=== PATIENT | male | born 1950 | race Caucasian/White ===

== ENCOUNTER → 2019-10-18 08:35 | Outpatient (CLI) | payer MEDICARE, OTHER, SELFPAY ==
--- NOTE | 2019-10-18 10:48 | NEURO ---
NCS and/or EMG Patient Report Ordering Doctor: Kennedy Bower DATE OF SERVICE: 10/18/19 Jesus Cobb II presents for electrodiagnostic testing of the upper limbs due to numbness and tingling. Electrodiagnostic findings: Right median motor nerve demonstrates prolonged distal latency with normal amplitude and reduced conduction velocity. Left median motor nerve demonstrates borderline prolonged distal latency with normal amplitude and borderline reduced conduction velocity. Normal ulnar motor response bilaterally, including conduction across the elbow. Prolonged median sensory latency is noted at the wrist and palm bilaterally. On needle EMG, all muscles tested in upper limb showed no evidence of denervation with normal motor unit action potentials. Electrodiagnostic impression: This is an abnormal study in the upper limbs. 1. Electrodiagnostic findings demonstrate bilateral median mononeuropathy. This is consistent with a moderate bilateral carpal tunnel syndrome. If there are any further questions, please do not hesitate to contact me
== END ==
PROVIDERS: PCP Family Medicine; Referring Provider Physician Assistant; Visit Provider Physician Assistant
DX: R20.2 Paresthesia of skin (principal)
CPT/HCPCS: 95886; 95912

== ENCOUNTER 2019-10-20 07:30 | Outpatient (RCR) | payer MEDICARE, OTHER, SELFPAY ==
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
--- NOTE | 2019-10-02 07:48 | HP.PTREVAL_ITS ---
Dr. Steven Wilson, DO, It has been my pleasure to treat JHON STEPHENS II over the last 8 visits for L knee lat meniscal tear, R knee OA. Please see the progress note below for an update on the physical therapy plan of care! Subjective: Doing OK, not much pain unless crawling or stooping. Overall much better. Still hurts to stretch. Objective/Function: Walks without antalgia today. Steps reciprocal two at a t zully without rail, slight R pain transiently. R knee 0-136 aROM and L knee 0- 138. Patella moving well. Strength is 4+/5 knee ext and flexion B. Bigest issue is still flex in HS at -30 90/90 test initially R tighter than L. quads much improved but still complains of much pain with stretching. crawlis, plays catch in kneeling and stands with each leg through half kneel with only slight L knee pain today. Overall much better. Plan Plan: Pt to continue stretching adn see doctor. f/u with PT in about two weeks, call prior if question. Goals Goal 1:: Sleep consistently without waking due to pain. Goal Time Frame: 4-6 Weeks Goal Progress: Goal Met Goal 2:: I approp HEP, gym to work on appropriate strength without pain increase and flexibility. Goal Time Frame: 4-6 Weeks Goal Progress: Goal Met Goal 3:: Pt feel 90% better in overall pain to 1/10 at worst adn manageable Goal Time Frame: 4-6 Weeks Goal Progress: Progressing Goal 4:: LEFS< 25% disability Goal Time Frame: 4-6 Weeks Anticipated Interventions Patient/Client Instruction: Educate patient on: Condition, Plan of Care For the Purpose of:: To decrease pain, To increase oxygenation perfusion, To improve muscle performance and motor function, To increase tolerance to activity/condition/position, To improve ability of physical actions for home/co mmunity/work/leisure Therapeutic Exercise to Include: Strength training, Flexibilty training, Gait and locomotor training, Neuromotor development, Passive ROM, Active ROM For the Purpose of:: To decrease pain, To improve muscle performance and motor function, To increase tolerance to activity/condition/position, To improve ability of physical actions for home/community/work/leisure Manual Therapy Techniques to Include: Mobilization, Passive ROM, Soft tissue mobilization For the Purpose of:: To decrease pain, To improve nutrient delivery to tissue TENS: Yes IF ES: Yes Thermo therapy (hot pack): Yes For the Purpose of:: To decrease pain Please do not hesitate to contact me at [phone] by phone or if you have questions or concerns regarding this new plan of care! Sincerely, Tex Pike, DPT, OCS, CSCS
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
--- NOTE | 2019-12-26 09:55 | HP.PT.NRP ---
JHON Haas ANGELO SAM was seen in my office for initial evaluation on 09/05/19. The following Plan of Care was established for this patient: Initial Frequency: 2-3x /Week Initial Duration: 4-6 Weeks Patient/Client Instruction: Educate patient on: Condition, Plan of Care For the Purpose of:: To decrease pain, To increase oxygenation perfusion, To improve muscle performance and motor function, To increase tolerance to activity/condition/position, To improve ability of physical actions for home/community/work/leisure Therapeutic Exercise to Include: Strength training, Flexibilty training, Gait and locomotor training, Neuromotor development, Passive ROM, Active ROM For the Purpose of:: To decrease pain, To improve muscle performance and motor function, To increase tolerance to activity/condition/position, To improve ability of physical actions for home/community/work/leisure Manual Therapy Techniques to Include: Mobilization, Passive ROM, Soft tissue mobilization For the Purpose of:: To decrease pain, To improve nutrient delivery to tissue TENS: Yes IF ES: Yes Thermo therapy (hot pack): Yes For the Purpose of:: To decrease pain This patient was last seen in our office 10/20/19. Pertinent comments regarding their Physical therapy will appear below: Pt seen 9 visits of POC and was 75% better. Was to continue via HEP and call if needed to return. at this point, it has been over two months and i will discontinue. At this point I will be discontinuing this patient from physical therapy. I would be happy to see this patient again in the future if found appropriate by the physician. Thank you! Tex Pike, DPT, OCS, CSCS
== END 2019-10-20 19:00 | disposition home or self-care (01) ==
LOC: PT 07:30
PROVIDERS: PCP Family Medicine; Referring Provider Orthopaedic Surgery; Visit Provider Orthopaedic Surgery
DX: S83.282D Other tear of lateral meniscus, current injury, left knee, subsequent encounter (principal); M17.11 Unilateral primary osteoarthritis, right knee
CPT/HCPCS: 97110; 97140; 97162; 97164; 97530

== ENCOUNTER 2021-03-03 06:41 | Outpatient (RCR) | payer MEDICARE, OTHER, SELFPAY ==
--- NOTE | 2021-03-03 07:59 | HP.PTEVAL_ITS ---
Patient's Visit Information JHON STEPHENS II is a 70 year old M referred to Physical Therapy by Kennedy Bower PA-C with a diagnosis of spondylolisthesis, OA hip, DDD.. Date of Evaluation: 03/03/21 Physical Therapist: Tex Pike, DPT, OCS, CSCS - Visit Plan Frequency: 2x /Week Duration: 4-6 Weeks Plan: 2x/week for 4-6 weeks for. 1. roolout and stretch hip flexors, quads. 2. progression on NS awareness and DLS NS strength ex on mat then out to gym. 3. TENS and MH with lossings if needed. - Subjective Pain all over. Neck hurts into L arm and finger tingling. Has LBP and x rays show degeneration DDD . Will see patent law specialist for neck. L hip also hurts L>R. Got steroids and it has really helped all of these except R knee. Is weaning down to one pill today and then will be off of it. Does regular [employer] ex: LE trunk rotation, SKC, DKC lifts for LB. Walking and up and down steps is when hips and LB really hurt. It wakes him up in middle of night at times. Sleeps on side. 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 Lifting does not seem to be bothersome. Does all his basic ADLS on his own, hurts to get out of chair. No nukmbness or tingling in legs. - Pain LBP Pain Intensity (Out of 10): 0 Pain Intensity Range: 0, 7 Comment: worse with being on feet. L hip pain Pain Intensity (Out of 10): 0 Pain Intensity Range: 0, 4 - Objective Walks I and without deviations into PT. trasnfers I, stepx reciprocal with one rail without problems today. Lumbar AROM ext mod llimited and painful L, L SB mod llimited and painful, R SB OK, flexion very tight but no pain, just stretching. reflexes 1/3 patella and achilles. Sensation WNL to gross light touch in LE. Strength LE 4+/5 without myotomal problems. HS and hip flexors mod tight. hip and knee Joint AROM and PROM WFL and symmetrical. - KIN, - FADDIR, - slump test, - SLR, - hip scour. - Balance/Special Test Scores Oswestry Low Back Score: 5 - Goals Goal 1:: sleep withut waking due to pain x 1 week Goal Time Frame: 4-6 Weeks Goal 2:: Pt I appropriate HEP to minimize future pain. Goal Time Frame: 4-6 Weeks Goal 3:: Pain LB and hips 1/10 at worst and 75% better Goal Time Frame: 4-6 Weeks Goal 6:: Work at home without increased pain on house care. Goal Time Frame: 4-6 Weeks - Rehabilitation Potential Physical Therapy Diagnosis: LBP and degenerative changes causing pain issues. Rehabilitation Potential: Fair - Anticipated Interventions Patient/Client Instruction: Educate patient on: Condition, Plan of Care For the Purpose of:: To decrease pain, To increase ROM, To improve muscle performance and motor function, To increase tolerance to activity/condition/position, To improve ability of physical actions for home/community/work/leisure Therapeutic Exercise to Include: Strength training, Flexibilty training, Passive ROM, Active ROM, Dynamic Lumbar Stabilization For the Purpose of:: To decrease pain, To increase ROM, To increase tolerance to activity/condition/position, To improve performance and independence with ADL's, To improve ability of physical actions for home/community/work/leisure Manual Therapy Techniques to Include: Mobilization, Passive ROM, Soft tissue mobilization For the Purpose of:: To decrease pain, To increase ROM TENS: Yes Thermo therapy (hot pack): Yes For the Purpose of:: To decrease pain Thank you for the opportunity to evaluate your patient. For Medicare and Medicare HMO plans, please review the plan of care and approve it. It will need to be FAXED BACK to us at [phone] for Medicare purposes. For Medicare only, by signing this I certify the plan of care. Please let me know if there are questions or concerns regarding this plan of care. Physician Signature: Date:
== END 2021-03-03 19:00 | disposition home or self-care (01) ==
LOC: PT 06:41
PROVIDERS: PCP Family Medicine; Referring Provider Physician Assistant; Visit Provider Physician Assistant
DX: M51.36 Other intervertebral disc degeneration, lumbar region (principal); M43.16 Spondylolisthesis, lumbar region; M16.0 Bilateral primary osteoarthritis of hip
CPT/HCPCS: 97110; 97162

== ENCOUNTER 2021-03-05 18:06 | Inpatient (IN) | payer MEDICARE, OTHER, SELFPAY ==
--- NOTE | 2021-03-05 | COL_PTH ---
PATIENT: JHON STEPHENS II LOC: [facility]3 U#:[id number] AGE/SX: 70/M ROOM: [facility] [place] RE03/05/[address]: Dr. Dori Jaquez MD : [id number] BED: 1 DIS: 03/11/2021 SPEC #: [id number] RECD: 03/06/21 07:08 STATUS: LYNNE RELisa #: [id number] JULISA: 03/05/21 00:[address]: Dori Jaquez DEPT: SURGICAL PATHOLOGY RECD BY: George Gasca ENTERED: 03/06/21 08:55 SP TYPE: COLON OTHR DR: Dr. Leonel Peralta MD Tissues: Small intestine biopsy Procedures: Surgery Specimen Level IV HEADER OPERATION: Exploratory laparotomy, small bowel resection PRE-OP DIAGNOSIS: Perforated bowel TISSUE SUBMITTED: Small intestine MICROSCOPIC DIAGNOSIS Small intestine, segmental resection: Segment of bowel with lumen containing a bezoar (3.5 cm in greatest dimension) with ulceration, congestion and hemorrhage (consistent with ischemic changes). Focal transmural acute inflammation. Serosal congestion, acute inflammation and reactive changes. Mesenteric tissue with acute inflammation, fat necrosis and reactive changes and a few food particles.. Mesenteric tissue with one benign lymph node with reactive changes. DEZ:omar 03/10/2021 MICROSCOPIC DESCRIPTION Slides are reviewed. GROSS DESCRIPTION Received in fixative is one container labeled with the patient's name and designated small intestine. The specimen consists of a segment of small intestine with attached mesenteric tissue measuring 31 cm in length. Both resection margins are stapled. The serosa is markedly congested and covered focally with urbina, purulent exudate. The lumen contains fecal material and a fecalith (bezoar) 7 cm away from one resection margin. No mucosal lesion is identified. The mucosa is congested. No obvious perforation is identified. The bezoar measures 3.5 x 3 x 2 cm. Sections will be submitted after fixation. Specimen gross is discussed with surgeon, Dr. Jaquez, on 03/06/21. / DEZ:omar 03/06/21 Sections of the area of bezoar shows markedly thin bowel wall. Sections of mesenteric tissue do not reveal any obviously enlarged lymph node. Financial Data Analyst sections are submitted in five cassettes as follows: 1 - resection margins, 2 - area of bezoar, 3 & 4 - commercial representative sections from the other area, 5??mesenteric tissue. / DEZ:omar 03/07/21 TC:5 CPT: 96873
[2021-03-05 18:08] VITALS: BP 94/69; PULSE 99; RESP 16; TEMP 36.3; O2SAT 97; BMI 30.5
--- NOTE | 2021-03-05 19:02 | EKG12_ITS ---
Test Reason : ABD PAIN Blood Pressure : / mmHG Vent. Rate : 105 BPM Atrial Rate : 105 BPM P-R Int : 144 ms QRS Dur : 082 ms QT Int : 342 ms P-R-T Axes : 023 -44 038 degrees QTc Int : 452 ms Sinus tachycardia Left axis deviation Inferior infarct , age undetermined Abnormal ECG Confirmed by KIRSTEN ADDISON, XENIA ([id number]), copy editor MOSHE GODDARD ([id number]) on 03/10/2021 9:41:08 AM Referred By: KIMBERLY Confirmed By:RUPA CURTIS MD
--- NOTE | 2021-03-05 19:04 | EX.ED.DYSGE1 ---
HPI History of Present Illness Chief Complaint: Abd Pain Informant: patient Onset/Context/Timing Onset: Hours Context: Gradual Onset Current Severity: Moderate Maximum Severity: Severe Narrative Narrative: Patient present secondary to lower abdominal pain. Patient states he ate to him sandwiches this afternoon for lunch. Shortly after he vomited and then developed increasing lower abdominal pain. He denies fever or chills. He denies prior abdominal surgery. He does not believe he has been passing gas. [facility] Medical History Anxiety and depression Allergy/AdvReac Type Severity Reaction Status Date / Time No Known Allergies Allergy Verified 03/05/21 18:08 Social History Smoking Status: Never smoker ROS ROS ED Constitutional Constitutional ED: Reports sweats; Denies chills or fever(s) Eyes Eyes: Denies change in vision ENT ENT ED: Denies sore throat Cardiovascular Cardiovascular: Denies chest pain Respiratory/Chest Respiratory/Chest: Denies cough or dyspnea Gastrointestinal Gastrointestinal: Reports abdominal pain, nausea and vomiting; Denies diarrhea Genitourinary Genitourinary ED: Denies dysuria Musculoskeletal Musculoskeletal: Denies back pain Integumentary Denies rash Neurologic Neurologic: Denies headache(s) or weakness Allergic/Immunologic Allergic/Immunologic ED: Denies urticaria EXAM Physical Exam Const Vital Signs: 03/05/21 18:08 03/05/21 19:28 Temperature 97.4 F L Temperature Source Temporal Pulse Rate 99 103 H Respiratory Rate 16 27 H Blood Pressure 94/69 Blood Pressure Mean 77 Pulse Ox 97 90 Oxygen Delivery Method Room Air Room Air Positive well nourished and well developed General Appearance ED: well developed HEENT Reports normocephalic and head/scalp atraumatic Eyes PERRL and EOMs intact bilaterally Neck supple Chest Wall inspection of chest normal and palpation of chest normal Resp normal respiratory effort and clear to auscultation bilaterally Cardio regular rate and regular rhythm GI GI Narrative: Abdomen is firm and distended. Rare hypoactive bowel sounds noted. Extremity normal to inspection Neuro oriented x3 and no sensory deficits noted Sensorium / Orientation: alert Motor Exam: strength 5/5 throughout Psych Mood & Affect: anxious Skin no rashes or lesions noted MDM MDM MDM Narrative Medical decision making narrative: Patient was given morphine and Zofran for pain. Lab work, EKG, CT abdomen pelvis obtained. Lab Data Attestation: I reviewed the patient's lab results. Labs: Laboratory Results - last 24 hr 03/05/21 03/05/21 03/05/21 18:58 18:58 19:17 WBC 6.9 RBC 5.68 Hgb 16.3 Hct 49.1 MCV 86.4 MCH 28.7 MCHC 33.2 RDW Std Deviation 44.4 H RDW Coeff of An 13.9 Plt Count 326 MPV 8.6 Immature Gran % (Auto) 0.300 Neut % (Auto) 82.4 H Lymph % (Auto) 7.7 L [place] % (Auto) 1.9 Eos % (Auto) 7.1 H Baso % (Auto) 0.6 Absolute Neuts (auto) 5.7 Absolute Lymphs (auto) 0.53 L Nucleated RBC % 0 Differential Comment SCANNED Sodium 141 Potassium 3.8 Chloride 102 Carbon Dioxide 26.0 Anion Gap 13 BUN 18 Creatinine 1.34 H Estim Creat Clear Calc 57.11 Est GFR (MDRD) Af Amer 68 Est GFR (MDRD) Non-Af 56 L BUN/Creatinine Ratio 13.4 Glucose 160 H Lactic Acid 2.4 H* Calcium 9.8 Total Bilirubin 1.10 H Direct Bilirubin 0.35 H AST 16 ALT 21 Alkaline Phosphatase 109 Total Protein 7.7 Albumin 3.7 Globulin 4.0 Lipase 97 Radiography Diagnostic Testing: Clinical Impression(s) from Imaging Studies Abdomen/Pelvis CT 03/05/21 19:42 ADDENDUM: 03/05/212023 IMPRESSION: (NOT LISTED IN ORDER OF SIGNIFICANCE) Small bowel ileus visualized with evidence for pneumatosis intestinalis and small bowel perforation in the left lower quadrant. This appears to be contained perforation. No abscess visualized. Series 2 image 122. Series 601 image 58. Ascites. There are multiple colonic diverticula consistent with diverticulosis. EKG Initial EKG: Attestation: I personally reviewed and interpreted this EKG as follows: Interpretation: Sinus Tachycardia (Sinus tach at 105. No acute ischemia.) Comments: Sinus tach at 105 with no acute ischemia. Treatment and Re-Evaluation Comments:: Patient did require multiple small doses of Dilaudid for pain control. He is currently on 2 L nasal cannula. Test results discussed with patient and family at bedside. I spoke with Dr. Jaquez and she presented to the emergency room to evaluate the patient. Plan will be to go to the OR. Discharge Plan Triage Chief Complaint: Abd Pain ED Provider: Debra Kenney Dx/Rx/DC Orders Clinical Impression: Perforated bowel Primary Care Provider: Leonel Peralta Referrals: Leonel Peralta MD [Primary Care Provider] - Disposition Disposition: Acute Care Hospital [facility]
[2021-03-05 19:09] LABS: Absolute Lymphocyte Count 0.53 X10^3/uL (0.83-4.51); Absolute Neutrophil Count 5.7 X10^3/uL (2.0-7.7); Basophil# 0.04 X10^3/uL; Basophil% 0.6 % (0-1); Eosinophil# 0.49 X10^3/uL; Eosinophils% 7.1 % (0-5); Hematocrit 49.1 % (40-54); Hemoglobin 16.3 g/dL (13.0-16.5); Lymphocyte # 0.53 X10^3/ul (0.83-4.51); Lymphocyte % 7.7 % (19-41); Mean Corp Hgb Conc 33.2 g/dL (32-36); Mean Corpuscular Hgb 28.7 pg (27.0-32.0); Mean Corpuscular Volume 86.4 fL (80-94); Mean Platelet Vol. 8.6 fl (6.2-12.0); Monocyte# 0.13 X10^3/uL; Monocyte% 1.9 % (0-10); NRBC Flagged by Analyzer 0 % (0-5); Neutrophil # 5.69 X10^3/uL (2.7-7.7); Neutrophil % 82.4 % (47-70); POSITIVE DIFFERENTIAL YES; POSITIVE MORPHOLOGY YES; Platelet Count 326 K/mm3 (150-450); RBC Distribution Width CV 13.9 % (11.6-14.6); RBC Distribution Width SD 44.4 fl (35.1-43.9); Red Blood Count 5.68 M/mm3 (4.6-6.2); White Blood Count 6.9 K/mm3 (4.4-11.0)
[2021-03-05 19:14] LABS: Differential Indicated SCAN CRITERIA MET
[2021-03-05] MEDS: 0.9% Normal Saline 1,000 ML 150 ML IV (19:15)
[2021-03-05] MEDS: Ondansetron 4 MG/2 ML Vial IV ×2 (19:15→19:57)
[2021-03-05] MEDS: Morphine 4 MG/ML Syringe IV (19:15)
[2021-03-05 19:28] VITALS: PULSE 103; RESP 27; O2SAT 90
[2021-03-05 19:28] LABS: AST(SGOT) 16 U/L (15-37); Alanine Aminotransfer ALT/SGPT 21 U/L (16-61); Albumin, Serum 3.7 g/dL (3.2-5.0); Alkaline Phosphatase 109 U/L (45-117); Anion Gap 13 (5-15); BUN 18 mg/dL (7-18); BUN/Creat Ratio 13.4 RATIO (10-20); Bilirubin, Direct 0.35 mg/dL (0.00-0.30); Calcium,Total 9.8 mg/dL (8.5-10.1); Chloride 102 mmol/L (98-107); Creatinine, Serum 1.34 mg/dL (0.70-1.30); EST Glomerular Filtration Rate 56 mL/min (>60); Est Glom Filt Rate - Afr Amer 68 mL/min (>60); Estimated Creatinine Clearance 57.11 ml/min; Glucose 160 mg/dL (74-106); Lipase 97 U/L (73-393); Potassium 3.8 mmol/L (3.5-5.1); Protein, Total 7.7 g/dL (6.4-8.2); Sodium Level 141 mmol/L (136-145)
--- NOTE | 2021-03-05 19:42 | CT_ITS ---
We are attempting to reach an attending provider to discuss findings. An addendum with communication details will be sent when the communication is complete. STUDY: CT Abdomen And Pelvis W/O Contrast Injection 03/05/2021 7:55 PM REASON FOR EXAM: Male, 70 years old. ABDOMINAL PAIN abd pain TECHNIQUE: Transaxial images were obtained without oral contrast, and without intravenous contrast. Individualized dose optimization techniques were used for this CT. COMPARISON: None. FINDINGS: The visualized lung bases are unremarkable. The visualized portions of the heart are within normal limits. Normal liver. Normal gallbladder and extrahepatic biliary system. Normal spleen. Normal pancreas. Normal bilateral adrenal glands. No acute findings of the right kidney. No acute findings of the left kidney. Normal visualized stomach. There are dilated loops of the small intestine in the left lower quadrant. These loops of small bowel containing air in the wall consistent for pneumatosis. There is minimal overlying extraluminal air suggesting regional perforation. There are multiple colonic diverticula consistent with diverticulosis. The appendix is visualized and appears normal. There is a duodenal diverticulum. This is near the pancreatic head. There are no acute findings of the abdominal aorta. Normal inferior vena cava. Subcentimeter mesenteric lymph nodes. Normal urinary bladder. There are bilateral inguinal hernias containing fat. There is no bowel involvement. There is no incarceration. There is no findings suggesting that this is causing a bowel obstruction. Free fluid in the abdomen and pelvis. There is an umbilical hernia containing fat. There are diffuse degenerative changes of the visualized lumbar spine. IMPRESSION: (NOT LISTED IN ORDER OF SIGNIFICANCE) Small bowel ileus visualized with evidence for pneumatosis intestinalis and small bowel perforation in the left lower quadrant. This appears to be contained perforation. No abscess visualized. Series 2 image 122. Series 601 image 58. Ascites. There are multiple colonic diverticula consistent with diverticulosis. Other findings as above. Electronically Signed: Joseph Kumar MD at 20:02 EST , Service support , CT/Abdomen/Pelvis without Cont
[2021-03-05 19:52] LABS: Differential Comment SCANNED
[2021-03-05] MEDS: HYDROmorphone 0.5 MG/0.5 ML SYRINGE IV ×3 (19:58→21:16)
[2021-03-05 20:06] LABS: Lactic Acid 2.4 mmol/L (0.4-1.9)
--- NOTE | 2021-03-05 20:19 | ED.RN ---
patient unable to give urine sample at this time. Dr. Kenney notified and ok without it at this time. No new orders
[2021-03-05] MEDS: 0.9% Normal Saline 1,000 ML 999 ML IV (20:34)
--- NOTE | 2021-03-05 21:00 | HP.PCM.SX_ITS ---
HPI - General General Date of Admission: 03/05/21 HPI Narrative JHON STEPHENS, is a 70 M who presents with sudden onset of abdominal pain today. Prior to today, he had no symptoms, he states He has had nausea/emesis He had a colonoscopy previously. He denies fevers, he has had night sweats. Workup in the ED reveals perforation of small bowel with pneumatosis of intestinal wall, etiology unknown. Patient has normal WBC but with left shift of differential and also elevated lactic acid. Review of his records in [facility] reveals that he has HLP, history of HTN, and anxiety/mood changes. He has a known arachnoid cyst (left middle cranial fossa) - neurosurgery states no follow up required unless he develops symptoms. Previous surgeries: anal fistula repair, colonoscopy -last in 2015 [facility] Medical History Anxiety and depression Allergy/AdvReac Type Severity Reaction Status Date / Time No Known Allergies Allergy Verified 03/05/21 18:08 Social History Smoking Status: Never smoker ROS Constitutional Constitutional: Denies fever(s) Cardiovascular Cardiovascular: Denies chest pain Respiratory/Chest Respiratory/Chest: Denies shortness of breath with exertion or wheezing Gastrointestinal Gastrointestinal: Reports abdominal pain, nausea and vomiting; Denies rectal bleeding Genitourinary Genitourinary: Denies hematuria Musculoskeletal Musculoskeletal: Reports back pain Integumentary Integumentary: Denies jaundice Neurologic Neurologic: Denies focal weakness Psychiatric Psychiatric: Reports anxiety Vital Signs Vital Signs Vital Signs: 03/05/21 18:08 03/05/21 19:28 Temperature 97.4 F L Temperature Source Temporal Pulse Rate 99 103 H Respiratory Rate 16 27 H Blood Pressure 94/69 Blood Pressure Mean 77 Pulse Ox 97 90 Oxygen Delivery Method Room Air Room Air Weight Weight: 102.058 kg Body Mass Index (BMI) 30.5 Physical Exam Narrative obvious abdominal pain Const oriented x3 Resp normal respiratory effort Cardio regular rate GI GI Narrative: generalized tender with rigidity Extremity no clubbing, cyanosis or edema Results Lab / Micro Data Result Diagrams: 03/05/21 18:58 03/05/21 18:58 Labs: Laboratory Results - last 24 hr 03/05/21 18:58: WBC 6.9, RBC 5.68, Hgb 16.3, Hct 49.1, MCV 86.4, MCH 28.7, MCHC 33.2, RDW Std Deviation 44.4 H, RDW Coeff of An 13.9, Plt Count 326, MPV 8.6, Immature Gran % (Auto) 0.300, Neut % (Auto) 82.4 H, Lymph % (Auto) 7.7 L, [place] % (Auto) 1.9, Eos % (Auto) 7.1 H, Baso % (Auto) 0.6, Absolute Neuts (auto) 5.7, Absolute Lymphs (auto) 0.53 L, Nucleated RBC % 0, Differential Comment SCANNED 03/05/21 18:58: Sodium 141, Potassium 3.8, Chloride 102, Carbon Dioxide 26.0, Anion Gap 13, BUN 18, Creatinine 1.34 H, Estim Creat Clear Calc 57.11, Est GFR (MDRD) Af Amer 68, Est GFR (MDRD) Non-Af 56 L, BUN/Creatinine Ratio 13.4, Glucose 160 H, Calcium 9.8, Total Bilirubin 1.10 H, Direct Bilirubin 0.35 H, AST 16, ALT 21, Alkaline Phosphatase 109, Total Protein 7.7, Albumin 3.7, Globulin 4.0, Lipase 97 03/05/21 19:17: Lactic Acid 2.4 H* Micro: Microbiology 03/05/21 20:38 Nasal Secretion SARS-CoV-2 Antigen (Rapid) - Final Radiology Impression Abdomen/Pelvis CT 03/05/21 19:42 ADDENDUM: 03/05/212023 Assessment & Plan Assessment/Plan (1) Perforated bowel: PLAN: I plan proceeding urgently to the Operating Room for exploratory laparotomy, possible bowel resection. I have told patient and his , I do not know the etiology to his presentation, given that he has not had previous abdominal surgery. Possibility of cancer has been discussed. Risks/benefits of surgery discussed, including but not limited to: infection, bleeding, injury to any intraabdominal organs, scar tissue, incisional hernias, etc. the patient wishes to proceed
[2021-03-05 21:22] VITALS: TEMP 36.4; BMI 30.5
[2021-03-05 21:27] LABS: Color, Urine Amber (Yellow); Glucose, Dipstick Normal (Normal); Ketone-Dipstick 5 mg/dl (Negative); Leukocyte Esterase-Dipstick 25 /ul (Negative); Mucous, Urine 0 SEEN /hpf (<or=2+); Nitrite-Dipstick Negative (Negative); Occult Blood-Urine 10 /ul (Negative); Protein-Dipstick 30 mg/dl (Negative); Squamous Epithelial Cells - UA 0 SEEN /hpf (0-5); Urine Clarity Sl. Cloudy (Clear); Urine Urobilinogen 1 mg/dl (Normal)
[2021-03-05 21:28] VITALS: BP 132/76; PULSE 91; RESP 31; TEMP 36.4; O2SAT 95
[2021-03-05 21:34] LABS: Urine Bilirubin Dipstick 1 mg/dL (Negative)
[2021-03-05 21:36] LABS: Hyaline Cast 25-50 SEEN /lpf (0-5)
[2021-03-05 21:37] LABS: Bacteria 1+ /hpf (None Seen); Calcium Oxalate Crystals Ur 1+ /hpf (<or=2+); Red Blood Cells-Urine 0-5 SEEN /hpf (0-5); White Blood Cells 5-10 SEEN /hpf (0-5)
[2021-03-05] MEDS: Lactated Ringers 1,000 ML 125 ML IV (23:00)
[2021-03-05 23:24] LABS: Reflex Lactate? Y
[2021-03-06] VITALS (11 sets, daily range): BP systolic 100–132; BP diastolic 59–76; PULSE 81–88; RESP 16–20; TEMP 36.3–37.6; O2SAT 91–95; BMI 31.2
--- NOTE | 2021-03-06 00:28 | PCM.OPRPT ---
Report of Operation Date of Procedure: 03/05/21 Pre-Operative Diagnosis: small bowel perforation Post-Operative Diagnosis: small bowel perforation secondary to small intestine bezoar, peritonitis Surgery/Procedure Performed:: exploratory laparotomy, small bowel resection Description of Surgical Findings:: small bowel with obstructing bezoar and proximal perforation to bezoar - jejunum Surgeon: Dori Jaquez Type of Anesthesia: General Anesthesiologist: Bhargav Araya Specimen's removed: small bowel segment - jejunum Drains: 10 Fr in pelvis Estimated Blood Loss (mL): 100 ml Fluids Replaced: 1500 ml RL Description of Procedure: After informed consent was obtained, the patient was brought to the Operating Room. Appropriate time out protocol was followed. The patient was then placed under general anesthesia. The abdomen was then prepped with a sterile surgical skin preparation. Sterile surgical drapes were placed. This skin and subcutaneous tissues were then widely infiltrated with the local anesthetic. A skin incision was then made with a 10 blade scalpel at the midline superior and inferior to umbilicus It was carried down to the subcutaneous tissues using sharp dissection. Any hemorrhage was adequately controlled with electrocautery. The fascia was identified. It was carefully incised and the intraabdominal cavity was entered. There was a small umbilical hernia with fat. There was cloudy brown peritoneal fluid noted and it was purulent consistent with peritonitis. There was a segment of small bowel - jejunum - with ecchymoses and area of perforation with a gangrenous wall at that site. Just distal to this was a large obstructing small intestinal bezoar. A segment of small bowel was then marked for resection - proximal and distal to the above described area. A linear 55 JN stapling device was fired at the proximal chosen site and at the distally chosen site. The mesentery of this segment of small bowel was then transected and ligated with vicryl suture. The segment of small bowel was about 20 cm, It was thus removed and forward to pathology for analysis. The antimesenteric corners of the stapled ends of the small bowel were then brought together and the corners sharply transected. Each limb of the linear GI 55 stapling device was then placed in the proximal and distal transected ends of the small bowel and then fired. Closure of the resulting opening was then done with a TIA 60 stapling device. Thus, this was a side to side, functional end to end, stapled anastomosis. No active bleeding was noted at the anastomosis. The anastomosis was palpated and widely patent. A heel stitch was placed using 3-0 vicryl. The resulting mesentery opening was closed with running 3-0 vicryl suture. The small bowel was examined from the ligament of Treitz to the ileocecal valve and no other points of obstruction or injury was noted The small bowel was then placed back in its proper anatomical position. The abdomen was vigorously irrigated with warmed normal saline, and all irrigant was aspirated out. Several liters of saline were used due to the peritonitis and this was done until the fluid was clear. An NG tube was placed by the anesthesiologist with great difficulty, it had to be pulled into the stomach from intraabdominally. A 10 Fr passive round drain was placed in the pelvis and brought out via a separate skin incision. Sponge, instrument and suture count were verified and correct. The fascia was then reapproximated along the midline vertically with a continuous looped #1 PDS suture. The wound was irrigated with betadyne and saline. The skin was reapproximated with skin danna 4x4s were placed for a sterile dressing. The patient was then extubated by the anesthesia provider. The patient was brought from to the Recovery Room in stable condition. Complications none noted Admit VTE Documentation VTE Present on Admission: Yes VTE Mechan Device Prophylaxis: SCD's
[2021-03-06] MEDS: LORazepam 2 MG/ML Syringe 0.5 MG IV ×4 (00:53→19:36)
[2021-03-06] MEDS: HYDROmorphone 0.5 MG/0.5 ML SYRINGE IV ×2 (01:03→18:55)
--- NOTE | 2021-03-06 01:30 | PCS.PANDOC ---
PANDEMIC DOCUMENTATION INITIATED: Date: 03/06/21 Time: 0122
[2021-03-06] MEDS: 0.9% Normal Saline 1,000 ML 125 ML IV ×3 (02:00→18:01)
[2021-03-06 02:48] LABS: Lactic Acid 1.9 mmol/L (0.4-1.9)
[2021-03-06] MEDS: Famotidine 200 MG/20 ML MDV 20 MG in 0.9% Normal Saline (Pres. free 8 ML 300 MG IV ×3 (03:05→21:36)
[2021-03-06] MEDS: 0.9% Saline Lock 10 ML Syringe IV ×2 (03:05→07:30)
[2021-03-06] MEDS: Morphine 2 MG/ML Syringe IV ×6 (03:05→15:52)
[2021-03-06 07:17] LABS: Anion Gap 4 (5-15); BUN 23 mg/dL (7-18); BUN/Creat Ratio 18.3 RATIO (10-20); Chloride 111 mmol/L (98-107); Creatinine, Serum 1.26 mg/dL (0.70-1.30); EST Glomerular Filtration Rate 60 mL/min (>60); Est Glom Filt Rate - Afr Amer 73 mL/min (>60); Estimated Creatinine Clearance 60.73 ml/min; Glucose 124 mg/dL (74-106); Potassium 4.9 mmol/L (3.5-5.1); Sodium Level 141 mmol/L (136-145)
--- NOTE | 2021-03-06 07:17 | PCM.PN.SRG ---
Subjective Subjective patient complaint of incisional pain - rated as 8 out of 10, receiving morphine and/or dilaudid (he presented with abdominal pain to ED rated as 12 out of 10) Objective Data Objective Data Vital Signs: Vital Signs Temp Pulse Resp BP Pulse Ox 98.3 F 84 16 114/71 94 03/06/21 05:33 03/06/21 05:33 03/06/21 05:33 03/06/21 05:33 03/06/21 05:33 Oxygen Flow Rate (L/min) 4 Oxygen Delivery Method Nasal Cannula Weight: 104.553 kg Body Mass Index (BMI) 31.2 Intake & Output: Intake and Output for Last 24 Hours 03/04/21 03/05/21 03/06/21 23:59 23:59 23:59 Intake Total 1185 / 1185 510 / 510 Output Total 280 / 280 Balance 1185 / 1185 230 / 230 Lab / Micro Data Result Diagrams: 03/05/21 18:58 03/06/21 06:35 Labs: Laboratory Results - last 24 hr 03/05/21 18:58: WBC 6.9, RBC 5.68, Hgb 16.3, Hct 49.1, MCV 86.4, MCH 28.7, MCHC 33.2, RDW Std Deviation 44.4 H, RDW Coeff of An 13.9, Plt Count 326, MPV 8.6, Immature Gran % (Auto) 0.300, Neut % (Auto) 82.4 H, Lymph % (Auto) 7.7 L, [place] % (Auto) 1.9, Eos % (Auto) 7.1 H, Baso % (Auto) 0.6, Absolute Neuts (auto) 5.7, Absolute Lymphs (auto) 0.53 L, Nucleated RBC % 0, Differential Comment SCANNED 03/05/21 18:58: Sodium 141, Potassium 3.8, Chloride 102, Carbon Dioxide 26.0, Anion Gap 13, BUN 18, Creatinine 1.34 H, Estim Creat Clear Calc 57.11, Est GFR (MDRD) Af Amer 68, Est GFR (MDRD) Non-Af 56 L, BUN/Creatinine Ratio 13.4, Glucose 160 H, Calcium 9.8, Total Bilirubin 1.10 H, Direct Bilirubin 0.35 H, AST 16, ALT 21, Alkaline Phosphatase 109, Total Protein 7.7, Albumin 3.7, Globulin 4.0, Lipase 97 03/05/21 19:17: Lactic Acid 2.4 H* 03/05/21 21:18: Urine Color [place], Urine Clarity Sl. Cloudy, Urine pH 5.0, Ur Specific [place] 1.020, Urine Protein 30 H, Urine Glucose (UA) Normal, Urine Ketones 5 H, Urine Occult Blood 10 H, Urine Nitrite Negative, Urine Bilirubin 1 H, Urine Urobilinogen 1 H, Ur Leukocyte Esterase 25 H, Urine RBC 0-5 SEEN, Urine WBC 5-10 SEEN, Ur Squamous Epith Cells 0 SEEN, Calcium Oxalate Crystal 1+, Urine Bacteria 1+, Hyaline Casts 25-50 SEEN, Urine Mucus 0 SEEN 03/06/21 02:15: Lactic Acid 1.9 Micro: Microbiology 03/05/21 20:38 Nasal Secretion SARS-CoV-2 Antigen (Rapid) - Final Radiography Diagnostic Testing: Radiology Impression Abdomen/Pelvis CT 03/05/21 19:42 ADDENDUM: 03/05/212023 Physical Exam Const alert and oriented x3 General Appearance: cooperative Neck supple and no JVD Resp normal respiratory effort Effort and Inspection: able to speak in complete sentences Cardio regular rate GI GI Narrative: protuberant, dressing intact, incisional tenderness, no bowel sounds, YENY drain out is serosanguinous - slightly cloudy Assessment & Plan Assessment/Plan (1) Perforated bowel: PLAN: Intraoperative findings of perforated small bowel secondary to obstructing bezoar - patient and his given explanation for this - no cancer noted Also explained findings of peritonitis - patient will need to ambulate, increase movement, incentive spirometry to avoid secondary infection - such as intraabdominal abscess/pneumonia/etc. Wound primarily closed - high risk of wound infection (this was explained to them)- easier to manage with small wound openings (may also try seroma debulking) Continue antibiotics, IV hydration (serum lactic acid has normalized as well as serum creatinine) continue NG tube decompression until flatus, IV pepcid Patient has not urinated yet, but denies prostatic symptoms - will continue to monitor Patient was low pain tolerance - will trial round the clock toradol for better control
[2021-03-06 07:22] LABS: Lactic Acid 1.5 mmol/L (0.4-1.9)
--- NOTE | 2021-03-06 13:15 | CASEMGMT ---
RN CM PSYCHOLOGY FELLOW CM to room to meet with patient for initial transition planning/care coordination assessment. RN LUDY introduced self and role at [facility]. Pt voices understanding and consents to assessment at this time. Pt sitting up in bed. @ bedside. Information gathered from both pt and . Care providers, pharmacy, and demographics verified/updated at this time. PCP: Dr Peralta Specialists: [facility]/Dr Wilson Preferred Pharmacy: [facility] Retail Insurance: MCR, MMO Prescription Benefit: Yes Living Will/HPOA: Has both LW and HPOA, who is his , Anabela LNOK: , Anabela Living Arrangements: Lives w/ in 2-story home w/5 steps to enter. Does well w/stairs. Independent prior to hospitalization. able to assist as needed. Transportation: Pt states drives self and states no transportation concerns at this time. does not drive. Son will take pt home @ d/c. DME: Denies using any DME and denies needs. HHC/SNF: No history of either. Follow for possible need of HHC Pt wishes to return home and states has no concerns with going home at time of discharge. CM to follow for any discharge planning/needs. Pt/ voice no concerns/needs at this time. Advised them to ask for CM if any questions/concerns/needs arise. They voice understanding. PLAN: Home w/spousal support and discharge plans in place. Follow for possible need of HHC. Carol ROBIN RN, CM
[2021-03-06] MEDS: Ketorolac 30 MG/ML Syringe 15 MG IV ×2 (13:33→21:35)
[2021-03-07] MEDS: LORazepam 2 MG/ML Syringe 0.5 MG IV ×3 (01:47→22:36)
[2021-03-07] MEDS: 0.9% Normal Saline 1,000 ML 125 ML IV ×3 (01:48→17:30)
[2021-03-07 02:00] VITALS: BP 129/79; PULSE 76; RESP 18; TEMP 37; O2SAT 94
[2021-03-07] MEDS: HYDROmorphone 0.5 MG/0.5 ML SYRINGE IV ×3 (05:24→19:35)
[2021-03-07] MEDS: Ketorolac 30 MG/ML Syringe 15 MG IV ×3 (05:25→21:27)
[2021-03-07 07:45] VITALS: BP 116/76; PULSE 72; RESP 18; TEMP 36.8; O2SAT 95
--- NOTE | 2021-03-07 08:58 | PCM.PN.SRG ---
Subjective Subjective patient still complaint of 8 out 10 incisional pain despite - round the clock - toradol, and also dilaudid and morphine He tells me that he has bad incisional pain but then closes his eyes and goes to sleep as I am talking to him Objective Data Objective Data Vital Signs: Vital Signs Temp Pulse Resp BP Pulse Ox 98.2 F 72 18 116/76 95 03/07/21 07:45 03/07/21 07:45 03/07/21 07:45 03/07/21 07:45 03/07/21 07:45 Oxygen Flow Rate (L/min) 2 Oxygen Delivery Method Nasal Cannula Weight: 104.553 kg Body Mass Index (BMI) 31.2 Intake & Output: Intake and Output for Last 24 Hours 03/05/21 03/06/21 03/07/21 23:59 23:59 23:59 Intake Total 1185 / 1185 2639.17 / 2639.17 1052.92 / 1052.92 Output Total 1745 / 1745 910 / 910 Balance 1185 / 1185 894.17 / 894.17 142.92 / 142.92 Lab / Micro Data Result Diagrams: 03/05/21 18:58 03/06/21 06:35 Micro: Microbiology 03/05/21 20:38 Nasal Secretion SARS-CoV-2 Antigen (Rapid) - Final Physical Exam Const alert and oriented x3 General Appearance: cooperative Neck supple and no JVD Resp normal respiratory effort Effort and Inspection: able to speak in complete sentences GI GI Narrative: abdomen with complaint of generalized abdominal pain, no bowel sounds, dressing intact, YENY output is serosanguinous with sediment Assessment & Plan Assessment/Plan (1) Perforated bowel: PLAN: POD #1.5 s/p small bowel enterectomy - findings of perforated small bowel due to food impaction, generalized peritonitis\ Continue present therapy with IV antibiotics, NG tube decompression Patient with multiple complaints of discomfort - wants to drink - will start ice chips, but I have explained to patient why he can't take po yet encourage ambulation/movement, incentive spirometry awaiting return of bowel function - patient needs to pass flatus before NG tube can be removed and this was explained to patient also
[2021-03-07] MEDS: Famotidine 200 MG/20 ML MDV 20 MG in 0.9% Normal Saline (Pres. free 8 ML 300 MG IV ×2 (09:58→21:26)
[2021-03-07] MEDS: 0.9% Saline Lock 10 ML Syringe IV ×3 (14:32→22:31)
[2021-03-07 15:14] VITALS: BP 136/83; PULSE 77; RESP 20; TEMP 36.8; O2SAT 92
[2021-03-07 15:53] VITALS: O2SAT 92
[2021-03-07 19:50] VITALS: BP 158/93; PULSE 83; RESP 16; TEMP 37.2; O2SAT 96
[2021-03-08] MEDS: HYDROmorphone 0.5 MG/0.5 ML SYRINGE IV ×2 (00:16→19:46)
[2021-03-08] MEDS: 0.9% Normal Saline 1,000 ML 125 ML IV ×2 (01:40→09:40)
[2021-03-08 02:10] VITALS: BP 144/90; PULSE 70; RESP 18; TEMP 36.9; O2SAT 96
[2021-03-08] MEDS: Ketorolac 30 MG/ML Syringe 15 MG IV ×3 (06:04→22:08)
[2021-03-08] MEDS: 0.9% Saline Lock 10 ML Syringe IV ×4 (06:14→22:08)
[2021-03-08] MEDS: LORazepam 2 MG/ML Syringe 0.5 MG IV (06:14)
[2021-03-08 06:54] VITALS: O2SAT 95
[2021-03-08 08:18] VITALS: BP 152/81; PULSE 79; RESP 18; TEMP 36.4; O2SAT 97
[2021-03-08] MEDS: Famotidine 200 MG/20 ML MDV 20 MG in 0.9% Normal Saline (Pres. free 8 ML 300 MG IV ×2 (10:15→22:07)
[2021-03-08 13:34] LABS: Absolute Lymphocyte Count 0.33 X10^3/uL (0.83-4.51); Absolute Neutrophil Count 13.5 X10^3/uL (2.0-7.7); Basophil# 0.02 X10^3/uL; Basophil% 0.1 % (0-1); Hemoglobin 11.8 g/dL (13.0-16.5); Lymphocyte # 0.33 X10^3/ul (0.83-4.51); Lymphocyte % 2.3 % (19-41); Mean Corp Hgb Conc 32.8 g/dL (32-36); Mean Corpuscular Hgb 29.4 pg (27.0-32.0); Mean Corpuscular Volume 89.8 fL (80-94); Mean Platelet Vol. 9.1 fl (6.2-12.0); Monocyte# 0.28 X10^3/uL; NRBC Flagged by Analyzer 0 % (0-5); Neutrophil # 13.49 X10^3/uL (2.7-7.7); POSITIVE DIFFERENTIAL YES; Platelet Count 184 K/mm3 (150-450); RBC Distribution Width CV 14.7 % (11.6-14.6); RBC Distribution Width SD 48.9 fl (35.1-43.9); Red Blood Count 4.01 M/mm3 (4.6-6.2); White Blood Count 14.2 K/mm3 (4.4-11.0)
[2021-03-08 13:38] LABS: Differential Indicated SCAN CRITERIA MET
[2021-03-08 13:54] LABS: ALB/GLOB Ratio 0.6 RATIO (0.9-2.4); AST(SGOT) 25 U/L (15-37); Alanine Aminotransfer ALT/SGPT 19 U/L (16-61); Albumin, Serum 2.2 g/dL (3.2-5.0); Alkaline Phosphatase 81 U/L (45-117); Anion Gap 5 (5-15); BUN 25 mg/dL (7-18); BUN/Creat Ratio 34.2 RATIO (10-20); Calcium,Total 8.2 mg/dL (8.5-10.1); Chloride 118 mmol/L (98-107); Creatinine, Serum 0.73 mg/dL (0.70-1.30); EST Glomerular Filtration Rate 113 mL/min (>60); Est Glom Filt Rate - Afr Amer 136 mL/min (>60); Estimated Creatinine Clearance 76.52 ml/min; Globulin 3.8 g/dL (2.2-4.2); Glucose 93 mg/dL (74-106); Magnesium 2.4 mg/dL (1.6-2.6); Phosphorus 0.8 mg/dL (2.5-4.9); Potassium 3.4 mmol/L (3.5-5.1); Sodium Level 147 mmol/L (136-145)
[2021-03-08 14:00] VITALS: RESP 18
--- NOTE | 2021-03-08 14:07 | PN.SURG_ITS ---
Subjective Subjective Patient reported by nurses to be most uncooperative and fighting them with regards to treatment and threatening to pull out NG tube, IV, etc. States that he does not believe what we tell him - with regard to his surg jayy/hospitalization/etc. States that we are trying to poison him, etc. Last night, a code efra was almost called on this patient. patient has always been relatively 'ornery', questioning the validity of our medical treatments and surgical care - but this seems to have worsened over time Objective Data Objective Data Vital Signs: Vital Signs Temp Pulse Resp BP Pulse Ox 97.6 F L 79 18 152/81 H 97 03/08/21 08:18 03/08/21 08:18 03/08/21 08:18 03/08/21 08:18 03/08/21 08:18 Oxygen Flow Rate (L/min) 2 Oxygen Delivery Method Nasal Cannula Weight: 104.553 kg Body Mass Index (BMI) 31.2 Intake & Output: Intake and Output for Last 24 Hours 03/06/21 03/07/21 03/08/21 23:59 23:59 23:59 Intake Total 2639.17 / 2639.17 3156.67 / 3156.67 2510.42 / 2510.42 Output Total 1745 / 1745 1510 / 1620 615 / 615 Balance 894.17 / 894.17 1646.67 / 1536.67 1895.42 / 1895.42 Lab / Micro Data Result Diagrams: 03/08/21 13:22 03/08/21 13:22 Labs: Laboratory Results - last 24 hr 03/08/21 13:22: WBC 14.2 H, RBC 4.01 L, Hgb 11.8 L, Hct 36.0 L, MCV 89.8, MCH 29.4, MCHC 32.8, RDW Std Deviation 48.9 H, RDW Coeff of An 14.7 H, Plt Count 184, MPV 9.1, Immature Gran % (Auto) 0.600, Neut % (Auto) 95.0 H, Lymph % (Auto) 2.3 L, [place] % (Auto) 2.0, Eos % (Auto) 0.0, Baso % (Auto) 0.1, Absolute Neuts (auto) 13.5 H, Absolute Lymphs (auto) 0.33 L, Nucleated RBC % 0 03/08/21 13:22: Sodium 147 H, Potassium 3.4 L, Chloride 118 H, Carbon Dioxide 24.0, Anion Gap 5, BUN 25 H, Creatinine 0.73, Estim Creat Clear Calc 76.52, Est GFR (MDRD) Af Amer 136, Est GFR (MDRD) Non-Af 113, BUN/Creatinine Ratio 34.2 H, Glucose 93, Calcium 8.2 L, Phosphorus 0.8 L*, Magnesium 2.4, Total Bilirubin 0.70, AST 25, ALT 19, Alkaline Phosphatase 81, Total Protein 6.0 L, Albumin 2.2 L, Globulin 3.8, Albumin/Globulin Ratio 0.6 L 03/08/21 13:22: Ammonia 16.0 Micro: Microbiology 03/05/21 20:38 Nasal Secretion SARS-CoV-2 Antigen (Rapid) - Final Physical Exam Const alert Constitutional Narrative: when asked where he was, he pointed to one of the nurses assisting him and stated that he was at her house he answered to correct year - uncooperative in answering further questions to check his mental status Did not appear to be in any abdominal pain/discomfort HEENT normocephalic Neck supple and no JVD Resp normal respiratory effort Effort and Inspection: able to speak in complete sentences GI GI Narrative: abdomen is soft and benign, incisional tenderness Dressing changed and wound is clean, dry, and intact YENY output is serosanginous, more serous than previous, not cloudy Assessment & Plan Assessment/Plan (1) Perforated bowel: PLAN: POD#2.5 exploratory laparotomy, resection of small bowel Patient had been verbally difficult previously, but now becoming more so - threatening to leave/pull out tubing/etc. Will obtain Internal Medicine consultation With regard to surgery, patient appears to be recovering well - has ambulated in hallways this morning and does not seem in undue pain, despite stating that his pain level is 8 out of 10 awaiting return to bowel function - given findings of gross peritonitis, this will take some time - expect postoperative ileus for a few days
--- NOTE | 2021-03-08 14:20 | PCM.PN.HOSP ---
Subjective Subjective PatientWas admitted in the evening of 03/05/2021 with perforated bowel. Went to the OR early in the morning on 03/06/2021 and an ex lap with small bowel resection at the jejunum was performed. Patient has had a persistent ileus in the immediate postoperative period which was to be anticipated given perforation and surgery. Etiology of obstruction/perforation was a small intestinal bezoar. He is being treated for peritonitis with IV antibiotics. We have been consulted for postoperative confusion. Per discussion with family at the bedside his baseline mentation involves no dementia or memory loss. At this time he remains confused. He has been dosed with IV narcotics as well as Ativan overnight for agitation. He is easily redirectable and currently family is at bedside. He has been able to move around without any focal deficits in response to name although he is hard of hearing. Objective Data Objective Data Vital Signs: Vital Signs Temp Pulse Resp BP Pulse Ox 97.6 F L 79 18 152/81 H 97 03/08/21 08:18 03/08/21 08:18 03/08/21 08:18 03/08/21 08:18 03/08/21 08:18 Oxygen Flow Rate (L/min) 2 Oxygen Delivery Method Nasal Cannula Weight: 104.553 kg Body Mass Index (BMI) 31.2 Intake & Output: Intake and Output for Last 24 Hours 03/06/21 03/07/21 03/08/21 23:59 23:59 23:59 Intake Total 2639.17 / 2639.17 3156.67 / 3156.67 2510.42 / 2510.42 Output Total 1745 / 1745 1510 / 1620 615 / 615 Balance 894.17 / 894.17 1646.67 / 1536.67 1895.42 / 1895.42 Lab / Micro Data Result Diagrams: 03/08/21 13:22 03/08/21 13:22 Labs: Laboratory Results - last 24 hr 03/08/21 13:22: WBC 14.2 H, RBC 4.01 L, Hgb 11.8 L, Hct 36.0 L, MCV 89.8, MCH 29.4, MCHC 32.8, RDW Std Deviation 48.9 H, RDW Coeff of An 14.7 H, Plt Count 184, MPV 9.1, Immature Gran % (Auto) 0.600, Neut % (Auto) 95.0 H, Lymph % (Auto) 2.3 L, [place] % (Auto) 2.0, Eos % (Auto) 0.0, Baso % (Auto) 0.1, Absolute Neuts (auto) 13.5 H, Absolute Lymphs (auto) 0.33 L, Nucleated RBC % 0 03/08/21 13:22: Sodium 147 H, Potassium 3.4 L, Chloride 118 H, Carbon Dioxide 24.0, Anion Gap 5, BUN 25 H, Creatinine 0.73, Estim Creat Clear Calc 76.52, Est GFR (MDRD) Af Amer 136, Est GFR (MDRD) Non-Af 113, BUN/Creatinine Ratio 34.2 H, Glucose 93, Calcium 8.2 L, Phosphorus 0.8 L*, Magnesium 2.4, Total Bilirubin 0.70, AST 25, ALT 19, Alkaline Phosphatase 81, Total Protein 6.0 L, Albumin 2.2 L, Globulin 3.8, Albumin/Globulin Ratio 0.6 L 03/08/21 13:22: Ammonia 16.0 Micro: Microbiology 03/05/21 20:38 Nasal Secretion SARS-CoV-2 Antigen (Rapid) - Final Physical Exam Const alert and no apparent distress Constitutional Narrative: Obese older white male lying in bed, family at bedside, nontoxic appearing but confused, fairly hard of hearing Orientation / Consciousness: confused Exam Limitations: other limitations Nutritional Appearance: overweight HEENT head/scalp atraumatic, moist oral mucous membranes and oropharynx normal HEENT Narrative: Mallampati 3, no thrush, dentition fair, NG tube in right nares Head and Scalp: normocephalic Eyes PERRL, EOMs intact bilaterally and conjunctivae normal Eyes Narrative: No scleral icterus Neck no lymphadenopathy, supple and no JVD Neck Narrative: Trachea midline, no thyroid enlargement Resp normal respiratory effort, no retractions, no use of accessory muscles and clear to auscultation bilaterally Auscultation: Negative for crackles, rales or rhonchi Cardio regular rate, regular rhythm, S1 normal heart sound, S2 normal heart sound, no murmurs, no rub, no gallops, no clicks and no JVD GI soft to palpation and non-distended GI Narrative: Hypoactive bowel sounds, midline incision with ABD covering site-no drainage on ABD Palpation: tender Extremity no clubbing, cyanosis or edema Peripheral Pulses: Yes pulses 2+ throughout Skin no rashes or lesions noted, no wounds, skin turgor normal, no jaundice, no petechiae and no mottling Neuro moves all extremities and no focal motor deficits Sensorium / Orientation: awake Speech: speech normal Psych Psych Narrative: Fairly confused but follows commands well Assessment & Plan Assessment/Plan (1) Perforated bowel: (2) Hypokalemia: (3) Hypophosphatemia: (4) Hypernatremia: (5) Hyperchloremia: (6) Acute anemia: (7) Toxic metabolic encephalopathy: PLAN: Assessment: Perforated bowel status post small bowel resection Peritonitis Metabolic/toxic encephalopathy Hypokalemia Hypophosphatemia Hypernatremia Hyperchloremia Acute normocytic postoperative anemia Anxiety Depression Insomnia Seasonal allergies Plan: -Potassium phosphate bolus -Recheck a.m. BMP and phosphorus level -Change IV fluids from normal saline at 150 cc/h to half-normal saline at 75 cc/h -Monitor I's and O's -Continue incentive spirometer -Continue IV antibiotics -Ammonia level is normal -Discontinue as needed Ativan --> Patient takes low-dose oral lorazepam only on a as needed basis not scheduled -Continue IV opiate and Toradol for pain but watch renal function closely -No focal deficits but could consider CT head if encephalopathy does not improve with time -I do suspect his encephalopathy is related to immediate postoperative state, infection, and medications -Lower dose IV Haldol ordered for agitation through the night but would prefer redirection as patient does respond well to this and avoiding medications that could alter his mental status would likely be beneficial Charges/Coding Visit Charges Inpatient E&M: 20186 [facility] L3
[2021-03-08 14:38] LABS: Differential Comment SCANNED
[2021-03-08] MEDS: 0.45% Normal Saline 1,000 ML 75 ML IV (14:51)
--- NOTE | 2021-03-08 16:14 | RAD_ITS ---
STUDY: X-RAY CHEST REASON FOR EXAM: Male, 70 years old. elevated WBC, risk for aspiration due to SBO TECHNIQUE: Single AP portable view of the chest. COMPARISON: None. FINDINGS: There is a nasogastric tube with the tip in the distal stomach but not included in the [id number]. The lungs are underexpanded with vascular crowding, otherwise clear. There is no demonstrated pleural abnormality. Normal size heart. Normal mediastinum and xander. Normal visualized pulmonary arteries. Normal visualized aortic arch and descending thoracic aorta. There are diffuse degenerative changes of the visualized thoracic spine. There is degenerative osteoarthritis of the bilateral shoulders. There is no demonstrated abnormality of the visualized soft tissue structures of the upper abdomen. RAD/Chest 1 View (Portable) IMPRESSION: No acute cardiopulmonary disease. Nasogastric tube as described in a normal location. Electronically Signed: Victoria Tan MD at 3:05 EST , Service support ,
[2021-03-08 16:45] VITALS: BP 154/80; PULSE 80; RESP 18; TEMP 37.2; O2SAT 98
[2021-03-08 19:32] VITALS: BP 136/77; PULSE 61; RESP 16; TEMP 37.8; O2SAT 97
[2021-03-08] MEDS: Ondansetron 4 MG/2 ML Vial IV (19:45)
--- NOTE | 2021-03-08 21:52 | NURSING ---
called pt radha per instructions to see if they can come sit with pt, nursing & warp tester have been sitting with pt since change of shift to help prevent pt from pulling out ng but have to tend to other pt. radha will talk to pt son to see if someone can come in
--- NOTE | 2021-03-08 22:14 | NURSING ---
nursing supv providing a sitter for pt, supv notified d-i-l that she doesnt need to come in at this time.
[2021-03-09] VITALS (7 sets, daily range): BP systolic 139–152; BP diastolic 74–86; PULSE 52–58; RESP 16; TEMP 36.3–37; O2SAT 94–97
[2021-03-09] MEDS: HYDROmorphone 0.5 MG/0.5 ML SYRINGE IV ×3 (00:01→22:36)
[2021-03-09] MEDS: 0.9% Saline Lock 10 ML Syringe IV ×4 (00:01→22:37)
[2021-03-09] MEDS: 0.45% Normal Saline 1,000 ML 75 ML IV (03:33)
[2021-03-09] MEDS: Ketorolac 30 MG/ML Syringe 15 MG IV ×3 (05:42→20:17)
[2021-03-09 07:12] LABS: Absolute Lymphocyte Count 0.46 X10^3/uL (0.83-4.51); Absolute Neutrophil Count 7.6 X10^3/uL (2.0-7.7); Basophil# 0.01 X10^3/uL; Basophil% 0.1 % (0-1); Hematocrit 33.8 % (40-54); Hemoglobin 10.8 g/dL (13.0-16.5); Lymphocyte # 0.46 X10^3/ul (0.83-4.51); Lymphocyte % 5.4 % (19-41); Mean Corpuscular Volume 90.6 fL (80-94); Mean Platelet Vol. 9.9 fl (6.2-12.0); Monocyte% 4.7 % (0-10); NRBC Flagged by Analyzer 0 % (0-5); Neutrophil % 89.4 % (47-70); POSITIVE DIFFERENTIAL YES; Platelet Count 171 K/mm3 (150-450); RBC Distribution Width CV 14.6 % (11.6-14.6); RBC Distribution Width SD 48.8 fl (35.1-43.9); Red Blood Count 3.73 M/mm3 (4.6-6.2); White Blood Count 8.5 K/mm3 (4.4-11.0)
[2021-03-09 07:42] LABS: Differential Indicated SCAN CRITERIA MET
[2021-03-09 07:53] LABS: Anion Gap 3 (5-15); BUN 26 mg/dL (7-18); BUN/Creat Ratio 34.2 RATIO (10-20); Chloride 118 mmol/L (98-107); Creatinine, Serum 0.76 mg/dL (0.70-1.30); EST Glomerular Filtration Rate 108 mL/min (>60); Est Glom Filt Rate - Afr Amer 131 mL/min (>60); Estimated Creatinine Clearance 76.52 ml/min; Glucose 79 mg/dL (74-106); Phosphorus 1.9 mg/dL (2.5-4.9); Potassium 3.7 mmol/L (3.5-5.1); Sodium Level 147 mmol/L (136-145)
[2021-03-09] MEDS: busPIRone 15 MG TABLET PO ×2 (08:59→20:27)
[2021-03-09] MEDS: Citalopram 10 MG Tablet PO (08:59)
[2021-03-09 09:05] LABS: Differential Comment SCANNED
[2021-03-09] MEDS: Famotidine 200 MG/20 ML MDV 20 MG in 0.9% Normal Saline (Pres. free 8 ML 300 MG IV ×2 (09:05→20:27)
--- NOTE | 2021-03-09 09:50 | PN.HOSP_ITS ---
Subjective Subjective Mentation appears to be better overall however the patient states that he still cannot believe in the hospital and think that this is somewhat of a conspiracy. I discussed with him extensively that he had abdominal surgery why he had abdominal surgery and what was done. He is still in disbelief. He is oriented to year and president [facility] in addition to himself and his birthdate. He does not seem to remember much of yesterday at all. No acute issues overnight. Sitter at bedside. Patient is asking for water to drink. Objective Data Objective Data Vital Signs: Vital Signs Temp Pulse Resp BP Pulse Ox 98.6 F 55 L 16 148/86 H 97 03/09/21 08:55 03/09/21 08:55 03/09/21 08:55 03/09/21 08:55 03/09/21 08:55 Oxygen Flow Rate (L/min) 2 Oxygen Delivery Method Room Air Weight: 104.553 kg Body Mass Index (BMI) 31.2 Intake & Output: Intake and Output for Last 24 Hours 03/07/21 03/08/21 03/09/21 23:59 23:59 23:59 Intake Total 3156.67 / 3156.67 3229.4233 / 3239.4233 1022.5 / 1022.5 Output Total 1510 / 1620 965 / 1365 840 / 840 Balance 1646.67 / 1536.67 2264.4233 / 1874.4233 182.5 / 182.5 Lab / Micro Data Result Diagrams: 03/09/21 06:04 03/09/21 06:04 Labs: Laboratory Results - last 24 hr 03/08/21 13:22: WBC 14.2 H, RBC 4.01 L, Hgb 11.8 L, Hct 36.0 L, MCV 89.8, MCH 29.4, MCHC 32.8, RDW Std Deviation 48.9 H, RDW Coeff of An 14.7 H, Plt Count 184, MPV 9.1, Immature Gran % (Auto) 0.600, Neut % (Auto) 95.0 H, Lymph % (Auto) 2.3 L, [place] % (Auto) 2.0, Eos % (Auto) 0.0, Baso % (Auto) 0.1, Absolute Neuts (auto) 13.5 H, Absolute Lymphs (auto) 0.33 L, Nucleated RBC % 0, Differential Comment SCANNED 03/08/21 13:22: Sodium 147 H, Potassium 3.4 L, Chloride 118 H, Carbon Dioxide 24.0, Anion Gap 5, BUN 25 H, Creatinine 0.73, Estim Creat Clear Calc 76.52, Est GFR (MDRD) Af Amer 136, Est GFR (MDRD) Non-Af 113, BUN/Creatinine Ratio 34.2 H, Glucose 93, Calcium 8.2 L, Phosphorus 0.8 L*, Magnesium 2.4, Total Bilirubin 0.70, AST 25, ALT 19, Alkaline Phosphatase 81, Total Protein 6.0 L, Albumin 2.2 L, Globulin 3.8, Albumin/Globulin Ratio 0.6 L 03/08/21 13:22: Ammonia 16.0 03/09/21 06:04: WBC 8.5, RBC 3.73 L, Hgb 10.8 L, Hct 33.8 L, MCV 90.6, MCH 29.0, MCHC 32.0, RDW Std Deviation 48.8 H, RDW Coeff of An 14.6, Plt Count 171, MPV 9.9, Immature Gran % (Auto) 0.400, Neut % (Auto) 89.4 H, Lymph % (Auto) 5.4 L, [place] % (Auto) 4.7, Eos % (Auto) 0.0, Baso % (Auto) 0.1, Absolute Neuts (auto) 7.6, Absolute Lymphs (auto) 0.46 L, Nucleated RBC % 0, Differential Comment SCANNED 03/09/21 06:04: Sodium 147 H, Potassium 3.7, Chloride 118 H, Carbon Dioxide 26.0, Anion Gap 3 L, BUN 26 H, Creatinine 0.76, Estim Creat Clear Calc 76.52, Est GFR (MDRD) Af Amer 131, Est GFR (MDRD) Non-Af 108, BUN/Creatinine Ratio 34.2 H, Glucose 79, Calcium 8.0 L, Phosphorus 1.9 L Micro: Microbiology 03/05/21 20:38 Nasal Secretion SARS-CoV-2 Antigen (Rapid) - Final Radiography Diagnostic Testing: Radiology Impression Chest X-Ray 03/08/21 16:14 IMPRESSION: No acute cardiopulmonary disease. Nasogastric tube as described in a normal location. Electronically Signed: Victoria Mischiu, MD at 3:05 EST , Service support , Physical Exam Const alert and no apparent distress Constitutional Narrative: Obese older white male sitting up in a chair at the bedside reclining, sitter at bedside, patient appears comfortable and nontoxic, oriented to self, birthdate, month, date, and present [place] Orientation / Consciousness: confused Exam Limitations: other limitations Nutritional Appearance: overweight HEENT head/scalp atraumatic, moist oral mucous membranes and oropharynx normal HEENT Narrative: NG tube in right nares Head and Scalp: normocephalic Resp normal respiratory effort, no retractions, no use of accessory muscles and clear to auscultation bilaterally Auscultation: Negative for crackles, rales or rhonchi Cardio regular rate, regular rhythm, S1 normal heart sound, S2 normal heart sound, no murmurs, no rub, no gallops, no clicks and no JVD GI soft to palpation and non-distended GI Narrative: Hypoactive bowel sounds, midline incision with ABD covering site- no drainage on ABD Palpation: tender Extremity no clubbing, cyanosis or edema Peripheral Pulses: Yes pulses 2+ throughout Skin no rashes or lesions noted, no wounds, skin turgor normal, no jaundice, no petechiae and no mottling Neuro moves all extremities and no focal motor deficits Sensorium / Orientation: awake and alert Speech: speech normal Psych Psych Narrative: Less confusion today although seems somewhat paranoid Assessment & Plan Assessment/Plan (1) Perforated bowel: (2) Hypokalemia: (3) Hypophosphatemia: (4) Hypernatremia: (5) Hyperchloremia: (6) Acute anemia: (7) Toxic metabolic encephalopathy: PLAN: Assessment: Perforated bowel status post small bowel resection Peritonitis Metabolic/toxic encephalopathy Hypokalemia-resolved Hypophosphatemia Hypernatremia Hyperchloremia Acute normocytic postoperative anemia Anxiety Depression Insomnia Seasonal allergies Plan: -Repeat potassium phosphate bolus as Phos has improved but still low -Recheck a.m. BMP and phosphorus level -Change IV fluids from half-normal saline at 70 an hour to D5W at 70 an hour due to persistent hypernatremia and hyperchloremia -Continue incentive spirometer -Continue IV antibiotics -Ammonia level is normal -Continue IV opiate and Toradol for pain but watch renal function closely -I do suspect his encephalopathy is related to immediate postoperative state, infection, and medications -Restart home medications including BuSpar, Celexa -Continue as needed Haldol Charges/Coding Visit Charges Inpatient E&M: 98972 Subs Hosp L2
--- NOTE | 2021-03-09 10:07 | PCM.PN.SRG ---
Subjective Subjective patient appears more cooperative this morning I have given family and patient multiple repeated explanations of his medications and have always asked if they had any questions at the end of the conversation and the conversation would end when they had no further questions however, they ask the same questions every day I have also explained to patient LORI, Adela Older Patient seems to be tolerating incisional pain better he states that he passed a small amount of flatus Objective Data Objective Data Vital Signs: Vital Signs Temp Pulse Resp BP Pulse Ox 98.6 F 55 L 16 148/86 H 97 03/09/21 08:55 03/09/21 08:55 03/09/21 08:55 03/09/21 08:55 03/09/21 08:55 Oxygen Flow Rate (L/min) 2 Oxygen Delivery Method Room Air Weight: 104.553 kg Body Mass Index (BMI) 31.2 Intake & Output: Intake and Output for Last 24 Hours 03/07/21 03/08/21 03/09/21 23:59 23:59 23:59 Intake Total 3156.67 / 3156.67 3229.4233 / 3239.4233 1022.5 / 1022.5 Output Total 1510 / 1620 965 / 1365 840 / 840 Balance 1646.67 / 1536.67 2264.4233 / 1874.4233 182.5 / 182.5 Lab / Micro Data Result Diagrams: 03/09/21 06:04 03/09/21 06:04 Labs: Laboratory Results - last 24 hr 03/08/21 13:22: WBC 14.2 H, RBC 4.01 L, Hgb 11.8 L, Hct 36.0 L, MCV 89.8, MCH 29.4, MCHC 32.8, RDW Std Deviation 48.9 H, RDW Coeff of An 14.7 H, Plt Count 184, MPV 9.1, Immature Gran % (Auto) 0.600, Neut % (Auto) 95.0 H, Lymph % (Auto) 2.3 L, [place] % (Auto) 2.0, Eos % (Auto) 0.0, Baso % (Auto) 0.1, Absolute Neuts (auto) 13.5 H, Absolute Lymphs (auto) 0.33 L, Nucleated RBC % 0, Differential Comment SCANNED 03/08/21 13:22: Sodium 147 H, Potassium 3.4 L, Chloride 118 H, Carbon Dioxide 24.0, Anion Gap 5, BUN 25 H, Creatinine 0.73, Estim Creat Clear Calc 76.52, Est GFR (MDRD) Af Amer 136, Est GFR (MDRD) Non-Af 113, BUN/Creatinine Ratio 34.2 H, Glucose 93, Calcium 8.2 L, Phosphorus 0.8 L*, Magnesium 2.4, Total Bilirubin 0.70, AST 25, ALT 19, Alkaline Phosphatase 81, Total Protein 6.0 L, Albumin 2.2 L, Globulin 3.8, Albumin/Globulin Ratio 0.6 L 03/08/21 13:22: Ammonia 16.0 03/09/21 06:04: WBC 8.5, RBC 3.73 L, Hgb 10.8 L, Hct 33.8 L, MCV 90.6, MCH 29.0, MCHC 32.0, RDW Std Deviation 48.8 H, RDW Coeff of An 14.6, Plt Count 171, MPV 9.9, Immature Gran % (Auto) 0.400, Neut % (Auto) 89.4 H, Lymph % (Auto) 5.4 L, [place] % (Auto) 4.7, Eos % (Auto) 0.0, Baso % (Auto) 0.1, Absolute Neuts (auto) 7.6, Absolute Lymphs (auto) 0.46 L, Nucleated RBC % 0, Differential Comment SCANNED 03/09/21 06:04: Sodium 147 H, Potassium 3.7, Chloride 118 H, Carbon Dioxide 26.0, Anion Gap 3 L, BUN 26 H, Creatinine 0.76, Estim Creat Clear Calc 76.52, Est GFR (MDRD) Af Amer 131, Est GFR (MDRD) Non-Af 108, BUN/Creatinine Ratio 34.2 H, Glucose 79, Calcium 8.0 L, Phosphorus 1.9 L Micro: Microbiology 03/05/21 20:38 Nasal Secretion SARS-CoV-2 Antigen (Rapid) - Final Radiography Diagnostic Testing: Radiology Impression Chest X-Ray 03/08/21 16:14 IMPRESSION: No acute cardiopulmonary disease. Nasogastric tube as described in a normal location. Electronically Signed: Victoria Tan MD at 3:05 EST , Service support , Physical Exam Const alert Constitutional Narrative: better oriented today, more cooperative Resp normal respiratory effort GI GI Narrative: abdomen is soft, incisional tenderness, incision is clean/dry/intact YENY output is serosanguinous, more serous Extremity no clubbing, cyanosis or edema Assessment & Plan Assessment/Plan (1) Perforated bowel: PLAN: POD# 3.5 from exploratory laparotomy, small bowel resection Plan: continue present therapy maintain NG tube until good bowel function - as the NG tube was very difficult to place patient seems better oriented today, though still difficult, seemingly inpatient to recover and I have explained that given peritonitis and perforation, this will take time and patience on the patient's and family's part
[2021-03-09] MEDS: Zolpidem Tartrate 5 MG Tablet PO (20:17)
[2021-03-10 02:25] VITALS: BP 155/88; PULSE 69; RESP 16; TEMP 36.5; O2SAT 96
[2021-03-10] MEDS: 0.9% Saline Lock 10 ML Syringe IV ×2 (05:03→22:27)
[2021-03-10] MEDS: Ketorolac 30 MG/ML Syringe 15 MG IV ×3 (05:04→22:26)
[2021-03-10 07:19] LABS: Anion Gap 7 (5-15); BUN 20 mg/dL (7-18); BUN/Creat Ratio 27.7 RATIO (10-20); Calcium,Total 8.3 mg/dL (8.5-10.1); Chloride 114 mmol/L (98-107); Creatinine, Serum 0.72 mg/dL (0.70-1.30); EST Glomerular Filtration Rate 115 mL/min (>60); Est Glom Filt Rate - Afr Amer 139 mL/min (>60); Estimated Creatinine Clearance 76.52 ml/min; Glucose 90 mg/dL (74-106); Phosphorus 1.2 mg/dL (2.5-4.9); Potassium 3.6 mmol/L (3.5-5.1); Sodium Level 146 mmol/L (136-145)
[2021-03-10 07:40] VITALS: BP 165/84; PULSE 67; RESP 16; TEMP 36.8; O2SAT 97
--- NOTE | 2021-03-10 08:10 | PCM.PN.SRG ---
Subjective Subjective patient seems to have 'turned the corner' this morning, he is alot more alert than I have noted postoperatively and better communicative and cooperative than yesterday and day before He states that he has passed flatus and a small bowel movement - he is worried about constipation - I cannot give him anything po, but he can have a suppository he has ambulated in hallways not complaining of much pain today Objective Data Objective Data Vital Signs: Vital Signs Temp Pulse Resp BP Pulse Ox 97.7 F L 69 16 155/88 H 96 03/10/21 02:25 03/10/21 02:25 03/10/21 02:25 03/10/21 02:25 03/10/21 02:25 Oxygen Flow Rate (L/min) 2 Oxygen Delivery Method Room Air Weight: 104.553 kg Body Mass Index (BMI) 31.2 Intake & Output: Intake and Output for Last 24 Hours 03/08/21 03/09/21 03/10/21 23:59 23:59 23:59 Intake Total 3229.4233 / 3239.4233 2327.0833 / 2327.0833 1160 / 1160 Output Total 965 / 1365 1535 / 1535 390 / 390 Balance 2264.4233 / 1874.4233 792.0833 / 792.0833 770 / 770 Lab / Micro Data Result Diagrams: 03/09/21 06:04 03/10/21 06:08 Labs: Laboratory Results - last 24 hr 03/09/21 06:04: Differential Comment SCANNED 03/10/21 06:08: Sodium 146 H, Potassium 3.6, Chloride 114 H, Carbon Dioxide 25.0, Anion Gap 7, BUN 20 H, Creatinine 0.72, Estim Creat Clear Calc 76.52, Est GFR (MDRD) Af Amer 139, Est GFR (MDRD) Non-Af 115, BUN/Creatinine Ratio 27.7 H, Glucose 90, Calcium 8.3 L, Phosphorus 1.2 L Micro: Microbiology 03/05/21 20:38 Nasal Secretion SARS-CoV-2 Antigen (Rapid) - Final Physical Exam Const alert General Appearance: cooperative Neck supple Resp normal respiratory effort Effort and Inspection: able to speak in complete sentences GI GI Narrative: abdomen is soft and benign incision with seepage - suspect will need to remove a few danna YENY output is serous Assessment & Plan Assessment/Plan (1) Perforated bowel: PLAN: POD# 4.5 from small bowel resection for perforated small bowel from food impaction/bezoar Plan: clamp NG tube start clear liquid diet - if tolerates, I will return in the afternoon to check on patient and may consider d/c NG tube wound appears to be seeping - I will also check on wound this afternoon - he is at high risk for wound infection given that he had peritonitis The YENY output is more serous and not cloudy - continue IV antibiotics and encourage ambulation start oral pain medications
[2021-03-10 08:27] VITALS: O2SAT 98
[2021-03-10] MEDS: Citalopram 10 MG Tablet PO (09:32)
[2021-03-10] MEDS: busPIRone 15 MG TABLET PO ×2 (09:32→22:26)
[2021-03-10] MEDS: Famotidine 200 MG/20 ML MDV 20 MG in 0.9% Normal Saline (Pres. free 8 ML 300 MG IV ×2 (09:33→22:25)
[2021-03-10 11:20] VITALS: BP 161/88; PULSE 69; RESP 16; TEMP 36.7; O2SAT 98
[2021-03-10] MEDS: Acetaminophen 325 MG Tablet 650 MG PO (12:22)
--- NOTE | 2021-03-10 13:40 | PCM.PN.HOSP ---
Subjective Subjective Patient is alert and oriented x3 and sitting up in a chair. His mentation is much better. Sitter remains at bedside but will likely be able to be discontinued today. Patient still has no recollection of his acute events but much less paranoia. Objective Data Objective Data Vital Signs: Vital Signs Temp Pulse Resp BP Pulse Ox 98.0 F 69 16 161/88 H 98 03/10/21 11:20 03/10/21 11:20 03/10/21 11:20 03/10/21 11:20 03/10/21 11:20 Oxygen Flow Rate (L/min) 2 Oxygen Delivery Method Room Air Weight: 104.553 kg Body Mass Index (BMI) 31.2 Intake & Output: Intake and Output for Last 24 Hours 03/08/21 03/09/21 03/10/21 23:59 23:59 23:59 Intake Total 3229.4233 / 3239.4233 2327.0833 / 2327.0833 1460 / 1460 Output Total 965 / 1365 1535 / 1535 665 / 665 Balance 2264.4233 / 1874.4233 792.0833 / 792.0833 795 / 795 Lab / Micro Data Result Diagrams: 03/09/21 06:04 03/10/21 06:08 Labs: Laboratory Results - last 24 hr 03/10/21 06:08: Sodium 146 H, Potassium 3.6, Chloride 114 H, Carbon Dioxide 25.0, Anion Gap 7, BUN 20 H, Creatinine 0.72, Estim Creat Clear Calc 76.52, Est GFR (MDRD) Af Amer 139, Est GFR (MDRD) Non-Af 115, BUN/Creatinine Ratio 27.7 H, Glucose 90, Calcium 8.3 L, Phosphorus 1.2 L Micro: Microbiology 03/08/21 12:50 Urine, Clean Catch Urine Culture - Preliminary Culture exhibits no growth. 03/05/21 20:38 Nasal Secretion SARS-CoV-2 Antigen (Rapid) - Final Physical Exam Const alert, oriented x3 and no apparent distress Constitutional Narrative: Obese older white male sitting up in a chair at the bedside reclining, sitter at bedside, patient appears comfortable and nontoxic Orientation / Consciousness: confused Exam Limitations: no limitations Nutritional Appearance: overweight HEENT head/scalp atraumatic, moist oral mucous membranes and oropharynx normal Head and Scalp: normocephalic Resp normal respiratory effort, no retractions, no use of accessory muscles and clear to auscultation bilaterally Auscultation: Negative for crackles, rales or rhonchi Cardio regular rate, regular rhythm, S1 normal heart sound, S2 normal heart sound, no murmurs, no rub, no gallops, no clicks and no JVD GI soft to palpation and non-distended GI Narrative: Improved bowel sounds, mild tender Palpation: tender Extremity no clubbing, cyanosis or edema Peripheral Pulses: Yes pulses 2+ throughout Neuro oriented x3, moves all extremities and no focal motor deficits Sensorium / Orientation: awake and alert Speech: speech normal Assessment & Plan Assessment/Plan (1) Perforated bowel: (2) Hypokalemia: (3) Hypophosphatemia: (4) Hypernatremia: (5) Hyperchloremia: (6) Acute anemia: (7) Toxic metabolic encephalopathy: PLAN: Assessment: Perforated bowel status post small bowel resection Peritonitis Metabolic/toxic encephalopathy-resolved Hypokalemia-resolved Hypophosphatemia Hypernatremia Hyperchloremia Acute normocytic postoperative anemia Anxiety Depression Insomnia Seasonal allergies Plan: -Repeat potassium phosphate bolus again today as Phos remains low -Recheck a.m. BMP and phosphorus level -Continue D5W at 70 an hour due to persistent hypernatremia and hyperchloremia although this has improved -Continue incentive spirometer -Continue IV antibiotics -Continue IV opiate and Toradol for pain but watch renal function closely -Cephalopathy appears to have resolved and mental status appears close to baseline -Continue Brenda Smith Charges/Coding Visit Charges Inpatient E&M: 26291 Subs Hosp L2
[2021-03-10 20:15] VITALS: BP 134/68; PULSE 71; RESP 16; TEMP 37; O2SAT 97
[2021-03-10] MEDS: Zolpidem Tartrate 5 MG Tablet PO (22:27)
[2021-03-11 03:17] VITALS: BP 139/73; PULSE 67; RESP 16; TEMP 37.2; O2SAT 94
[2021-03-11] MEDS: Acetaminophen 325 MG Tablet 650 MG PO ×2 (03:21→09:19)
[2021-03-11 05:38] LABS: Absolute Lymphocyte Count 0.53 X10^3/uL (0.83-4.51); Absolute Neutrophil Count 5.2 X10^3/uL (2.0-7.7); Basophil# 0.02 X10^3/uL; Basophil% 0.3 % (0-1); Eosinophil# 0.01 X10^3/uL; Eosinophils% 0.2 % (0-5); Hematocrit 32.2 % (40-54); Hemoglobin 10.9 g/dL (13.0-16.5); Lymphocyte # 0.53 X10^3/ul (0.83-4.51); Lymphocyte % 8.5 % (19-41); Mean Corp Hgb Conc 33.9 g/dL (32-36); Mean Corpuscular Hgb 28.9 pg (27.0-32.0); Mean Corpuscular Volume 85.4 fL (80-94); Mean Platelet Vol. 9.4 fl (6.2-12.0); Monocyte% 6.5 % (0-10); NRBC Flagged by Analyzer 0 % (0-5); Neutrophil # 5.18 X10^3/uL (2.7-7.7); Neutrophil % 83.5 % (47-70); POSITIVE DIFFERENTIAL YES; Platelet Count 184 K/mm3 (150-450); RBC Distribution Width CV 14.4 % (11.6-14.6); RBC Distribution Width SD 44.7 fl (35.1-43.9); Red Blood Count 3.77 M/mm3 (4.6-6.2); White Blood Count 6.2 K/mm3 (4.4-11.0)
[2021-03-11 05:41] LABS: Differential Indicated SCAN CRITERIA MET
[2021-03-11] MEDS: 0.9% Saline Lock 10 ML Syringe IV (05:44)
[2021-03-11] MEDS: Ketorolac 30 MG/ML Syringe 15 MG IV (05:44)
[2021-03-11 06:11] LABS: Differential Comment SCANNED
[2021-03-11 06:17] LABS: Anion Gap 7 (5-15); BUN 9 mg/dL (7-18); BUN/Creat Ratio 15.4 RATIO (10-20); Calcium,Total 7.7 mg/dL (8.5-10.1); Chloride 109 mmol/L (98-107); Creatinine, Serum 0.59 mg/dL (0.70-1.30); EST Glomerular Filtration Rate 146 mL/min (>60); Est Glom Filt Rate - Afr Amer 176 mL/min (>60); Estimated Creatinine Clearance 76.52 ml/min; Glucose 107 mg/dL (74-106); Phosphorus 2.6 mg/dL (2.5-4.9); Sodium Level 141 mmol/L (136-145)
[2021-03-11 06:56] VITALS: O2SAT 94
--- NOTE | 2021-03-11 09:00 | PCM.PN.SRG ---
Subjective Subjective patient looks great this morning, tolerating diet, has had bowel movements and flatus will order regular diet for lunch, if he tolerates, can be discharged to [facility] Objective Data Objective Data Vital Signs: Vital Signs Temp Pulse Resp BP Pulse Ox 98.9 F 67 16 139/73 H 94 03/11/21 03:17 03/11/21 03:17 03/11/21 03:17 03/11/21 03:17 03/11/21 06:56 Oxygen Flow Rate (L/min) 2 Oxygen Delivery Method Room Air Weight: 104.553 kg Body Mass Index (BMI) 31.2 Intake & Output: Intake and Output for Last 24 Hours 03/09/21 03/10/21 03/11/21 23:59 23:59 23:59 Intake Total 2327.0833 / 2327.0833 3273.3333 / 3273.3333 50 / 50 Output Total 1535 / 1535 685 / 685 140 / 140 Balance 792.0833 / 792.0833 2588.3333 / 2588.3333 -90 / -90 Lab / Micro Data Result Diagrams: 03/11/21 05:20 03/11/21 05:20 Labs: Laboratory Results - last 24 hr 03/11/21 05:20: WBC 6.2, RBC 3.77 L, Hgb 10.9 L, Hct 32.2 L, MCV 85.4 D, MCH 28.9, MCHC 33.9 D, RDW Std Deviation 44.7 H, RDW Coeff of An 14.4, Plt Count 184, MPV 9.4, Immature Gran % (Auto) 1.000 H, Neut % (Auto) 83.5 H, Lymph % (Auto) 8.5 L, Bertie % (Auto) 6.5, Eos % (Auto) 0.2, Baso % (Auto) 0.3, Absolute Neuts (auto) 5.2, Absolute Lymphs (auto) 0.53 L, Nucleated RBC % 0, Differential Comment SCANNED 03/11/21 05:20: Sodium 141, Potassium 3.0 L, Chloride 109 H, Carbon Dioxide 25.0, Anion Gap 7, BUN 9, Creatinine 0.59 L, Estim Creat Clear Calc 76.52, Est GFR (MDRD) Af Amer 176, Est GFR (MDRD) Non-Af 146, BUN/Creatinine Ratio 15.4, Glucose 107 H, Calcium 7.7 L, Phosphorus 2.6 Micro: Microbiology 03/08/21 12:50 Urine, Clean Catch Urine Culture - Preliminary Culture exhibits no growth. 03/05/21 20:38 Nasal Secretion SARS-CoV-2 Antigen (Rapid) - Final Physical Exam Const alert and oriented x3 General Appearance: cooperative Neck supple Resp normal respiratory effort Effort and Inspection: able to speak in complete sentences GI GI Narrative: abdomen - soft and benign wound with two areas of drainage - opened and packed with gauze YENY drainage is serous and clear Assessment & Plan Assessment/Plan (1) Perforated bowel: PLAN: POD#5.5 s/p small bowel resection for perforated small bowel due to food impaction/bezoar Plan: advance to regular diet if tolerates, discharge to home, follow up in clinic for wound check.
[2021-03-11 09:10] VITALS: O2SAT 97
[2021-03-11] MEDS: busPIRone 15 MG TABLET PO (09:19)
[2021-03-11] MEDS: Citalopram 10 MG Tablet PO (09:20)
[2021-03-11] MEDS: Potassium Chloride Oral Tablet 20 MEQ 60 MEQ PO (09:24)
[2021-03-11 09:36] VITALS: BP 156/92; PULSE 66; RESP 18; TEMP 36.6; O2SAT 98
[2021-03-11] MEDS: Famotidine 200 MG/20 ML MDV 20 MG in 0.9% Normal Saline (Pres. free 8 ML 300 MG IV (09:57)
--- NOTE | 2021-03-11 10:04 | DS.PCM_ITS ---
Discharge Summary Date of Admission: 03/05/21 Date of Discharge: 03/11/21 Summary: 70 y/o WM presented with acute rigid abdomen. Taken to surgery in middle of night for exploratory laparotomy. Found to have obstructing food impaction and proximal perforation of small bowel with generalized peritonitis. NG placement with difficulty intraoperatively. Intraabdominal drain placed. Postoperatively, patient physically recovering well, but had mental status changes due to toxic metabolic changes. Internal Medicine consulted with help in management. Resumption of his preoperative anti-depressant medications, appeared to make a great improvement. Patient d/c'd on POD# 5.5, tolerating regular diet, normal bowel function. Has wound infection due to peritonitis, wound opened and packed with gauze, will follow up as an outpatient for this Meaningful Use Info Meaningful Use Diagnoses (Choose all that apply): None applicable Discharge Plan Admission Admit Date/Time: 03/05/21 21:16 Attending Provider: Dori Jaquez Primary Care Provider: Leonel Peralta Consulting Providers: Paola Ny Instructions Additional Instructions / Restrictions: Recommended pain control regimen - May take 600 mg ibuprofen (Motrin) and then in 3-4 hours, may take 650 mg acetaminophen (Tylenol), then in 3-4 hours may take 600 mg ibuprofen, then in 3- 4 hours may take 650 mg acetaminophen and so on for 2-3 days May take narcotic pain medication for pain that is not controlled by above and at night for comfort through the night Leave dressings in place Do not shower, sponge bathe only until drain can be removed Do not soak - no tub baths/swimming No lifting/pushing/pulling greater than 20 pounds for two months. Regular diet as tolerated, drink plenty of fluids. Avoid carbonated beverages for a few days as this will cause abdominal bloating and thus discomfort after our surgery. Follow up in my office on March 14 at 2pm Office number is If any questions, please call my office at and ask the chucking machine set up operator for the general surgery nurses desk Discharge Orders/Prescriptions Prescriptions: New hydrocodone-acetaminophen 5-325 mg tablet 1 tab PO Q8H 5 Days Qty: 15 RF: 0 No Action cyclobenzaprine 10 mg tablet 10 mg PO QHS PRN (Reason: Muscle Spasm) RF: 0 citalopram 20 mg tablet 10 mg PO DAILY RF: 0 lorazepam 0.5 mg tablet 0.5 mg PO DAILY PRN (Reason: Anxiety) RF: 0 Loratadine-D 5-120 mg tablet extended release 12 hr 5 - 120 tab PO DAILY PRN (Reason: Allergies) RF: 0 zolpidem 10 mg tablet 10 mg PO QHS PRN (Reason: Insomnia) RF: 0 buspirone 15 mg tablet 15 mg PO BID RF: 0 Referrals / Follow Up: Leonel Peralta MD [Primary Care Provider] -
[2021-03-11] MEDS: HYDROcodone Bitartrate/Apap 5/325 Tablet PO (10:44)
--- NOTE | 2021-03-11 12:47 | PCM.PN.HOSP ---
Subjective Subjective Patient reports he is feeling well. Diet was advanced and he tells me that if he does well he will be able to go home later today. He is pleased. Mentation appears back to baseline. is at bedside and is pleased with progress. Objective Data Objective Data Vital Signs: Vital Signs Temp Pulse Resp BP Pulse Ox 97.8 F 66 18 156/92 H 98 03/11/21 09:36 03/11/21 09:36 03/11/21 09:36 03/11/21 09:36 03/11/21 09:36 Oxygen Flow Rate (L/min) 2 Oxygen Delivery Method Room Air Weight: 104.553 kg Body Mass Index (BMI) 31.2 Intake & Output: Intake and Output for Last 24 Hours 03/09/21 03/10/21 03/11/21 23:59 23:59 23:59 Intake Total 2327.0833 / 2327.0833 3273.3333 / 3273.3333 110 / 110 Output Total 1535 / 1535 685 / 685 170 / 170 Balance 792.0833 / 792.0833 2588.3333 / 2588.3333 -60 / -60 Lab / Micro Data Result Diagrams: 03/11/21 05:20 03/11/21 05:20 Labs: Laboratory Results - last 24 hr 03/11/21 05:20: WBC 6.2, RBC 3.77 L, Hgb 10.9 L, Hct 32.2 L, MCV 85.4 D, MCH 28.9, MCHC 33.9 D, RDW Std Deviation 44.7 H, RDW Coeff of An 14.4, Plt Count 184, MPV 9.4, Immature Gran % (Auto) 1.000 H, Neut % (Auto) 83.5 H, Lymph % (Auto) 8.5 L, [place] % (Auto) 6.5, Eos % (Auto) 0.2, Baso % (Auto) 0.3, Absolute Neuts (auto) 5.2, Absolute Lymphs (auto) 0.53 L, Nucleated RBC % 0, Differential Comment SCANNED 03/11/21 05:20: Sodium 141, Potassium 3.0 L, Chloride 109 H, Carbon Dioxide 25.0, Anion Gap 7, BUN 9, Creatinine 0.59 L, Estim Creat Clear Calc 76.52, Est GFR (MDRD) Af Amer 176, Est GFR (MDRD) Non-Af 146, BUN/Creatinine Ratio 15.4, Glucose 107 H, Calcium 7.7 L, Phosphorus 2.6 Micro: Microbiology 03/08/21 12:50 Urine, Clean Catch Urine Culture - Final Culture exhibits no growth. 03/05/21 20:38 Nasal Secretion SARS-CoV-2 Antigen (Rapid) - Final Physical Exam Const alert, oriented x3 and no apparent distress Constitutional Narrative: Obese older white male sitting up in a chair at the bedside, is at bedside, patient appears well and nontoxic Orientation / Consciousness: confused Exam Limitations: no limitations Nutritional Appearance: overweight HEENT head/scalp atraumatic, moist oral mucous membranes and oropharynx normal HEENT Narrative: NG tube has been removed Head and Scalp: normocephalic Eyes Eyes Narrative: No scleral icterus Resp normal respiratory effort, no retractions, no use of accessory muscles and clear to auscultation bilaterally Auscultation: Negative for crackles, rales or rhonchi Cardio regular rate, regular rhythm, S1 normal heart sound, S2 normal heart sound, no murmurs, no rub, no gallops, no clicks and no JVD GI normal to inspection, nondistended, normoactive bowel sounds, soft to palpation and non-distended GI Narrative: Mild tenderness at the area of the incision Palpation: tender Extremity normal to inspection and no clubbing, cyanosis or edema Peripheral Pulses: Yes pulses 2+ throughout Neuro oriented x3, moves all extremities and no focal motor deficits Sensorium / Orientation: awake and alert Speech: speech normal Assessment & Plan Assessment/Plan (1) Perforated bowel: (2) Hypokalemia: (3) Hyperchloremia: (4) Acute anemia: (5) Toxic metabolic encephalopathy: PLAN: Assessment: Perforated bowel status post small bowel resection Peritonitis Metabolic/toxic encephalopathy-resolved Hypokalemia-resolved Hypophosphatemia Hypernatremia Hyperchloremia Acute normocytic postoperative anemia Anxiety Depression Insomnia Seasonal allergies Plan: -Phos is normalized -Potassium is low again today -60 mEq p.o. potassium -Discontinue IV fluids -Antibiotics per general surgery -Continue incentive spirometer -Continue BuSpar, Celexa -Okay to discharge home from medical standpoint Charges/Coding Visit Charges Inpatient E&M: 26819 Subs Hosp L2
[2021-03-11 14:37] VITALS: BP 147/90; PULSE 68; RESP 16; TEMP 36.7; O2SAT 98
--- NOTE | 2021-03-11 14:38 | NURSING ---
Pt taken to car via wheelchair per volunteer.
== END 2021-03-11 14:38 | disposition home or self-care (01) | DRG 329 ==
LOC: ED 21:03 → MS3 21:32
PROVIDERS: Internal Medicine; Admitting Provider Surgery; Emergency Provider Emergency Medicine; PCP Family Medicine; Visit Provider Surgery
PROC: (CPT 44202; principal; 2021-03-05 21:45)
DX: T18.3XXA Foreign body in small intestine, initial encounter (principal); K63.1 Perforation of intestine (nontraumatic); K65.0 Generalized (acute) peritonitis; G92.8 Other toxic encephalopathy; K56.7 Ileus, unspecified; E87.0 Hyperosmolality and hypernatremia; E87.6 Hypokalemia; E83.39 Other disorders of phosphorus metabolism; E87.8 Other disorders of electrolyte and fluid balance, not elsewhere classified; X58.XXXA Exposure to other specified factors, initial encounter; Y93.9 Activity, unspecified; Y92.9 Unspecified place or not applicable; Y99.9 Unspecified external cause status; I10 Essential (primary) hypertension; E78.5 Hyperlipidemia, unspecified; Z20.822 Contact with and (suspected) exposure to COVID-19; F32.A Depression, unspecified; F41.9 Anxiety disorder, unspecified; Z79.899 Other long term (current) drug therapy
CPT/HCPCS: 36415; 71045; 74176; 80048; 80053; 80076; 81001; 82140; 83605; 83690; 83735; 84100; 85025; 87086; 87426; 88305; 93005; 97110; 97116; 97162; 97165; 97530; 97535; 99284; J7030; J7040; J7120; A4216; J2405; J3490

== ENCOUNTER 2021-07-16 07:00 | Outpatient (RCR) | payer MEDICARE, OTHER, SELFPAY ==
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
--- NOTE | 2021-07-16 07:22 | HP.PTREVAL ---
Kennedy Bower PA-C, It has been my pleasure to treat JHON STEPHENS II over the last 8 visits for hip OA, RC strain L, IVDD. Please see the progress note below for an update on the physical therapy plan of care! Subjective: Saw doctor for shoulder. Nothing needed. Got a new script for neck to continue as needed. Pain 0/10 at rest and in L UT 2/10 if he moves it wrong. Can roll over on shoulder without waking up. Takes flexeril before bed. Compression in LB is causing hip pain. Possible injections. Wants to continue with gym and home stretches on own and will resume adn try traction if he wosens again. Objective/Function: 55 B rotation c/s and 50 extension without much pain. Fulkl UE AROM with just some slight L UT tightness end range elevation and ext rotation. Palpation reveals nodule L UT is nearly gone. Doing well overall and I with appropriate ex. Plan Plan: Hold therapy for now in favor of I ex. Pt to contact me if situation worsens in next month for resume modalities, montior ex and possibly trial of traction, otherwise will continue with his ex I. D/C mid august if no therapy needed. Balance/Gait/Functional tests - Balance/Special Test Scores Oswestry Low Back Score: 6 Goals Goal 1:: sleep without waking due to pain Goal Time Frame: 6-8 Weeks Goal Progress: Goal Met Goal 2:: Full symmetrical cervical aROM and Lumbar ROM without pain Goal Time Frame: 6-8 Weeks Goal Progress: met neck, tight back. Goal 3:: Pt feel 75% better in overall pain and I management of condition with workout. Goal Time Frame: 6-8 Weeks Goal Progress: Goal Met Anticipated Interventions Patient/Client Instruction: Educate patient on: Condition, Plan of Care For the Purpose of:: To decrease pain, To increase ROM, To improve muscle performance and motor function, To improve performance and independence with ADL's Therapeutic Exercise to Include: Strength training, Postural training, Flexibilty training, Passive ROM, Active ROM For the Purpose of:: To decrease pain, To decrease swelling/inflammation, To increase ROM, To improve muscle performance and motor function Manual Therapy Techniques to Include: Mobilization, Manipulation, Passive ROM, Soft tissue mobilization For the Purpose of:: To decrease pain, To increase ROM Ultrasound (thermal/non thermal): Yes For the Purpose of:: To decrease swelling/inflammation, To increase ROM Please do not hesitate to contact me at [phone] by phone or if you have questions or concerns regarding this new plan of care! Sincerely, Tex Pike, DPT, OCS, CSCS
--- NOTE | 2021-09-16 18:36 | HP.PTDCSUM_ITS ---
It has been my pleasure to treat JHON STEPHENS II referred by Kennedy Bower PA-C, with the diagnosis of hip OA, RC strain L, IVDD for a total of 8 visit(s). Discharge Date: Please see the following information for a summary of their discharge status. Subjective: Saw doctor for shoulder. Nothing needed. Got a new script for neck to continue as needed. Pain 0/10 at rest and in L UT 2/10 if he moves it wrong. Can roll over on shoulder without waking up. Takes flexeril before bed. Compression in LB is causing hip pain. Possible injections. Wants to continue with gym and home stretches on own and will resume adn try traction if he wosens again. L UT Pain Intensity (Out of 10): Unrated % Improvement: 80 Objective/Function: 55 B rotation c/s and 50 extension without much pain. Fulkl UE AROM with just some slight L UT tightness end range elevation and ext rotatio n. Palpation reveals nodule L UT is nearly gone. Doing well overall and I with appropriate ex. Goal 1:: sleep without waking due to pain Goal Progress: Goal Met Goal 2:: Full symmetrical cervical aROM and Lumbar ROM without pain Goal Progress: met neck, tight back. Goal 3:: Pt feel 75% better in overall pain and I management of condition with workout. Goal Progress: Goal Met Plan: Hold therapy for now in favor of I ex. Pt to contact me if situation worsens in next month for resume modalities, montior ex and possibly trial of traction, otherwise will continue with his ex I. D/C mid august if no therapy needed. If there are questions or concerns regarding this patient's physical therapy, please feel free to call me at [phone]. Thank you for the referral of this patient. Sincerely, Tex Pike, DPT, OCS, CSCS Balance/Gait/Functional tests - Balance/Special Test Scores Oswestry Low Back Score: 6
== END 2021-07-16 19:00 | disposition home or self-care (01) ==
LOC: PT 07:00
PROVIDERS: PCP Family Medicine; Referring Provider Physician Assistant; Visit Provider Physician Assistant
DX: M48.02 Spinal stenosis, cervical region (principal); M47.22 Other spondylosis with radiculopathy, cervical region; M50.322 Other cervical disc degeneration at C5-C6 level
CPT/HCPCS: 97035; 97110; 97140; 97163

== ENCOUNTER → 2023-04-28 | Outpatient (CLI) | payer MEDICARE, OTHER, SELFPAY ==
--- OUTSIDE RECORDS SUMMARY | 2023-04-28 12:35 | XMS RPT_ITS | CCD ---
Author Name Unknown Address [address] [place] [address] Organization [facility] Care Team Providers Care Agile Developer Name Role Phone Chantal Wilson MD Primary Care Provider [phone] CHANTAL WILSON Primary Care Unavailable SANJIV DUMAS Attending Unavailable SANJIV DUMAS Admitting Unavailable Chantal Wilson MD Primary Care Provider [phone] CHANTAL WILSON Primary Care Unavailable CHANTAL WILSON Attending Unavailable CHANTAL WILSON Primary Care Unavailable CHANTAL WILSON Attending Unavailable CHANTAL WILSON Primary Care Unavailable CHANTAL WILSON Attending Unavailable CHANTAL WILSON Referring Unavailable CHANTAL WILSON Primary Care Unavailable CHANTAL WILSON Attending Unavailable CHANTAL WILSON Primary Care Unavailable CHANTAL WILSON Referring Unavailable CHANTAL WILSON Primary Care Unavailable CHANTAL WILSON Referring Unavailable CHANTAL WILSON Primary Care Unavailable MOSHE ZAMORA Attending Unavailable CHANTAL WILSON Primary Care Unavailable TIKI VINES Attending Unavailable CHANTAL WILSON Primary Care Unavailable CHANTAL WILSON Referring Unavailable SANJIV DUMAS Attending Unavailable CHANTAL WILSON Primary Care Unavailable CHANTAL WILSON Primary Care Unavailable CHANTAL WILSON Attending Unavailable CHANTAL WILSON Primary Care Unavailable Allergies Allergy Classification Reported Allergen(s) Allergy Type Date of Onset Reaction(s) Facility (20 sources) atorvastatin; Translations: [ATORVASTATIN CALCIUM] Drug Allergy 03-17-2005 Other: See Comments [facility] Work Phone: (20 sources) Clemastine; Translations: [CLEMASTINE] Drug Allergy 03-17-2005 Unknown [facility] Work Phone: Medications Current Medications Medication Drug Class(es) Dates Sig (Normalized) Sig (Original) cefadroxil 500 mg oral capsule (2 sources) Cephalosporin Antibacterial Start: 10-28-2022 End: 11-07-2022 take 1 capsule by mouth twice daily cefADROxil (DURICEF) 500 mg capsule Take 1 capsule by mouth twice daily for 10 days. 20 capsule 0 10/28/2022 11/07/2022 Active Completed/Discontinued Medications Medication Drug Class(es) Dates Sig (Normalized) Sig (Original) aspirin 81 mg oral tablet (20 sources) Platelet Aggregation Inhibitor, Nonsteroidal Anti-inflammatory Drug take 1 capsule by mouth once daily aspirin 81 mg cap Take 1 capsule by mouth once daily. 0 Active Problems Active Problems Problem Classification Problem Date Documented Da te Episodic/Chronic Anxiety disorders (20 sources) Generalized anxiety disorder; Translations: [Generalized anxiety disorder] Onset: 11-24-2020 11-24-2020 Chronic Disorders of lipid metabolism (20 sources) Mixed hyperlipidemia; Translations: [Mixed hyperlipidemia] Onset: 02-06-2015 02-06-2015 Chronic Diverticulosis and diverticulitis (20 sources) Diverticular disease; Translations: [Diverticulosis of intestine, part unspecified, without perforation or abscess without bleeding] Onset: 06-13-2014 06-13-2014 Chronic Hyperplasia of prostate (20 sources) Benign prostatic hyperplasia; Translations: [Benign prostatic hyperplasia without lower urinary tract symptoms] Onset: 02-06-2015 02-06-2015 Chronic Miscellaneous mental health disorders (20 sources) Primary insomnia; Translations: [Primary insomnia] Onset: 08-07-2015 Chronic Other gastrointestinal disorders (20 sources) Irritable bowel syndrome; Translations: [Irritable bowel syndrome without diarrhea] Onset: 02-06-2015 04-26-2020 Chronic Other male genital disorders (1 source) Male erectile dysfunction, unspecified; Translations: [ED (erectile dysfunction) of organic origin] Onset: 08-27-2022 Chronic Other nervous system disorders (20 sources) Arachnoid cyst; Translations: [Cerebral cysts] Onset: 06-16-2019 04-26-2020 Chronic Other nervous system disorders (20 sources) Bilateral carpal tunnel syndrome; Translations: [Carpal tunnel syndrome, bilateral upper limbs] Onset: 10-18-2019 10-18-2019 Chronic Other nutritional; endocrine; and metabolic disorders (20 sources) Simple obesity ; Translations: [Other obesity due to excess calories] Onset: 09-30-2016 04-20-2018 Chronic Other nutritional; endocrine; and metabolic disorders (15 sources) Obesity caused by energy imbalance; Translations: [Other obesity due to excess calories] Onset: 09-30-2016 04-20-2018 Chronic Other nutritional; endocrine; and metabolic disorders (13 sources) Obese class I; Translations: [Obesity, unspecified] Onset: 11-04-2022 11-04-2022 Chronic Other nutritional; endocrine; and metabolic disorders (1 source) Obesity, unspecified; Translations: [Obesity, Class I, BMI 30-34.9] Onset: 03-15-2023 Chronic Other upper respiratory disease (20 sources) Allergic rhinitis; Translations: [Allergic rhinitis, unspecified] Onset: 02-06-2015 02-06-2015 Chronic Residual codes; unclassified (1 source) History of hernia repair; Translations: [Other specified postprocedural states] 11-11-2022 Episodic Skin and subcutaneous tissue infections (8 sources) Cellulitis of left elbow; Translations: [Cellulitis of left upper limb] Episodic Past or Other Problems Problem Classification Problem Date Documented Da te Episodic/Chronic Abdominal hernia (5 sources) Incisional hernia; Translations: [Incisional hernia without obstruction or gangrene] Onset: 10-09-2022 10-09-2022 Episodic Administrative/social admission (20 sources) Advance directive discussed with patient; Translations: [Other specified counseling] Onset: 08-29-2021 08-29-2021 Episodic Diabetes mellitus without complication (20 sources) Hyperglycemia; Translations: [Hyperglycemia, unspecified] Onset: 08-29-2021 08-29-2021 Episodic Neoplasms of unspecified nature or uncertain behavior (15 sources) Neoplasm of uncertain behavior of skin of forearm; Translations: [Neoplasm of uncertain behavior of skin] Onset: 10-02-2022 Episodic Other aftercare (20 sources) Patient encounter status; Translations: [Other mcc (current) drug therapy] Onset: 03-04-2022 Episodic Other aftercare (1 source) Other extermination supervisor (current) drug therapy; Translations: [Medication management] Onset: 03-04-2022 Episodic Other circulatory disease (20 sources) Elevated blood-pressure reading without diagnosis of hypertension; Translations: [Elevated blood-pressure reading, without diagnosis of hypertension] Onset: 08-07-2015 08-07-2015 Episodic Other male genital disorders (20 sources) Disorder of prostate; Translations: [Disorder of prostate, unspecified] Onset: 09-30-2016 09-30-2016 Episodic Other male genital disorders (1 source) Disorder of prostate, unspecified; Translations: [Prostate disorder] Onset: 09-30-2016 Episodic Other non-epithelial cancer of skin (17 sources) Squamous cell carcinoma of skin; Translations: [Squamous cell carcinoma of skin, unspecified] Onset: 10-05-2022 10-05-2022 Episodic Residual codes; unclassified (20 sources) Active living will ; Translations: [Other specified health status] Onset: 08-29-2021 08-29-2021 Episodic Spondylosis; intervertebral disc disorders; other back problems (20 sources) Low back pain; Translations: [Lumbago] Onset: 03-18-2005 02-14-2016 Episodic Results Test Name Value Interpretation Reference Range Facil ity Vital Signs Date Time Vital Sign Value Performing Clinician Faci lity 03-15-2023 08:58-0500 Body weight 103.42 kg Chantal Wilson MD Work Phone: [facility] 03-15-2023 08:58-0500 Diastolic blood pressure 84 mm[Hg] Chantal Wilsno MD Work Phone: [facility] 03-15-2023 08:58-0500 Heart rate 82 /min Chantal Wilson MD Work Phone: [facility] 03-15-2023 08:58-0500 Respiratory rate 16 /min Chantal Wilson MD Work Phone: [facility] 03-15-2023 08:58-0500 Systolic blood pressure 132 mm[Hg] Chantal Wilson MD Work Phone: [facility] 11-11-2022 08:55-0400 Body temperature 98.01 [degF] Moshe Zamora PA-C Work Phone: [facility] 11-11-2022 08:55-0400 Body weight 100.25 kg Moshe Zamora PA-C Work Phone: [facility] 11-11-2022 08:55-0400 Diastolic blood pressure 80 mm[Hg] Moshe Greeley Hill PA-C Work Phone: [facility] 11-11-2022 08:55-0400 Heart rate 87 /min Moshe Sera PA-C Work Phone: [facility] 11-11-2022 08:55-0400 SaO2% (BldA) [Mass fraction] 97 % Moshe Greeley Hill PA-C Work Phone: [facility] 11-11-2022 08:55-0400 Systolic blood pressure 138 mm[Hg] Moshe Greeley Hill PA-C Work Phone: [facility] 10-28-2022 12:37-0400 Body temperature 97.81 [degF] Tiki Vines PA-C Work Phone: [facility] 10-28-2022 12:37-0400 Body weight 104.33 kg Tiki Vines PA-C Work Phone: [facility] 10-28-2022 12:37-0400 Diastolic blood pressure 80 mm[Hg] Tiki Vines PA-C Work Phone: [facility] 10-28-2022 12:37-0400 Heart rate 67 /min Tiki Vines PA-C Work Phone: [facility] 10-28-2022 12:37-0400 Respiratory rate 18 /min Tiki Vines PA-C Work Phone: [facility] 10-28-2022 12:37-0400 Systolic blood pressure 120 mm[Hg] Tiki Vines PA-C Work Phone: [facility] 09-30-2022 16:03-0400 Body temperature 98.01 [degF] Chantal Wilson MD Work Phone: [facility] 09-30-2022 16:03-0400 Body weight 102.97 kg Chantal Wilson MD Work Phone: [facility] 09-30-2022 16:03-0400 Diastolic blood pressure 86 mm[Hg] Chantal Wilson MD Work Phone: [facility] 09-30-2022 16:03-0400 Heart rate 80 /min Chantal Wilson MD Work Phone: [facility] 09-30-2022 16:03-0400 Respiratory rate 16 /min Chantal Wilson MD Work Phone: [facility] 09-30-2022 16:03-0400 Systolic blood pressure 142 mm[Hg] Chantal Wilson MD Work Phone: [facility] 03-04-2022 10:37-0500 Diastolic blood pressure 82 mm[Hg] Chantal Wilson MD Work Phone: [facility] 03-04-2022 10:37-0500 Systolic blood pressure 116 mm[Hg] Chantal Wilson MD Work Phone: [facility] 03-04-2022 10:24-0500 Body weight 102.06 kg Chantal Wilson MD Work Phone: [facility] 03-04-2022 10:24-0500 Heart rate 76 /min Chantal Wilson MD Work Phone: [facility] 03-04-2022 10:24-0500 Respiratory rate 16 /min Chantal Wilson MD Work Phone: [facility] Encounters Encounter Date Encounter Type Care Provider Facility Start: 03-15-2023 End: 03-16-2023 ambulatory Chantal Wilson MD Work Phone: [facility] Procedures Date Procedure Procedure Detail Performing Clinician Start: 03-03-2023 Lipid 1995 panel - S porsche or Plasma Tiki Vines PA-C Work Phone: Start: 01-27-2023 INFLUENZA VACCINE, P RSV FREE, AGE 65+ YR, HIGH DOSE, QUADRIVALENT (FLUZONE HIGH-DOSE) Deepak William MD Work Phone: Start: 08-27-2022 Lipid 1995 panel - S porsche or Plasma Gracie Ozuna APRN.BUSH REGENERATOR Work Phone: Start: 01-24-2022 INFLUENZA SEASONAL QUADRIVALENT HIGH DOSE AGE 65+ Donavan Richards DO Work Phone: Start: 08-29-2021 Adult depression scr eening assessment Chantal Wilson MD Work Phone: Start: 10-24-2020 Adult depression scr eening assessment Tiki Vines PA-C Work Phone: Start: 03-23-2016 Colonoscopy Tiki monge PA-C Work Phone: Plan of Treatment Date Care Activity Detail Author Start: 05-27-2029 Urine microalbumin profile [facility] Start: 03-03-2028 Lipid 1996 panel - Serum or Plasma Lipid Screening [facility] Start: 08-28-2027 Lipid 1996 panel - Serum or Plasma Lipid Screening [facility] Start: 08-28-2027 LIPID SCREEN LIPID SCREEN [facility] Start: 02-12-2027 LIPID SCREEN LIPID SCREEN [facility] Start: 05-27-2026 LIPID SCREEN LIPID SCREEN [facility] Start: 03-23-2026 Colonoscopy COLONOSCOPY [facility] Start: 03-23-2026 COLORECTAL CANCER SCREENING COLORECTAL CANCER SCREENING [facility] Start: 03-03-2026 Diabetes Screening Diabetes Screening [facility] Start: 08-27-2025 DIABETES SCREEN DIABETES SCREEN [facility] Start: 08-27-2025 Diabetes Screening Diabetes Screening [facility] Start: 02-12-2025 DIABETES SCREEN DIABETES SCREEN [facility] Start: 05-27-2024 DIABETES SCREEN DIABETES SCREEN [facility] Start: 09-03-2023 End: 12-03-2023 CBC W Auto Differential panel - Blood CBC + DIFF Lab Routine Generalized anxiety disorder Medication management Expected: 09/03/2023, Expires: 12/03/2023 [facility] Work Phone: Immunizations Immunization Date Immunization Notes Care Provider Fa ubaldo 03-15-2023 respiratory syncytia l virus (RSV) vaccine, adjuvanted (AREXVY) Chantal Wilson MD Work Phone: [facility] 01-27-2023 influenza (HD-IIV4) vaccine, age 65+ yr, high dose, quadrivalent, PF (FLUZONE HIGH-DOSE) Immunization Haseeb Work Phone: [facility] Work Phone: 01-24-2022 influenza, high-dose , quadrivalent vaccine (FLUZONE HIGH DOSE QUADRIVALENT) Immunization Haseeb Work Phone: [facility] 01-24-2022 influenza virus vaccine, unspecified formulation Gracie Ozuna APRN.CNP Work Phone: [facility] 01-11-2021 influenza, high-dose , quadrivalent vaccine (FLUZONE HIGH DOSE QUADRIVALENT) Tiki Vnies PA-C Work Phone: [facility] 12-09-2020 zoster vaccine recombinant Chantal Wilson MD Work Phone: [facility] 12-04-2020 influenza, seasonal, injectable, preservative free Chantal Wilson MD Work Phone: [facility] 09-17-2020 zoster vaccine recombinant Tiki Vines PA-C Work Phone: [facility] 07-03-2020 COVID-19 vaccine, fu ll dose (MODERNA) Tiki DOTSON-C Work Phone: [facility] 06-06-2020 COVID-19 vaccine, fu ll dose (MODERNA) Tiki DOTSON-C Work Phone: [facility] 05-27-2019 tetanus toxoid, redu ifrah diphtheria toxoid, and acellular pertussis vaccine, adsorbed Tiki DOTSON-C Work Phone: [facility] Work Phone: 04-20-2018 pneumococcal polysaccharide vaccine, 23 valent Tiki DOTSON-C Work Phone: [facility] 01-28-2018 influenza, high dose seasonal, preservative-free Tiki DOTSON-C Work Phone: [facility] Work Phone: 01-22-2017 influenza, high dose seasonal, preservative-free Tiki Vines PA-C Work Phone: [facility] 01-22-2017 pneumococcal conjuga te vaccine, 13 valent Tiki DOTSON-C Work Phone: [facility] 02-14-2016 tetanus toxoid, redu ifrah diphtheria toxoid, and acellular pertussis vaccine, adsorbed Tiki Vines PA-C Work Phone: [facility] Work Phone: 02-13-2014 influenza, seasonal, injectable Tiki Vines PA-C Work Phone: [facility] 02-07-2013 influenza virus vaccine, unspecified formulation Tiki Vines PA-C Work Phone: [facility] Work Phone: 01-28-2012 zoster vaccine, live Tiki Mohinder PA-C Work Phone: [facility] 03-13-2008 influenza virus vaccine, unspecified formulation Tiki Vines PA-C Work Phone: [facility] 03-18-2005 diphtheria and tetan us toxoids, adsorbed for pediatric use Tiki Vines PA-C Work Phone: [facility] Work Phone: Payers Date Payer Category Payer Medicare [id number] 2019 Unknown MMO MMO MEDICARE SUPPLEMENT [id number] 2019-Present [phone] [address] [place] [address] Indemnity [id number] 2019 Unknown MMO MMO MEDICARE SUPPLEMENT [id number] 2019-Present [phone] [address] [place] [address] Indemnity [id number] 2016 Medicare MEDICARE MEDICAR E A AND B [id number] 2016-Present [phone] [address] [address] [place] [address] Medicare [id number] 2016 Medicare MEDICARE MEDICAR E A AND B [id number] 2016-Present [phone] [place] [address] Medicare [id number] 2016 Medicare [id number] Social History Date Type Detail Facility Start: 07-10-2011 Tobacco smoking stat us MOIS Never smoked tobacco [facility] Start: 06-23-2021 End: 03-15-2023 Alcohol intake Current drinker of alcohol (finding) [facility] Start: 1950 Sex Assigned At Not on file [facility] Start: 08-19-2021 End: 03-04-2022 Exposure to SARS-CoV-2 (event) Not sure [facility] Start: 07-10-2011 Tobacco use and exposure Smoke less tobacco non-user [facility] Start: 12-15-2021 End: 12-25-2021 Exposure to SARS-CoV-2 (event) Unable to assess [facility] Work Phone: Start: 09-07-2022 History SDOH Alcohol Frequency 4 [facility] Start: 09-07-2022 History SDOH Alcohol Std Drinks 1 [facility] Start: 09-07-2022 History SDOH Social Connections Phone 2 [facility] Start: 09-07-2022 History SDOH Social Connections Yarsanism 98 [facility] Start: 09-07-2022 History SDOH Social Connections Meetings 3 [facility] Start: 09-07-2022 History SDOH Physica l Activity DPW 5 [facility] Start: 1950 [facility] Start: 09-06-2022 End: 09-10-2022 History of Social function [facility] Start: 09-06-2022 End: 09-10-2022 Social connection and isolation panel [facility] How often do you att end mormon or adventist services? Patient refused [facility] Do you belong to any clubs or organizations such as mormon groups, unions, fraternal or athletic groups, or school groups? Yes [facility] Are you now , , , , never or living with a partner? [facility] How often to you hav e a drink containing alcohol? 2-3 time sa week [facility] How many standard dr inks containing alcohol do you have on a typical day? 1 or 2 [facility] How often do you hav e 6 or more drinks on 1 occasion? Never [facility] Do you feel stress - tense, restless, nervous, or anxious, or unable to sleep at night because your mind is troubled all the time - these days [OSQ] To some extent [facility] (I/We) worried [facility] (my/our) food would run out before (I/we) got money to buy more. Never true [facility] In the past 12 month s, was there a time when you were not able to pay the mortgage or rent on time? No [facility] Medical Equipment Procedure Code Equipment Code Equipment Origin al Text Equipment Identifier Dates Mesh Symbotex 3d Green White Pet Macroporous Collagen [id number] 3.3x2.3mm - [id number] Start: 11-04-2022 Clinical Notes 08-04-2021 to 03-15-2023 Patient Chantal Betancur MD - 03/15/2023 8:48 AM ESTTelephone Encounter - Frederick Lanza LPN - 03/04/2023 10:13 AM ESTPatient Moshe De La Garza PA-C - 11/11/2022 9:16 AM EDT Note Date & Type Note Facility 03-15-2023 Note HNO ID: [id number] Author: Chantal Wilson MD Service: ? Author Type: Physician Type: Progress Notes Filed: 03/15/2023 10:28 AM Note Text: Chief Complaint Patient presents with: F/U 6 months HPI Jhon Cobb II is a 72 year old male who presents here today for 6 month follow up. Patient with Hx of Hyperlipidemia, general anxiety, obesity, Arachnoid cyst, insomnia, allergic rhinitis as well as those reviewed and addressed below and in review of systems. Patient continues to do well on the celexa and buspar. Any new concerns today? Patient indicated that he still feeling sore from his surgery in November. Any recent ER/hospital visits? None Patient declined COVID vaccine Past medical history, appointments, medications, allergies reviewed. Previous Medical History PAST MEDICAL HISTORY Diagnosis Date Advance directive discussed with patient 08/29/2021 Discussed 08/2021 Allergic rhinitis 02/06/2015 Arachnoid cyst 06/16/2019 left middle cranial fossa: Saw Neuro. No f/u unless symptoms develop. 09/2019 Benign non-nodular prostatic hyperplasia without lower urinary tract symptoms 02/06/2015 Carpal tunnel syndrome, bilateral 10/18/2019 NCS [facility]: 10/2019 moderate in degree. 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 Primary insomnia 08/07/2015 Sciatica 09/22/2005 Previous Surgical History PAST SURGICAL HISTORY Procedure Laterality Date COLONOSCOPY FLX DX W/COLLJ SPEC WHEN PFRMD 01/10/2003 Colonoscopy COLONOSCOPY FLX DX W/COLLJ SPEC WHEN PFRMD 03/23/2016 Colonoscopy, repeat 10 yrs,, Dr. Dumas FISSURECTOMY INCL SPHINCTEROTOMY WHEN PERFORMED REMV CATARACT EXTRACAP,INSERT LENS Bilateral June and July 2022 REPAIR INCISIONAL HERNIA,REDUCIBLE 11/04/2022 RESECT SMALL INTEST,SINGL RESEC/ANAS 03/05/2021 SIGMOIDOSCOPY FLX DX W/COLLJ SPEC BR/WA IF PFRMD 12/07/2006 Family History FAMILY HISTORY Problem Relation Age of Onset Breast Cancer Mother Diabetes Mother Coronary Artery Disease Mother Hypertension Mother Hypertension Father Patient Allergies ALLERGIES Allergen Reactions Lipitor [Atorvastat* Other: See Comments Elevated LFT's Tavist [Clemastine] Unknown Current Medications Current Outpatient Medications on File Prior to Visit Medication Sig zolpidem (AMBIEN) 10 mg Take 1 tablet by mouth once daily as needed for up to 30 days. Do not start before March 06, 2023. LORazepam (ATIVAN) 0.5 mg Once daily as needed. Tadalafil (CIALIS) 20 mg tab(s) Take 1 tablet by mouth once daily. As needed. loratadine-pseudoephedrine ER (CLARITIN-D 12 HOUR) 5-120 mg per tablet Take 1 tablet by mouth twice daily. citalopram (CELEXA) 20 mg tablet TAKE 1 TABLET EVERY DAY for anxiety Lactobacillus acidophilus (FLORAJEN ACIDOPHILUS) 20 billion cell capsule Take 1 capsule by mouth once daily. oxyCODONE IR (ROXICODONE) 10 mg tab Take 1 tablet by mouth every 6 hours as needed for pain. busPIRone (BUSPAR) 15 mg tablet Take 1 tablet by mouth twice daily. aspirin 81 mg cap Take 1 capsule by mouth once daily. No current facility-administered medications on file prior to visit. Social History Social History Tobacco Use Smoking status: Never Smokeless tobacco: Never Vaping Use Vaping Use: Never used Substance Use Topics Alcohol use: Yes Comment: occasionally Drug use: No Review of Symptoms REVIEW OF SYSTEMS GENERAL: No weight loss, malaise or fevers RESPIRATORY: Negative for cough, hemoptysis, wheezing, COPD, dyspnea or shortness of breath CARDIOVASCULAR: Negative for chest pain, leg swelling, hypertension, CHF or palpitations PSYCH: Negative for sleep disturbance, mood disorder and recent psychosocial stressors ENDOCRINE: Negative for cold or heat intolerance, polyuria, polydipsia and goiter NEURO: No history of headaches, syncope, paralysis, seizures or tremors EXAM: BP 132/84 (BP Site: Right Arm, BP Position: Sitting, BP Cuff Size: Large Adult) Pulse 82 Resp 16 Wt 103.4 kg (228 lb) BMI 30.92 kg/m? Last 5 Encounter Wt Readings: Date: Wt: 03/15/2023 103.4 kg (228 lb) 11/11/2022 100.2 kg (221 lb) 10/28/2022 104.3 kg (230 lb) 10/19/2022 101.8 kg (224 lb 6.4 oz) 10/09/2022 103 kg (227 lb) General Appearance: Well appearing, alert, in no acute distress, well-hydrated, well nourished.. Ps (more content not included)... [facility] 03-15-2023 Instructions Chantal Wilson MD - 03/15/2023 9:19 AM EST Please get labs and urine test done on or after 09/03/23 prior to your next visit. Consider getting the RSV vaccine from a local pharmacy. documented in this encounter [facility] 03-15-2023 History of Presen t illness Narrative Chief Complaint Patient presents with: F/U 6 months HPI Jhon Cobb II is a 72 year old male who presents here today for 6 month follow up. Patient with Hx of Hyperlipidemia, general anxiety, obesity, Arachnoid cyst, insomnia, allergic rhinitis as well as those reviewed and addressed below and in review of systems. Patient continues to do well on the celexa and buspar. Any new concerns today? Patient indicated that he still feeling sore from his surgery in November. Any recent ER/hospital visits? None Patient declined COVID vaccine Past medical history, appointments, medications, allergies reviewed. Previous Medical History PAST MEDICAL HISTORY Diagnosis Date Advance directive discussed with patient 08/29/2021 Discussed 08/2021 Allergic rhinitis 02/06/2015 Arachnoid cyst 06/16/2019 left middle cranial fossa: Saw Neuro. No f/u unless symptoms develop. 09/2019 Benign non-nodular prostatic hyperplasia without lower urinary tract symptoms 02/06/2015 Carpal tunnel syndrome, bilateral 10/18/2019 NCS WCH: 10/2019 moderate in degree. 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 Primary insomnia 08/07/2015 Sciatica 09/22/2005 Previous Surgical History PAST SURGICAL HISTORY Procedure Laterality Date COLONOSCOPY FLX DX W/COLLJ SPEC WHEN PFRMD 01/10/2003 Colonoscopy COLONOSCOPY FLX DX W/COLLJ SPEC WHEN PFRMD 03/23/2016 Colonoscopy, repeat 10 yrs,, Dr. Dumas FISSURECTOMY INCL SPHINCTEROTOMY WHEN PERFORMED REMV CATARACT EXTRACAP,INSERT LENS Bilateral June and July 2022 REPAIR INCISIONAL HERNIA,REDUCIBLE 11/04/2022 RESECT SMALL INTEST,SINGL RESEC/ANAS 03/05/2021 SIGMOIDOSCOPY FLX DX W/COLLJ SPEC BR/WA IF PFRMD 12/07/2006 Family History FAMILY HISTORY Problem Relation Age of Onset Breast Cancer Mother Diabetes Mother Coronary Artery Disease Mother Hypertension Mother Hypertension Father Patient Allergies ALLERGIES Allergen Reactions Lipitor [Atorvastat* Other: See Comments Elevated LFT's Tavist [Clemastine] Unknown Current Medications Current Outpatient Medications on File Prior to Visit Medication Sig zolpidem (AMBIEN) 10 mg Take 1 tablet by mouth once daily as needed for up to 30 days. Do not start before March 06, 2023. LORazepam (ATIVAN) 0.5 mg Once daily as needed. Tadalafil (CIALIS) 20 mg tab(s) Take 1 tablet by mouth once daily. As needed. loratadine-pseudoephedrine ER (CLARITIN-D 12 HOUR) 5-120 mg per tablet Take 1 tablet by mouth twice daily. citalopram (CELEXA) 20 mg tablet TAKE 1 TABLET EVERY DAY for anxiety Lactobacillus acidophilus (FLORAJEN ACIDOPHILUS) 20 billion cell capsule Take 1 capsule by mouth once daily. oxyCODONE IR (ROXICODONE) 10 mg tab Take 1 tablet by mouth every 6 hours as needed for pain. busPIRone (BUSPAR) 15 mg tablet Take 1 tablet by mouth twice daily. aspirin 81 mg cap Take 1 capsule by mouth once daily. No current facility-administered medications on file prior to visit. Social History Social History Tobacco Use Smoking status: Never Smokeless tobacco: Never Vaping Use Vaping Use: Never used Substance Use Topics Alcohol use: Yes Comment: occasionally Drug use: No Review of Symptoms REVIEW OF SYSTEMS GENERAL: No weight loss, malaise or fevers RESPIRATORY: Negative for cough, hemoptysis, wheezing, COPD, dyspnea or shortness of breath CARDIOVASCULAR: Negative for chest pain, leg swelling, hypertension, CHF or palpitations PSYCH: Negative for sleep disturbance, mood disorder and recent psychosocial stressors ENDOCRINE: Negative for cold or heat intolerance, polyuria, polydipsia and goiter NEURO: No history of headaches, syncope, paralysis, seizures or tremors EXAM: BP 132/84 (BP Site: Right Arm, BP Position: Sitting, BP Cuff Size: Large Adult) Pulse 82 Resp 16 Wt 103.4 kg (228 lb) BMI 30.92 kg/m Last 5 Encounter Wt Readings: Date: Wt: 03/15/2023 103.4 kg (228 lb) 11/11/2022 100.2 kg (221 lb) 10/28/2022 104.3 kg (230 lb) 10/19/2022 101.8 kg (224 lb 6.4 oz) 10/09/2022 103 kg (227 lb) General Appearance: Well appearing, alert, in no acute distress, well-hydrated, well nourished.. Psych: nol mood and affect. Neck: Supple, no adenopathy; thyroid symmetric, normal size, no bruits. Lungs: Lungs clear to auscultation. No wheezing, rhonchi, rales.. Heart: RRR without murmur, gallop, or rubs. No ectopy. Abdomen: Normal abdominal exam, Abdomen soft, non-tender. Bowel sounds normal. No masses, organomegaly. Extremities: No deformities, edema, skin discoloration, Good capillary refill. . Peripheral Pulses: Normal. Neurologic: Gait normal. Sensation grossly intact.. Health Maintenance List RSV Vaccine(1 - 1-dose 60+ series) Never done Covid-19 Vaccine( - 2022- season) due on 12/04/2022 Diabetes Screening due on 03/03/2026 Colorectal Cancer Screening due on 03/23/2026 Lipid Screening due on 03/03/2028 DTaP,Tdap,Td Vaccine(4 - Td or Tdap) due on 05/27/2029 Influenza Vaccine Completed Advance Directive Discussion Completed Depression Assessment Completed Hepatitis C Screening Completed Shingrix Vaccine Completed Pneumococcal Vaccine: 65+ Completed HPV Vaccine Aged Out Data reviewed Component Latest Ref Rng & Units 08/27/2022 03/03/2023 Protein, Total 6.3 - 8.0 g/dL 7.0 Albumin 3.9 - 4.9 g/dL 4.3 Calcium 8.5 - 10.2 mg/dL 9.4 Bilirubin, Total 0.2 - 1.3 mg/dL 0.9 Alkaline Phosphatase 38 - 113 U/L 88 AST 14 - 40 U/L 24 ALT 10 - 54 U/L 27 Glucose 74 - 99 mg/dL 107 (H) BUN 9 - 24 mg/dL 16 Creatinine 0.73 - 1.22 mg/dL 0.83 Sodium 136 - 144 mmol/L 135 (L) Potassium 3.7 - 5.1 mmol/L 4.4 Chloride 97 - 105 mmol/L 100 CO2 22 - 30 mmol/L 29 Anion Gap 9 - 18 mmol/L 6 (L) eGFR >=60 mL/min/1.73m 94 Total Cholesterol, Nonfasting <200 mg/dL 195 224 (H) Triglycerides, Nonfasting <150 mg/dL 70 95 HDL Cholesterol, Nonfasting >39 mg/dL 52 56 LDL Cholesterol, Nonfasting <100 mg/dL 129 (H) 149 (H) Non HDL Cholesterol, Nonfasting <130 mg/dL 143 (H) 168 (H) VLDL Cholesterol, Nonfasting <30 mg/dL 14 19 Total Chol/HDL Ratio, Nonfasting <5.10 mg/dL 3.75 4.00 LDL/HDL Ratio, Nonfasting <2.54 mg/dL 2.48 2.66 (H) Hemoglobin A1C 4.3 - 5.6 % 5.4 5.3 Estimated Average Glucose mg/dL 108 105 A/P ASSESSMENT/PLAN: 1. Mixed hyperlipidemia - ICD9: 272.2, ICD10: E78.2 (primary diagnosis) - Worsening control - Counseled on healthy diet and regular exercise - Discussed need for and benefit of weight loss. BMI 30.92 kg/(m^2) 2. Elevated blood sugar - ICD9: 790.29, ICD10: R73.9 - controlled on recent lab. 3. Generalized anxiety disorder - ICD9: 300.02, ICD10: F41.1 - stable with current Tx.. no changes needed. 4. Obesity, Class I, BMI 30-34.9 - ICD9: 278.00, ICD10: E66.9 - patient to work on a 5-10 lbs weight loss. 5. Primary insomnia - ICD9: 307.42, ICD10: F51.01 - stable with current Tx. Advised on getting the RSV vaccine from a local pharmacy. Requested Prescriptions Signed Prescriptions Disp Refills Tadalafil (CIALIS) 20 mg tablet 30 tablet 2 Sig: Take 1 tablet by mouth once daily. As needed. loratadine-pseudoephedrine ER (CLARITIN-D 12 HOUR) 5-120 mg per tablet 60 tablet 5 Sig: Take 1 tablet by mouth two times a day. citalopram (CELEXA) 20 mg tablet 90 tablet 1 Sig: TAKE 1 TABLET EVERY DAY for anxiety busPIRone (BUSPAR) 15 mg tablet 180 tablet 1 Sig: Take 1 tablet by mouth two times a day. F/u 6 months extensive check CMP, Lipid, UA, A1c, PSA, CBC and TSH prior Chantal Wilson MD documented in this encounter [facility] 03-04-2023 Miscellaneous Notes Request is being addressed in another TE. Frederick Lanza LPN documented in this encounter [facility] 02-03-2023 Miscellaneous Notes The following approved medication requests have been transmitted electronically. Requested Prescriptions Signed Prescriptions Disp Refills zolpidem (AMBIEN) 10 mg 30 tablet 0 Sig: Take 1 tablet by mouth once daily as needed for up to 30 days. Do not start before February 04, 2023. Authorizing Provider: CHANTAL WILSON MD PDMP website checked and validated. All prescriptions have been APPROPRIATELY filled. No suspicious activity was identified. 02/03/2023 by Chnatal Wilson MD Patient last visit 10/28/22 Follow up appointment scheduled 03/15/23 Adriana Perez Ma documented in this encounter [facility] 01-05-2023 Miscellaneous Notes The following approved medication requests have been transmitted electronically. Requested Prescriptions Signed Prescriptions Disp Refills zolpidem (AMBIEN) 10 mg 30 tablet 0 Sig: Take 1 tablet by mouth once daily as needed for up to 30 days. Authorizing Provider: TIKI VINES PA-C Patient has been identified by name and date of : Yes Patient phones for refill(s): Requested Prescriptions Pending Prescriptions Disp Refills zolpidem (AMBIEN) 10 mg 30 tablet 0 Sig: Take 1 tablet by mouth once daily as needed for up to 30 days. Date of last office visit in primary care: [facility] 10/28/22 NOV 03/15/23 Last 2 Encounter Wt Readings: Date: Wt: 11/11/2022 100.2 kg (221 lb) 10/28/2022 104.3 kg (230 lb) Please advise. Thank you. KAY Urena documented in this encounter [facility] 12-08-2022 Miscellaneous Notes PDMP reviewed. Patient requested and refilled prescriptions appropriately. No suspicious activity noted. Last office visit: 10/28/22 F/u scheduled: 03/15/23 Last refilled on: Ambien #30 with 0 refill on 11/09/22 Paola Sykes Ma documented in this encounter [facility] 11-11-2022 Note HNO ID: [id number] Author: Moshe Zamora PA-C Service: ? Author Type: Physician Nuclear Process Engineer Type: Progress Notes Filed: 11/11/2022 2:17 PM Note Text: FOLLOW UP VISIT - HERNIA NAME: Jhon Cobb II [facility] NO.: [id number] DATE OF SERVICE: 11/11/2022 : 1950 REFERRING PHYSICIAN: Chantal Wilson MD Jhon is a patient I am following with Dr. Dumas for an incisional hernia. Dr. Dumas performed an incisional hernia repair with mesh on 11/04/22. The patient currently notes no major complaints. his appetite has been good. he denies fever, chills or abdominal pain. he does note some mild incisional discomfort. he notes no bulges at the operative site VITALS: Blood pressure 138/80, pulse 87, temperature 36.7 ?C (98 ?F), weight 100.2 kg (221 lb), SpO2 97 %. General: patient is alert, cooperative, pleasant and in no acute distress On examination, the abdomen is benign. The incision is healing well without signs of infection or inflammation. There are no signs of recurrent hernia formation. Assessment IMPRESSION: status post incisional hernia repair with mesh PLAN: If the patient notes any problems, he should contact me immediately. he may return to his regular activities as tolerated, with the exception of no lifting greater than 20 pounds for the next 7 weeks. If patient feels the urge to cough or sneeze, they should brace against the repair site with their hands or a pillow. Diagnoses: (Z98.890, Z87.19) S/P hernia repair (primary encounter diagnosis) Return to Clinic: The patient is instructed to follow-up with me as needed. Patient verbalized understanding of all above and agreed with the plan. Moshe Zamora PA-C [facility] 11-11-2022 Instructions Moshe Zamora PA-C - 11/11/2022 9:39 AM EDT The following instructions are important for you related to your office visit today with the [facility]. INSTRUCTIONS FOLLOWING YOUR RECENT HERNIA SURGERY You should be returning to your regular diet, If you have having persistent issues with tolerating your diet, please contact our office It is not unusual to have incisional pain for the first 1-2 weeks following surgery. If this persists beyond 2 weeks, contact the office You may return to your regular activities. You may drive if you are no longer taking narcotic pain medication. Climbing stairs is fine. Walking in encouraged. Sitting up from bed may be uncomfortable. Sitting up using your lateral abdominal muscles (sitting up sideways) is usually more comfortable. You should perform no lifting greater than 20lbs for the next 6-7 weeks. Usually 8 weeks total from the date of surgery. It is not unusual to have loose stools following surgery. This is usually self limited and related to the antibiotics that were given during your surgical procedure. Fiber supplementation and yogurt with active cultures may help you return to regular bowel activity. If you note loose stools persisting for over 2 weeks, or significant cramping or loose bloody stools, contact the office immediately. Contact the office immediately if any of your incisions become increasingly tender, red or have drainage. Again, if you have any difficulties or concerns, contact our office immediately. If you note any additional difficulties, questions, or concerns, you should contact our office immediately @ [phone] and ask to be transferred to the General Surgery department. documented in this encounter [facility] 11-11-2022 History of Presen t illness Narrative FOLLOW UP VISIT - HERNIA NAME: Jhon Haas [facility] NO.: [id number] DATE OF SERVICE: 11/11/2022 : 1950 REFERRING PHYSICIAN: Chantal Wilson MD Jhon is a patient I am following with Dr. Dumas for an incisional hernia. Dr. Dumas performed an incisional hernia repair with mesh on 11/04/22. The patient currently notes no major complaints. his appetite has been good. he denies fever, chills or abdominal pain. he does note some mild incisional discomfort. he notes no bulges at the operative site VITALS: Blood pressure 138/80, pulse 87, temperature 36.7 C (98 F), weight 100.2 kg (221 lb), SpO2 97 %. General: patient is alert, cooperative, pleasant and in no acute distress On examination, the abdomen is benign. The incision is healing well without signs of infection or inflammation. There are no signs of recurrent hernia formation. Assessment IMPRESSION: status post incisional hernia repair with mesh PLAN: If the patient notes any problems, he should contact me immediately. he may return to his regular activities as tolerated, with the exception of no lifting greater than 20 pounds for the next 7 weeks. If patient feels the urge to cough or sneeze, they should brace against the repair site with their hands or a pillow. Diagnoses: (Z98.890, Z87.19) S/P hernia repair (primary encounter diagnosis) Return to Clinic: The patient is instructed to follow-up with me as needed. Patient verbalized understanding of all above and agreed with the plan. Moshe Zamora PA-C documented in this encounter [facility] 11-09-2022 Miscellaneous Notes The following approved medication requests have been transmitted electronically. Requested Prescriptions Signed Prescriptions Disp Refills loratadine-pseudoephedrine ER (CLARITIN-D 12 HOUR) 5-120 mg per tablet 60 tablet 5 Sig: Take 1 tablet by mouth twice daily. Authorizing Provider: CHANTAL WILSON citalopram (CELEXA) 20 mg tablet 90 tablet 1 Sig: TAKE 1 TABLET EVERY DAY for anxiety Authorizing Provider: CHANTAL WILSON zolpidem (AMBIEN) 10 mg 30 tablet 0 Sig: Take 1 tablet by mouth once daily as needed for up to 30 days. Authorizing Provider: CHANTAL WILSON MD PDMP website checked and validated. All prescriptions have been APPROPRIATELY filled. No suspicious activity was identified. 11/09/2022 by Chantal Wilson MD Patient has been identified by name and date of : Yes Requested Prescriptions Pending Prescriptions Disp Refills loratadine-pseudoephedrine ER (CLARITIN-D 12 HOUR) 5-120 mg per tablet 60 tablet 5 Sig: Take 1 tablet by mouth twice daily. citalopram (CELEXA) 20 mg tablet 90 tablet 1 Sig: TAKE 1 TABLET EVERY DAY for anxiety zolpidem (AMBIEN) 10 mg 30 tablet 0 Sig: Take 1 tablet by mouth once daily as needed for up to 30 days. RX INSTRUCTIONS: Patient aware RX will be sent to pharmacy. No need to notify patient. Patient last office visit: 10/28/22 Patient next office visit: 03/15/23 Maria Eugenia Monterroso MA documented in this encounter [facility] 11-09-2022 Miscellaneous Notes Addressed in duplicate encounter. Patient has been identified by name and date of : Yes Requested Prescriptions Pending Prescriptions Disp Refills zolpidem (AMBIEN) 10 mg 30 tablet 0 Sig: Take 1 tablet by mouth once daily as needed for up to 30 days. RX INSTRUCTIONS: Patient aware RX will be sent to pharmacy. No need to notify patient. Margaret Tesfaye MA [facility] 09/2022Feb 1403/2023 Last refill: 10/10/2022 documented in this encounter [facility] 11-09-2022 Miscellaneous Notes Patient has been identified by name and date of : Yes Requested Prescriptions Pending Prescriptions Disp Refills Lactobacillus acidophilus (FLORAJEN ACIDOPHILUS) 20 billion cell capsule 30 capsule 5 Sig: Take 1 capsule by mouth once daily. RX INSTRUCTIONS: Patient aware RX will be sent to pharmacy. No need to notify patient. Margaret Tesfaye MA [place] 09/2022Feb 1403/2023 Last refill: 06/2022 documented in this encounter [facility] 11-04-2022 Note HNO ID: [id number] Author: Shanelle Koroma APRN.MOLD SETTER Service: Anesthesiology Author Type: Nurse Priest Type: Anesthesia Procedure Notes Filed: 11/04/2022 9:00 AM Note Text: ANESTHESIOLOGY PROCEDURE NOTE Airway General Information Procedure Start Time/Medication Administration: 11/04/2022 8:53 AM Patient location during procedure: OR Staffing MOLD SETTER: Shanelle Koroma APRN.MOLD SETTER Performed by: MOLD SETTER Indications and Patient Condition Indications for airway management: anesthesia Preoxygenated: yes anesthesia circuit Patient position: sniffing Method: asleep Cricoid Pressure: No Manual In-Line Stabilization: No Difficult Mask: No Airway Accessory: oral airway Final Airway Details Final airway type: endotracheal airway Final Endotracheal Airway: ETT Cuffed: yes Successful intubation technique: direct laryngoscopy Endotracheal tube insertion site: oral Blade: Floyd Blade size: #4 ETT size (mm): 7.5 Measured from: lips Measurement (cm): 22 Placement verified by: capnometry Cormack-Lehane Classification: grade I - full view of glottis Number of attempts at approach: 1 Airway not difficult SIGNATURE: Shanelle Koroma APRN.MOLD SETTER PATIENT NAME: Jhon Cobb II DATE: November 04, 2022 TIME: 9:00 AM CSN: [id number] [facility] 10-28-2022 Note HNO ID: [id number] Author: Tiki Vines PA-C Service: ? Author Type: Physician Nuclear Process Engineer Type: Progress Notes Filed: 10/28/2022 2:39 PM Note Text: Chief Complaint Patient presents with: Painful Toenails: Left great toenail HPI Jhon Cobb II is a 72 year old male who presents here today for Above Complaints.. Patient has noted left toe pain. Improving some but still noting pain and swelling. No fevers. Past medical history, appointments, medications, allergies reviewed. Previous Medical History PAST MEDICAL HISTORY Diagnosis Date Advance directive discussed with patient 08/29/2021 Discussed 08/2021 Allergic rhinitis 02/06/2015 Arachnoid cyst 06/16/2019 left middle cranial fossa: Saw Neuro. No f/u unless symptoms develop. 09/2019 Benign non-nodular prostatic hyperplasia without lower urinary tract symptoms 02/06/2015 Carpal tunnel syndrome, bilateral 10/18/2019 NCS WCH: 10/2019 moderate in degree. 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 Primary insomnia 08/07/2015 Sciatica 09/22/2005 Previous Surgical History PAST SURGICAL HISTORY Procedure Laterality Date COLONOSCOPY FLX DX W/COLLJ SPEC WHEN PFRMD 01/10/2003 Colonoscopy COLONOSCOPY FLX DX W/COLLJ SPEC WHEN PFRMD 03/23/2016 Colonoscopy, repeat 10 yrs,, Dr. Dumas FISSURECTOMY INCL SPHINCTEROTOMY WHEN PERFORMED REMV CATARACT EXTRACAP,INSERT LENS Bilateral June and July 2022 RESECT SMALL INTEST,SINGL RESEC/ANAS 03/05/2021 SIGMOIDOSCOPY FLX DX W/COLLJ SPEC BR/WA IF PFRMD 12/07/2006 Family History FAMILY HISTORY Problem Relation Age of Onset Breast Cancer Mother Diabetes Mother Coronary Artery Disease Mother Hypertension Mother Hypertension Father Patient Allergies ALLERGIES Allergen Reactions Lipitor [Atorvastat* Other: See Comments Elevated LFT's Tavist [Clemastine] Unknown Current Medications Current Outpatient Medications on File Prior to Visit Medication Sig zolpidem (AMBIEN) 10 mg Take 1 tablet by mouth once daily as needed for up to 30 days. Do not start before October 10, 2022. Tadalafil (CIALIS) 20 mg tab(s) Take 1 tablet by mouth once daily. As needed. citalopram (CELEXA) 20 mg tablet TAKE 1 TABLET EVERY DAY for anxiety busPIRone (BUSPAR) 15 mg tablet Take 1 tablet by mouth twice daily. loratadine-pseudoephedrine ER (CLARITIN-D 12 HOUR) 5-120 mg per tablet Take 1 tablet by mouth twice daily. Lactobacillus acidophilus (FLORAJEN ACIDOPHILUS) 20 billion cell cap Take 1 Each by mouth once daily. aspirin 81 mg cap Take 1 capsule by mouth once daily. No current facility-administered medications on file prior to visit. Social History Social History Tobacco Use Smoking status: Never Smokeless tobacco: Never Vaping Use Vaping Use: Never used Substance Use Topics Alcohol use: Yes Comment: occasionally Drug use: No Review of Symptoms REVIEW OF SYSTEMS See hpi EXAM: BP 120/80 (BP Site: Left Arm, BP Position: Sitting, BP Cuff Size: Large Adult) Pulse 67 Temp 36.6 ?C (97.8 ?F) Resp 18 Wt 104.3 kg (230 lb) BMI 31.19 kg/m? General Appearance: Well appearing, alert, in no acute distress, well-hydrated, well nourished.. Skin: swelling and erythema with pain noted around toenail. . Health Maintenance List COVID-19 VACCINE(3 - Moderna series) due on 03/04/2023 INFLUENZA(1) due on 12/04/2022 DIABETES SCREEN due on 08/27/2025 COLORECTAL CANCER SCREENING due on 03/23/2026 LIPID SCREEN due on 08/28/2027 DTAP,TDAP,TD(4 - Td or Tdap) due on 05/27/2029 ADVANCE DIRECTIVE DISCUSSION Completed DEPRESSION ASSESSMENT Completed HEPATITIS C SCREENING Completed SHINGRIX VACCINE Completed PNEUMOCOCCAL: 65+ Completed HPV VACCINE Aged Out Data reviewed ASSESSMENT/PLAN: 1. Paronychia of great toe - ICD9: 681.11, ICD10: L03.039 (primary diagnosis) - Begin treatment with Cefadroxil (Duricef) -follow up prn. 2. Generalized anxiety disorder - ICD9: 300.02, ICD10: F41.1 Refill given. Unable to connect to oarrs to review. - LORAZEPAM 0.5 MG TABLET Tiki Vines PA-C [facility] 10-28-2022 History of Presen t illness Narrative Chief Complaint Patient presents with: Painful Toenails: Left great toenail HPI Jhon Cobb II is a 72 year old male who presents here today for Above Complaints.. Patient has noted left toe pain. Improving some but still noting pain and swelling. No fevers. Past medical history, appointments, medications, allergies reviewed. Previous Medical History PAST MEDICAL HISTORY Diagnosis Date Advance directive discussed with patient 08/29/2021 Discussed 08/2021 Allergic rhinitis 02/06/2015 Arachnoid cyst 06/16/2019 left middle cranial fossa: Saw Neuro. No f/u unless symptoms develop. 09/2019 Benign non-nodular prostatic hyperplasia without lower urinary tract symptoms 02/06/2015 Carpal tunnel syndrome, bilateral 10/18/2019 NCS WCH: 10/2019 moderate in degree. 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 Primary insomnia 08/07/2015 Sciatica 09/22/2005 Previous Surgical History PAST SURGICAL HISTORY Procedure Laterality Date COLONOSCOPY FLX DX W/COLLJ SPEC WHEN PFRMD 01/10/2003 Colonoscopy COLONOSCOPY FLX DX W/COLLJ SPEC WHEN PFRMD 03/23/2016 Colonoscopy, repeat 10 yrs,, Dr. Dumas FISSURECTOMY INCL SPHINCTEROTOMY WHEN PERFORMED REMV CATARACT EXTRACAP,INSERT LENS Bilateral June and July 2022 RESECT SMALL INTEST,SINGL RESEC/ANAS 03/05/2021 SIGMOIDOSCOPY FLX DX W/COLLJ SPEC BR/WA IF PFRMD 12/07/2006 Family History FAMILY HISTORY Problem Relation Age of Onset Breast Cancer Mother Diabetes Mother Coronary Artery Disease Mother Hypertension Mother Hypertension Father Patient Allergies ALLERGIES Allergen Reactions Lipitor [Atorvastat* Other: See Comments Elevated LFT's Tavist [Clemastine] Unknown Current Medications Current Outpatient Medications on File Prior to Visit Medication Sig zolpidem (AMBIEN) 10 mg Take 1 tablet by mouth once daily as needed for up to 30 days. Do not start before October 10, 2022. Tadalafil (CIALIS) 20 mg tab(s) Take 1 tablet by mouth once daily. As needed. citalopram (CELEXA) 20 mg tablet TAKE 1 TABLET EVERY DAY for anxiety busPIRone (BUSPAR) 15 mg tablet Take 1 tablet by mouth twice daily. loratadine-pseudoephedrine ER (CLARITIN-D 12 HOUR) 5-120 mg per tablet Take 1 tablet by mouth twice daily. Lactobacillus acidophilus (FLORAJEN ACIDOPHILUS) 20 billion cell cap Take 1 Each by mouth once daily. aspirin 81 mg cap Take 1 capsule by mouth once daily. No current facility-administered medications on file prior to visit. Social History Social History Tobacco Use Smoking status: Never Smokeless tobacco: Never Vaping Use Vaping Use: Never used Substance Use Topics Alcohol use: Yes Comment: occasionally Drug use: No Review of Symptoms REVIEW OF SYSTEMS See hpi EXAM: BP 120/80 (BP Site: Left Arm, BP Position: Sitting, BP Cuff Size: Large Adult) Pulse 67 Temp 36.6 C (97.8 F) Resp 18 Wt 104.3 kg (230 lb) BMI 31.19 kg/m General Appearance: Well appearing, alert, in no acute distress, well-hydrated, well nourished.. Skin: swelling and erythema with pain noted around toenail. . Health Maintenance List COVID-19 VACCINE(3 - Moderna series) due on 03/04/2023 INFLUENZA(1) due on 12/04/2022 DIABETES SCREEN due on 08/27/2025 COLORECTAL CANCER SCREENING due on 03/23/2026 LIPID SCREEN due on 08/28/2027 DTAP,TDAP,TD(4 - Td or Tdap) due on 05/27/2029 ADVANCE DIRECTIVE DISCUSSION Completed DEPRESSION ASSESSMENT Completed HEPATITIS C SCREENING Completed SHINGRIX VACCINE Completed PNEUMOCOCCAL: 65+ Completed HPV VACCINE Aged Out Data reviewed ASSESSMENT/PLAN: 1. Paronychia of great toe - ICD9: 681.11, ICD10: L03.039 (primary diagnosis) - Begin treatment with Cefadroxil (Duricef) -follow up prn. 2. Generalized anxiety disorder - ICD9: 300.02, ICD10: F41.1 Refill given. Unable to connect to oarrs to review. - LORAZEPAM 0.5 MG TABLET Tiki Vines PA-C documented in this encounter [facility] 10-19-2022 Note HNO ID: [id number] Author: Sanjiv Dumas MD Service: ? Author Type: Physician Type: Progress Notes Filed: 10/27/2022 10:59 AM Note Text: HISTORY AND PHYSICAL Jhon Haas Older II 1950 REFERRING PHYSICIAN: Chantal Wilson MD CHIEF COMPLAINT: Consult (Incisional hernia) HPI: Jhon is a 71 year old male with a complaint of a bulge in his prior local incision. The patient notes discomfort in this area with lifting and straining. The symptoms have maintained, over the past few weeks. The patient notes no symptoms of bowel obstruction and denies nausea or vomiting. The patient was seen by his primary care physician who felt the patient has a hernia. Jhon was referred for evaluation and treatment. The patient is being seen by me today at the request of Chantal Bermeo MD for my opinion and advice regarding Incisional hernia, without obstruction or gangrene. PAST MEDICAL HISTORY Diagnosis Date Advance directive discussed with patient 08/29/2021 Discussed 08/2021 Allergic rhinitis 02/06/2015 Arachnoid cyst 06/16/2019 left middle cranial fossa: Saw Neuro. No f/u unless symptoms develop. 09/2019 Benign non-nodular prostatic hyperplasia without lower urinary tract symptoms 02/06/2015 Carpal tunnel syndrome, bilateral 10/18/2019 NCS WCH: 10/2019 moderate in degree. 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 Primary insomnia 08/07/2015 Sciatica 09/22/2005 PAST SURGICAL HISTORY Procedure Laterality Date COLONOSCOPY FLX DX W/COLLJ SPEC WHEN PFRMD 01/10/2003 Colonoscopy COLONOSCOPY FLX DX W/COLLJ SPEC WHEN PFRMD 03/23/2016 Colonoscopy, repeat 10 yrs,, Dr. Dumas FISSURECTOMY INCL SPHINCTEROTOMY WHEN PERFORMED REMV CATARACT EXTRACAP,INSERT LENS Bilateral June and July 2022 RESECT SMALL INTEST,SINGL RESEC/ANAS 03/05/2021 SIGMOIDOSCOPY FLX DX W/COLLJ SPEC BR/WA IF PFRMD 12/07/2006 Current Outpatient Medications Medication Sig zolpidem (AMBIEN) 10 mg Take 1 tablet by mouth once daily as needed for up to 30 days. Do not start before October 10, 2022. LORazepam (ATIVAN) 0.5 mg Once daily as needed. Tadalafil (CIALIS) 20 mg tab(s) Take 1 tablet by mouth once daily. As needed. citalopram (CELEXA) 20 mg tablet TAKE 1 TABLET EVERY DAY for anxiety busPIRone (BUSPAR) 15 mg tablet Take 1 tablet by mouth twice daily. loratadine-pseudoephedrine ER (CLARITIN-D 12 HOUR) 5-120 mg per tablet Take 1 tablet by mouth twice daily. Lactobacillus acidophilus (FLORAJEN ACIDOPHILUS) 20 billion cell cap Take 1 Each by mouth once daily. aspirin 81 mg cap Take 1 capsule by mouth once daily. No current facility-administered medications for this visit. ALLERGIES: Lipitor [Atorvastatin Calcium] and Tavist [Clemastine] PERSONAL HISTORY: Social History Tobacco Use Smoking status: Never Smokeless tobacco: Never Vaping Use Vaping Use: Never used Substance Use Topics Alcohol use: Yes Comment: occasionally Drug use: No FAMILY HISTORY: FAMILY HISTORY Problem Relation Age of Onset Breast Cancer Mother Diabetes Mother Coronary Artery Disease Mother Hypertension Mother Hypertension Father REVIEW OF SYMPTOMS: The review of systems data was entered by the nurse and reviewed by ca Nursing Notes: Tarah Box LPN 10/19/2022 1:50 PM Signed REVIEW OF SYSTEMS: General: The patient denies fatigue, denies weight loss, denies weight gain, denies feeling hot, and denies feelings of cold. Eyes: The patient denies glaucoma, denies eye injury/surgery, wears glasses or contacts. Ear/Nose/Throat: The patient NOTES allergies, denies hayfever, denies ear infections, and denies bloody noses. Cardiovascular: The patient denies chest pain, denies heart disease, denies high blood pressure,denies cardiac stent, denies prior heart attack, denies irregular heart beat, denies high cholesterol, denies poor circulation, denies heart failure, other cardiac issues, denies claudication, denies cold feet, denies peripheral arterial stent. Respiratory: The patient denies tuberculosis, denies pneumonia, denies frequent cough, denies pulmonary embolism, denies shortness of breath, and denies coughing up blood. Gastrointestinal: The patient denies difficulty swallowing, denies acid reflux, denies ulcers, denies vomiting, denies jaundice/hepatitis, denies gallbladder problems, de (more content not included)... [facility] 10-13-2022 Note HNO ID: [id number] Author: Barbra Garcia LPN Service: ? Author Type: ? Type: Progress Notes Filed: 10/13/2022 9:11 AM Note Text: Patient presents for suture removal per Dr Wilson. Incision healing; well approximated, no pain, no redness, no drainage noted. Removed 4 sutures from left forearm without difficulty. Patient tolerated well. Barbra Garcia LPN [facility] 10-13-2022 History of Presen t illness Narrative Patient presents for suture removal per Dr Wilson. Incision healing; well approximated, no pain, no redness, no drainage noted. Removed 4 sutures from left forearm without difficulty. Patient tolerated well. Barbra Garcia LPN documented in this encounter [facility] documented as of this encounter (statuses as of 11/09/2022) [facility]-07[facility] History of Past illness Narrative* Problem Noted Date Diagnosed Date Resolved Date Incisional hernia without ob struction or gangrene 10/09/2022 11/04/2022 documented as of this encounter (statuses as of 11/09/2022) [facility] History of Past illness Narrative* Problem Noted Date Diagnosed Date Resolved Date Incisional hernia without ob struction or gangrene 10/09/2022 11/04/2022 documented as of this encounter (statuses as of 11/09/2022) [facility] History of Past illness Narrative* Problem Noted Date Diagnosed Date Resolved Date Incisional hernia without ob struction or gangrene 10/09/2022 11/04/2022 documented as of this encounter (statuses as of 11/11/2022) [facility] History of Past illness Narrative* Problem Noted Date Diagnosed Date Resolved Date Incisional hernia without ob struction or gangrene 10/09/2022 11/04/2022 documented as of this encounter (statuses as of 12/08/2022) [facility] History of Past illness Narrative* Problem Noted Date Diagnosed Date Resolved Date Incisional hernia without ob struction or gangrene 10/09/2022 11/04/2022 documented as of this encounter (statuses as of 12/09/2022) [facility] History of Past illness Narrative* Problem Noted Date Diagnosed Date Resolved Date Incisional hernia without ob struction or gangrene 10/09/2022 11/04/2022 documented as of this encounter (statuses as of 01/06/2023) [facility] History of Past illness Narrative* Problem Noted Date Diagnosed Date Resolved Date Incisional hernia without ob struction or gangrene 10/09/2022 11/04/2022 documented as of this encounter (statuses as of 01/28/2023) [facility] History of Past illness Narrative* Problem Noted Date Diagnosed Date Resolved Date Incisional hernia without ob struction or gangrene 10/09/2022 11/04/2022 documented as of this encounter (statuses as of 02/04/2023) [facility] History of Past illness Narrative* Problem Noted Date Diagnosed Date Resolved Date Incisional hernia without ob struction or gangrene 10/09/2022 11/04/2022 documented as of this encounter (statuses as of 03/04/2023) [facility] History of Past illness Narrative* Problem Noted Date Diagnosed Date Resolved Date Incisional hernia without ob struction or gangrene 10/09/2022 11/04/2022 documented as of this encounter (statuses as of 03/15/2023) [facility] History of Past illness Narrative* Problem Noted Date Diagnosed Date Resolved Date Incisional hernia without ob struction or gangrene 10/09/2022 11/04/2022 documented as of this encounter (statuses as of 03/15/2023) [facility] NoteHNO ID: [id number] Author: Chantal Wilson MD Service: ? Author Type: Physician Type: Progress Notes Filed: 10/09/2022 9:47 AM Note Text: Chief Complaint Patient presents with: Abdominal Pain: URQ x 2 weeks HPI Jhon Cobb II is a 71 year old male who presents here today for hernia. Office visit - hernia Patient has noted a lump above the abdominal incision that is painful off and on for the past two months. Office visit - excision. At last appt patient was noted to have an abnormal growth on the left dorsal forearm. Office visit - neoplasm of uncertain behavior of skin on fore arm. Developed last week. Not tender unless pushed on hard. No increased erythema. No fevers or chills. No drainage. Office visit - medicare wellness Patient with Hx of Hyperlipidemia, general anxiety, obesity, Arachnoid cyst, insomnia, allergic rhinitis as well as those reviewed and addressed below and in review of systems. Patient has been having difficulty with erections. Past medical history, appointments, medications, allergies reviewed. Previous Medical History PAST MEDICAL HISTORY Diagnosis Date Advance directive discussed with patient 08/29/2021 Discussed 08/2021 Allergic rhinitis 02/06/2015 Arachnoid cyst 06/16/2019 left middle cranial fossa: Saw Neuro. No f/u unless symptoms develop. 09/2019 Benign non-nodular prostatic hyperplasia without lower urinary tract symptoms 02/06/2015 Carpal tunnel syndrome, bilateral 10/18/2019 NCS WCH: 10/2019 moderate in degree. 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 Primary insomnia 08/07/2015 Sciatica 09/22/2005 Previous Surgical History PAST SURGICAL HISTORY Procedure Laterality Date COLONOSCOPY FLX DX W/COLLJ SPEC WHEN PFRMD 01/10/2003 Colonoscopy COLONOSCOPY FLX DX W/COLLJ SPEC WHEN PFRMD 03/23/2016 Colonoscopy, repeat 10 yrs,, Dr. Dumas FISSURECTOMY INCL SPHINCTEROTOMY WHEN PERFORMED REMV CATARACT EXTRACAP,INSERT LENS Bilateral June and July 2022 RESECT SMALL INTEST,SINGL RESEC/ANAS 03/05/2021 SIGMOIDOSCOPY FLX DX W/COLLJ SPEC BR/WA IF PFRMD 12/07/2006 Family History FAMILY HISTORY Problem Relation Age of Onset Breast Cancer Mother Diabetes Mother Coronary Artery Disease Mother Hypertension Mother Hypertension Father Patient Allergies ALLERGIES Allergen Reactions Lipitor [Atorvastat* Other: See Comments Elevated LFT's Tavist [Clemastine] Unknown Current Medications Current Outpatient Medications on File Prior to Visit Medication Sig LORazepam (ATIVAN) 0.5 mg Once daily as needed. zolpidem (AMBIEN) 10 mg Take 1 tablet by mouth once daily as needed for up to 30 days. Tadalafil (CIALIS) 20 mg tab(s) Take 1 tablet by mouth once daily. As needed. citalopram (CELEXA) 20 mg tablet TAKE 1 TABLET EVERY DAY for anxiety busPIRone (BUSPAR) 15 mg tablet Take 1 tablet by mouth twice daily. loratadine-pseudoephedrine ER (CLARITIN-D 12 HOUR) 5-120 mg per tablet Take 1 tablet by mouth twice daily. Lactobacillus acidophilus (FLORAJEN ACIDOPHILUS) 20 billion cell cap Take 1 Each by mouth once daily. aspirin 81 mg cap Take 1 capsule by mouth once daily. No current facility-administered medications on file prior to visit. Social History Social History Tobacco Use Smoking status: Never Smokeless tobacco: Never Vaping Use Vaping Use: Never used Substance Use Topics Alcohol use: Yes Comment: occasionally Drug use: No Review of Symptoms REVIEW OF SYSTEMS See HPI EXAM: BP 124/86 Pulse 70 Resp 14 Wt 103 kg (227 lb) BMI 32.11 kg/m? General Appearance: Well appearing, alert, in no acute distress, well-hydrated, well nourished.. Abdomen: small mildly tender incisional hernia at the top of the midline abdominal scar. . Health Maintenance List COVID-19 VACCINE(3 - Booster for Moderna series) due on 03/04/2023 INFLUENZA(1) due on 12/04/2022 DIABETES SCREEN due on 08/27/2025 COLORECTAL CANCER SCREENING due on 03/23/2026 LIPID SCREEN due on 08/28/2027 DTAP,TDAP,TD(4 - Td or Tdap) due on 05/27/2029 ADVANCE DIRECTIVE DISCUSSION Completed DEPRESSION ASSESSMENT Completed HEPATITIS C SCREENING Completed SHINGRIX VACCINE Completed PNEUMOCOCCAL: 65+ Completed Data reviewed A/P ASSESSMENT/PLAN: 1. Incisional hernia, without obstruction or gangrene - ICD9: 553.21, ICD10: K43.2 (more content not included)...[facility]07-03-2023 Miscellaneous Notes* Telephone Encounter - Margaret Tesfaye MA - 10/05/2022 4:20 PM EDT Patient notified and voiced understanding. 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 [facility] NoteHNO ID: [id number] Author: Chantal Wilson MD Service: ? Author Type: Physician Type: Procedures Filed: 10/05/2022 3:12 PM Note Text: UNIVERSAL PROTOCOL / SAFETY CHECKLIST Procedure to be Performed: skin excision for biopsy Sign In: A Moment of CARE was completed. Personnel directly involved with the procedure wore the appropriate PPE (Personal Protective Equipment). Patient/Surrogate Stated/Verified: PATIENT VERIFIED(optional for EMERGENT procedures): Patient name, Date of , Relevant allergies, and The intended procedure Time Out Communication: Intended patient and procedure match the source documents. Consent documented and matches the intended procedure. Correct side/site marked and visible. Medications required for procedure verified. Fire risk assessed and interventions discussed. Sign Out: SIGN OUT (optional for EMERGENT procedures): All instruments, equipment, possible retained foreign bodies accounted for. Post-procedure follow-up management communicated and Plan of Care Visit completed when applicable. Area was cleansed with betadine and alcohol then anesthetized with 0.5% lido with epi at 1:100,000. The area was draped in normal sterile fashion. The lesion was excised with a #15 blade in an elliptical fashion. Electrocaughtery set at 28 was used to assist with hemostasis. The edges were brought back together with 3-0 Ethilon with 4 interrupted mattress sutures. The area was then cleansed and covered with antibiotic ointment and a sterile dressing. Patient tolerated well with minimal blood loss. Lesion size :1.6 cm x 0.9 cm Chantal Wilson [facility]06-30-2023 NoteHNO ID: [id number] Author: Chantal Wilson MD Service: ? Author Type: Physician Type: Progress Notes Filed: 10/05/2022 3:12 PM Note Text: Chief Complaint Patient presents with: Lesion Removal HPI Jhon Cobb II is a 71 year old male who presents here today for excision of lesion on left forearm. Office visit - excision. At last appt patient was noted to have an abnormal growth on the left dorsal forearm. Office visit - neoplasm of uncertain behavior of skin on fore arm. Developed last week. Not tender unless pushed on hard. No increased erythema. No fevers or chills. No drainage. Past medical history, appointments, medications, allergies reviewed. Previous Medical History PAST MEDICAL HISTORY Diagnosis Date Advance directive discussed with patient 08/29/2021 Discussed 08/2021 Allergic rhinitis 02/06/2015 Arachnoid cyst 06/16/2019 left middle cranial fossa: Saw Neuro. No f/u unless symptoms develop. 09/2019 Benign non-nodular prostatic hyperplasia without lower urinary tract symptoms 02/06/2015 Carpal tunnel syndrome, bilateral 10/18/2019 NCS WCH: 10/2019 moderate in degree. 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 Primary insomnia 08/07/2015 Sciatica 09/22/2005 Previous Surgical History PAST SURGICAL HISTORY Procedure Laterality Date COLONOSCOPY FLX DX W/COLLJ SPEC WHEN PFRMD 01/10/2003 Colonoscopy COLONOSCOPY FLX DX W/COLLJ SPEC WHEN PFRMD 03/23/2016 Colonoscopy, repeat 10 yrs,, Dr. Dumas FISSURECTOMY INCL SPHINCTEROTOMY WHEN PERFORMED REMV CATARACT EXTRACAP,INSERT LENS Bilateral June and July 2022 RESECT SMALL INTEST,SINGL RESEC/ANAS 03/05/2021 SIGMOIDOSCOPY FLX DX W/COLLJ SPEC BR/WA IF PFRMD 12/07/2006 Family History FAMILY HISTORY Problem Relation Age of Onset Breast Cancer Mother Diabetes Mother Coronary Artery Disease Mother Hypertension Mother Hypertension Father Patient Allergies ALLERGIES Allergen Reactions Lipitor [Atorvastat* Other: See Comments Elevated LFT's Tavist [Clemastine] Unknown Current Medications Current Outpatient Medications on File Prior to Visit Medication Sig LORazepam (ATIVAN) 0.5 mg Once daily as needed. zolpidem (AMBIEN) 10 mg Take 1 tablet by mouth once daily as needed for up to 30 days. Tadalafil (CIALIS) 20 mg tab(s) Take 1 tablet by mouth once daily. As needed. citalopram (CELEXA) 20 mg tablet TAKE 1 TABLET EVERY DAY for anxiety busPIRone (BUSPAR) 15 mg tablet Take 1 tablet by mouth twice daily. loratadine-pseudoephedrine ER (CLARITIN-D 12 HOUR) 5-120 mg per tablet Take 1 tablet by mouth twice daily. Lactobacillus acidophilus (FLORAJEN ACIDOPHILUS) 20 billion cell cap Take 1 Each by mouth once daily. aspirin 81 mg cap Take 1 capsule by mouth once daily. No current facility-administered medications on file prior to visit. Social History Social History Tobacco Use Smoking status: Never Smokeless tobacco: Never Vaping Use Vaping Use: Never used Substance Use Topics Alcohol use: Yes Comment: occasionally Drug use: No Review of Symptoms REVIEW OF SYSTEMS See HPi EXAM: BP 148/84 (BP Site: Right Arm, BP Position: Sitting, BP Cuff Size: Regular Adult) Pulse 80 Resp 16 Wt 101.6 kg (224 lb) BMI 31.69 kg/m? General Appearance: Well appearing, alert, in no acute distress, well-hydrated, well nourished.. Skin: has a papule on the ventral left forearm with a center that is white in color and the surrounding edge red. No erythema out onto the skin. No fluctuance, warmth or tenderness. Health Maintenance List COVID-19 VACCINE(3 - Booster for Moderna series) due on 03/04/2023 DIABETES SCREEN due on 08/27/2025 COLORECTAL CANCER SCREENING due on 03/23/2026 LIPID SCREEN due on 08/28/2027 DTAP,TDAP,TD(4 - Td or Tdap) due on 05/27/2029 INFLUENZA Completed ADVANCE DIRECTIVE DISCUSSION Completed DEPRESSION ASSESSMENT Completed HEPATITIS C SCREENING Completed SHINGRIX VACCINE Completed PNEUMOCOCCAL: 65+ Completed Data reviewed A/P ASSESSMENT/PLAN: 1. Neoplasm of uncertain behavior of skin of forearm - ICD9: 238.2, ICD10: D48.5 - discussed excision biopsy and patient in agreement. - consent signed. - SURGICAL PATHOLOGY F/u suture removal 10-12 days or sooner if issues as discussed. Care sheet provided. Chantal Wilson, [facility]06-28-2023 NoteHNO ID: [id number] Author: Chantal Wilson MD Service: ? Author Type: Physician Type: Progress Notes Filed: 09/30/2022 4:35 PM Note Text: Chief Complaint Patient presents with: Mass HPI Jhon Cobb II is a 71 year old male who presents here today for bump on left forearm. Developed last week. Not tender unless pushed on hard. No increased erythema. No fevers or chills. No drainage. Past medical history, appointments, medications, allergies reviewed. Previous Medical History PAST MEDICAL HISTORY Diagnosis Date Advance directive discussed with patient 08/29/2021 Discussed 08/2021 Allergic rhinitis 02/06/2015 Arachnoid cyst 06/16/2019 left middle cranial fossa: Saw Neuro. No f/u unless symptoms develop. 09/2019 Benign non-nodular prostatic hyperplasia without lower urinary tract symptoms 02/06/2015 Carpal tunnel syndrome, bilateral 10/18/2019 NCS WCH: 10/2019 moderate in degree. Concussion wth loss of consciousness of 30 minutes or less 06/07/2019 Diverticulosis 06/13/2014 Elevated blood sugar 08/29/2021 Generalized anxiety disorder Anxiety, Generalized Irritable bowel syndrome without diarrhea 02/06/[address] 08/29/2021 DPA: Anabela () Kristopher 03/18/2005 Medicare annual wellness visit, subsequent 04/15/2017 Medicare part B: 10/03/2016 Last done: 04/25/2019 Mixed hyperlipidemia Non morbid obesity due to excess calories 09/30/2016 Perforation of intestine (HCC) 03/2021 from blockage. Primary insomnia 08/07/2015 Sciatica 09/22/2005 Previous Surgical History PAST SURGICAL HISTORY Procedure Laterality Date COLONOSCOPY FLX DX W/COLLJ SPEC WHEN PFRMD 01/10/2003 Colonoscopy COLONOSCOPY FLX DX W/COLLJ SPEC WHEN PFRMD 03/23/2016 Colonoscopy, repeat 10 yrs,, Dr. Dumas FISSURECTOMY INCL SPHINCTEROTOMY WHEN PERFORMED REMV CATARACT EXTRACAP,INSERT LENS Bilateral June and July 2022 RESECT SMALL INTEST,SINGL RESEC/ANAS 03/05/2021 SIGMOIDOSCOPY FLX DX W/COLLJ SPEC BR/WA IF PFRMD 12/07/2006 Family History FAMILY HISTORY Problem Relation Age of Onset Breast Cancer Mother Diabetes Mother Coronary Artery Disease Mother Hypertension Mother Hypertension Father Patient Allergies ALLERGIES Allergen Reactions Lipitor [Atorvastat* Other: See Comments Elevated LFT's Tavist [Clemastine] Unknown Current Medications Current Outpatient Medications on File Prior to Visit Medication Sig LORazepam (ATIVAN) 0.5 mg Once daily as needed. zolpidem (AMBIEN) 10 mg Take 1 tablet by mouth once daily as needed for up to 30 days. Tadalafil (CIALIS) 20 mg tab(s) Take 1 tablet by mouth once daily. As needed. citalopram (CELEXA) 20 mg tablet TAKE 1 TABLET EVERY DAY for anxiety busPIRone (BUSPAR) 15 mg tablet Take 1 tablet by mouth twice daily. loratadine-pseudoephedrine ER (CLARITIN-D 12 HOUR) 5-120 mg per tablet Take 1 tablet by mouth twice daily. Lactobacillus acidophilus (FLORAJEN ACIDOPHILUS) 20 billion cell cap Take 1 Each by mouth once daily. aspirin 81 mg cap Take 1 capsule by mouth once daily. No current facility-administered medications on file prior to visit. Social History Social History Tobacco Use Smoking status: Never Smokeless tobacco: Never Vaping Use Vaping Use: Never used Substance Use Topics Alcohol use: Yes Comment: occasionally Drug use: No Review of Symptoms REVIEW OF SYSTEMS See HPI EXAM: BP 142/86 (BP Site: Left Arm, BP Position: Sitting, BP Cuff Size: Regular Adult) Pulse 80 Temp 36.7 ?C (98 ?F) Resp 16 Wt 103 kg (227 lb) BMI 32.11 kg/m? General Appearance: Well appearing, alert, in no acute distress, well-hydrated, well nourished.. Skin: has a papule on the ventral left forearm with a center that is white in color and the surrounding edge red. No erythema out onto the skin. No fluctuance, warmth or tenderness. Health Maintenance List COVID-19 VACCINE(3 - Booster for Moderna series) due on 03/04/2023 DIABETES SCREEN due on 08/27/2025 COLORECTAL CANCER SCREENING due on 03/23/2026 LIPID SCREEN due on 08/28/2027 DTAP,TDAP,TD(4 - Td or Tdap) due on 05/27/2029 INFLUENZA Completed ADVANCE DIRECTIVE DISCUSSION Completed DEPRESSION ASSESSMENT Completed HEPATITIS C SCREENING Completed SHINGRIX VACCINE Completed PNEUMOCOCCAL: 65+ Completed Data reviewed A/P ASSESSMENT/PLAN: 1. 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 - will return for excisional biopsy this Wednesday. Chantal Wilson, [facility]06-28-2023 History of Present illness Narrative* Chantal Wilson MD - 09/30/2022 4:00 PM EDT Chief Complaint Patient presents with: Mass HPI Jhon Cobb II is a 71 year old male who presents here today for bump on left forearm. Developed last week. Not tender unless pushed on hard. No increased erythema. No fevers or chills. No drainage. Past medical history, appointments, medications, allergies reviewed. Previous Medical History PAST MEDICAL HISTORY Diagnosis Date Advance directive discussed with patient 08/29/2021 Discussed 08/2021 Allergic rhinitis 02/06/2015 Arachnoid cyst 06/16/2019 left middle cranial fossa: Saw Neuro. No f/u unless symptoms develop. 09/2019 Benign non-nodular prostatic hyperplasia without lower urinary tract symptoms 02/06/2015 Carpal tunnel syndrome, bilateral 10/18/2019 NCS WCH: 10/2019 moderate in degree. 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 Primary insomnia 08/07/2015 Sciatica 09/22/2005 Previous Surgical History PAST SURGICAL HISTORY Procedure Laterality Date COLONOSCOPY FLX DX W/COLLJ SPEC WHEN PFRMD 01/10/2003 Colonoscopy COLONOSCOPY FLX DX W/COLLJ SPEC WHEN PFRMD 03/23/2016 Colonoscopy, repeat 10 yrs,, Dr. Dumas FISSURECTOMY INCL SPHINCTEROTOMY WHEN PERFORMED REMV CATARACT EXTRACAP,INSERT LENS Bilateral June and July 2022 RESECT SMALL INTEST,SINGL RESEC/ANAS 03/05/2021 SIGMOIDOSCOPY FLX DX W/COLLJ SPEC BR/WA IF PFRMD 12/07/2006 Family History FAMILY HISTORY Problem Relation Age of Onset Breast Cancer Mother Diabetes Mother Coronary Artery Disease Mother Hypertension Mother Hypertension Father Patient Allergies ALLERGIES Allergen Reactions Lipitor [Atorvastat* Other: See Comments Elevated LFT's Tavist [Clemastine] Unknown Current Medications Current Outpatient Medications on File Prior to Visit Medication Sig LORazepam (ATIVAN) 0.5 mg Once daily as needed. zolpidem (AMBIEN) 10 mg Take 1 tablet by mouth once daily as needed for up to 30 days. Tadalafil (CIALIS) 20 mg tab(s) Take 1 tablet by mouth once daily. As needed. citalopram (CELEXA) 20 mg tablet TAKE 1 TABLET EVERY DAY for anxiety busPIRone (BUSPAR) 15 mg tablet Take 1 tablet by mouth twice daily. loratadine-pseudoephedrine ER (CLARITIN-D 12 HOUR) 5-120 mg per tablet Take 1 tablet by mouth twicedaily. Lactobacillus acidophilus (FLORAJEN ACIDOPHILUS) 20 billion cell cap Take 1 Each by mouth once daily. aspirin 81 mg cap Take 1 capsule by mouth once daily. No current facility-administered medications on file prior to visit. Social History Social History Tobacco Use Smoking status: Never Smokeless tobacco: Never Vaping Use Vaping Use: Never used Substance Use Topics Alcohol use: Yes Comment: occasionally Drug use: No Review of Symptoms REVIEW OF SYSTEMS See HPI EXAM: BP 142/86 (BP Site: Left Arm, BP Position: Sitting, BP Cuff Size: Regular Adult) Pulse 80 Temp 36.7 C (98 F) Resp 16 Wt 103 kg (227 lb) BMI 32.11 kg/m General Appearance: Well appearing, alert, in no acute distress, well-hydrated, well nourished.. Skin: has a papule on the ventral left forearm with a center that is white in color and the surrounding edge red. No erythema out onto the skin. No fluctuance, warmth or tenderness. Health Maintenance List COVID-19 VACCINE(3 - Booster for Moderna series) due on 03/04/2023 DIABETES SCREEN due on 08/27/2025 COLORECTAL CANCER SCREENING due on 03/23/2026 LIPID SCREEN due on 08/28/2027 DTAP,TDAP,TD(4 - Td or Tdap) due on 05/27/2029 INFLUENZA Completed ADVANCE DIRECTIVE DISCUSSION Completed DEPRESSION ASSESSMENT Completed HEPATITIS C SCREENING Completed SHINGRIX VACCINE Completed PNEUMOCOCCAL: 65+ Completed Data reviewed A/P ASSESSMENT/PLAN: 1. 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 - will return for excisional biopsy this Wednesday. Chantal Wilson MD documented in this encounterAcmc [facility] System06-08-2023 NoteHNO ID: [id number] Author: Chantal Wilson MD Service: ? Author Type: Physician Type: Progress Notes Filed: 09/10/2022 8:40 PM Note Text: Medicare Yearly Visit Medical B eligibilty date 10/03/2016 Date of last exam 08/29/2021 PAST MEDICAL HISTORY PAST MEDICAL HISTORY Diagnosis Date Allergic rhinitis 02/06/2015 Allergic rhinitis, cause unspecified Allergic rhinitis Benign non-nodular prostatic hyperplasia without lower urinary tract symptoms 02/06/2015 Diverticulitis of colon (without mention of hemorrhage)(562.11) Diverticulosis 06/13/2014 Diverticulosis of colon (without mention of hemorrhage) Generalized anxiety disorder Anxiety, Generalized Irritable bowel syndrome without diarrhea 02/06/2015 Lumbago 03/18/2005 Mixed hyperlipidemia Non morbid obesity due to excess calories 09/30/2016 Other and unspecified hyperlipidemia Primary insomnia 08/07/2015 Sciatica 09/22/2005 PAST SURGICAL HISTORY PAST SURGICAL HISTORY Procedure Laterality Date COLONOSCOP W/ OR W/O [facility] SPEC 01/10/2003 Colonoscopy COLONOSCOP W/ OR W/O [facility] SPE[facility] 03/23/2016 Colonoscopy, repeat 10 yrs,, Dr. Dumas FISSURECTOMY W/SPINCTEROTOMY SIGMOIDOSCOPY FLEX DIAG 12/07/06 Lipitor [Atorvastatin Calcium]; Tavist [Clemastine] Medications reviewed: No FAMILY HISTORY FAMILY HISTORY Problem Relation Age of Onset Breast Cancer Mother Hypertension Father Diabetes Mother Coronary Artery Disease Mother Hypertension Mother SOCIAL HISTORY: Social History Marital status: Spouse name: Amy Years of education: Number of children: 3 Occupational History Occupation Employer Comment [employer] Social History Main Topics Smoking status: Never Smoker Smokeless tobacco: Never Used Alcohol use: Yes Comment: occasionally Drug use: No Social History Narrative OARRS report run. Juan J Walker MD March 31, 2011 1:06 PM Jhon works out regularly 5 times per week with walking on treadmill, light weights and cardio work out. He watches his diet for sodium, low fat and low cholesterol most of the time. List of current specialists seen: optho End of Live Planning discussed including patients advanced directive wishes: Yes I am willing to follow Jhon's advanced directives. Depression screen Depression Screening 04/20/2018 08/29/2021 03/04/2022 09/10/2022 PHQ-2 Score 0 0 0 0 Depression screening tool completed and reviewed. Based on score and interview, patient is not at risk for depression. Screening tool discussed with patient, and I recommended no further intervention at this time. Functional Ability/Safety Screen 1. Was the patient's timed Up and Go test unsteady or longer than 30 seconds? No 2. Does the patient need help with the phone, transportation, shopping,preparing meals, housework, laundry, medications or managing money? No 3. Does your home have rugs in the hallway(Y), lack of grab bars in the bathroom(Y), lack of handrails on the stairs or have poor lighting? No Hearing Evaluation: hard of hearing and wears hearing aids PHYSICAL EXAM BP 116/78 (BP Site: Left Arm, BP Position: Sitting, BP Cuff Size: Large Adult) Pulse 62 Resp 16 Ht 179.1 cm (5' 10.5 ) Wt 103 kg (227 lb) BMI 32.11 kg/m? Alert and oriented X 3: YES Body mass index is 32.11 kg/m?. Visual acuity: sees optho See below ASSESSMENT/PLAN: 71 year old male The following prevention plan was discussed during the office visit and provided to the patient: See below Chantal Wilson MD Chief Complaint Patient presents with: Medicare Wellness Exam HPI Jhon Cobb II is a 71 year old male who presents here today for Chronic Medical Conditions. and Medicare Annual Visit. Office visit - medicare wellness Patient with Hx of Hyperlipidemia, general anxiety, obesity, Arachnoid cyst, insomnia, allergic rhinitis as well as those reviewed and addressed below and in review of systems. Patient has been having difficulty with erections. Office visit - 6 month follow up 02/2022 Patient with Hx of Hyperlipidemia, general anxiety, obesity, Arachnoid cyst, insomnia, allergic rhinitis as well as those reviewed and addressed below and in review of systems. Patient continues to do well with the celexa and buspar. Takes a ativan on occasion last refill was 05/2021 for 30 tabs. Ambien continues to be helpful with falling asleep. Past medical history, appointments, medications, allergies reviewed. Previous Medical History PAST MEDICAL HISTORY Diagnosis Date Advance directive discussed with patient 08/29/2021 Discussed 08/2021 Allergic rhinitis 02/06/2015 Arachnoid cyst 06/16/2019 left middle cranial fossa: Saw Neuro. No f/u unless symptoms develop. 09/2019 Benign non-nodular prostatic hyperplasia without lower urinary tract symptoms 02/06/2015 Carpal tunnel syndrome, bilateral 10/18/2019 NCS WCH: 10/2019 moderate in degree. Concussion wth loss of consci (more content not included)...[facility]05-01-2023 Miscellaneous Notes* Telephone Encounter - Chantal Wilson MD - 08/03/2022 11:38 AM EDT The following approved medication requests have been transmitted electronically. Requested Prescriptions Signed Prescriptions Disp Refills citalopram (CELEXA) 20 mg tablet 90 tablet 1 Sig: TAKE 1 TABLET EVERY DAY for anxiety Authorizing Provider: CHANTAL WILSON busPIRone (BUSPAR) 15 mg tablet 180 tablet 1 Sig: Take 1 tablet by mouth twice daily. Authorizing Provider: CHANTAL WILSON zolpidem (AMBIEN) 10 mg 30 tablet 0 Sig: Take 1 tablet by mouth once daily as needed for up to 30 days. Do not start before August 11, 2022. Authorizing Provider: CHANTAL WILSON MD PDMP website checked and validated. All prescriptions have been APPROPRIATELY filled. No suspiciousactivity was identified. 08/03/2022 by Chantal Wilson MD * Telephone Encounter - Deborah Ferrell LPN - 08/03/2022 11:08 AM EDT Patient phones requesting refills as follows: Requested Prescriptions Pending Prescriptions Disp Refills citalopram (CELEXA) 20 mg tablet 90 tablet 1 Sig: TAKE 1 TABLET EVERY DAY for anxiety busPIRone (BUSPAR) 15 mg tablet 180 tablet 1 Sig: Take 1 tablet by mouth twice daily. zolpidem (AMBIEN) 10 mg 30 tablet 0 Sig: Take 1 tablet by mouth once daily as needed for up to 30 days. RYDER-03/04/22 Labs-02/12/22 NOV-09/08/22 Please review and advise. Deborah Ferrell LPN documented in this encounterAcmc Healthcare System04-06-2023 Miscellaneous Notes* Telephone Encounter - Chantal Wilson MD - 07/09/2022 3:41 PM EDT The following approved medication requests have been transmitted electronically. Requested Prescriptions Signed Prescriptions Disp Refills loratadine-pseudoephedrine ER (CLARITIN-D 12 HOUR) 5-120 mg per tablet 60 tablet 5 Sig: Take 1 tablet by mouth twice daily. Authorizing Provider: CHANTAL WILSON zolpidem (AMBIEN) 10 mg 30 tablet 0 Sig: Take 1 tablet by mouth once daily as needed for up to 30 days. Do not start before July 12, 2022. Authorizing Provider: CHANTAL WILSON Refused Prescriptions Disp Refills Lactobacillus acidophilus (FLORAJEN ACIDOPHILUS) 20 billion cell cap 30 capsule 5 Sig: Take 1 Each by mouth once daily. Refused By: ADRIANA PEREZ MA Reason for Refusal: Records indicate that there is a valid prescription at the pharmacy Chantal Wilson MD PDMP website checked and validated. All prescriptions have been APPROPRIATELY filled. No suspiciousactivity was identified. 07/09/2022 by Chantal Wilson MD * Telephone Encounter - Adriana Perez Ma - 07/09/2022 8:53 AM EDT Patient last visit with PCP 09/08/22 Follow up appointment scheduled 03/04/22 Adriana Perez Ma documented in this encounterAcmc Healthcare System04-06-2023 Miscellaneous Notes* Telephone Encounter - Chantal Wilson MD - 07/09/2022 3:40 PM EDT The following approved medication requests have been transmitted electronically. Requested Prescriptions Signed Prescriptions Disp Refills LORazepam (ATIVAN) 0.5 mg 30 tablet 0 Sig: Once daily as needed. Authorizing Provider: CHANTAL WILSON MD PDMP website checked and validated. All prescriptions have been APPROPRIATELY filled. No suspiciousactivity was identified. 07/09/2022 by Chantal Wilson MD * Telephone Encounter - Adriana Perez Ma - 07/09/2022 8:45 AM EDT Patient last visit with PCP 03/04/22 Follow up appointment scheduled 09/08/22 Adriana Perez Ma documented in this encounterAcmc Healthcare System03-10-2023 Miscellaneous Notes* Telephone Encounter - Tiki Vines PA-C - 06/12/2022 11:33 AM EST The following approved medication requests have been transmitted electronically. Requested Prescriptions Signed Prescriptions Disp Refills Lactobacillus acidophilus (FLORAJEN ACIDOPHILUS) 20 billion cell cap 30 capsule 5 Sig: Take 1 Each by mouth once daily. Authorizing Provider: TIKI VINES zolpidem (AMBIEN) 10 mg 30 tablet 0 Sig: Take 1 tablet by mouth once daily as needed for up to 30 days. Authorizing Provider: TIKI VINES PA-C * Telephone Encounter - Margaret Tesfaye MA - 06/12/2022 8:04 AM EST Patient has been identified by name and date of : Yes Requested Prescriptions Pending Prescriptions Disp Refills Lactobacillus acidophilus (FLORAJEN ACIDOPHILUS) 20 billion cell cap 30 capsule 5 Sig: Take 1 Each by mouth once daily. zolpidem (AMBIEN) 10 mg 30 tablet 0 Sig: Take 1 tablet by mouth once daily as needed for up to 30 days. RX INSTRUCTIONS: Patient aware RX will be sent to pharmacy. No need to notify patient. Margaret Tesfaye MA Ryder: 02/2022 Nov: 09/2022 Last refill: 02/2022 documented in this encounterAcmc Healthcare System01-23-2023 Miscellaneous Notes* Telephone Encounter - Raeann Boo LPN - 04/27/2022 3:12 PM EST Spoke with pt and information listed below given. Pt verbalizes understanding. Raeann Boo LPN * Telephone Encounter - Chantal Wilson MD - 04/27/2022 12:27 PM EST Let patient know his Claritin was refilled on 04/03/2022 for 30 days [facility] He just needs to call the pharmacy to have them refill it. The following approved medication requests have been transmitted electronically. Requested Prescriptions Signed Prescriptions Disp Refills zolpidem (AMBIEN) 10 mg 30 tablet 0 Sig: Take 1 tablet by mouth once daily as needed for up to 30 days. Do not start before April. Authorizing Provider: CHANTAL WILSON MD * Telephone Encounter - Margaret Tesfaye MA - 04/27/2022 7:32 AM EST Patient has been identified by name and date of : Yes Requested Prescriptions Pending Prescriptions Disp Refills zolpidem (AMBIEN) 10 mg 30 tablet 0 Sig: Take 1 tablet by mouth once daily as needed for up to 30 days. loratadine-pseudoephedrine ER (CLARITIN-D 12 HOUR) 5-120 mg per tablet 60 tablet 5 Sig: Take 1 tablet by mouth twice daily. RX INSTRUCTIONS: Patient aware RX will be sent to pharmacy. No need to notify patient. Margaret Tesfaye MA [place]; 02/2022 Nov: 09/2022 Last refill; 03/2022 documented in this encounterAcmc Healthcare System01-23-2023 Miscellaneous Notes* Telephone Encounter - Crystal Villareal LPN - 04/27/2022 7:23 AM EST Pt still has refills avail at the pharmacy. Pt notified via [facility] Crystal Villareal LPN documented in this encounterAcmc Healthcare System12-30-2022 Miscellaneous Notes* Telephone Encounter - Tiki Vines PA-C - 04/03/2022 8:12 AM EST The following approved medication requests have been transmitted electronically. Requested Prescriptions Signed Prescriptions Disp Refills zolpidem (AMBIEN) 10 mg 30 tablet 0 Sig: Take 1 tablet by mouth once daily as needed for up to 30 days. Authorizing Provider: TIKI VINES loratadine-pseudoephedrine ER (CLARITIN-D 12 HOUR) 5-120 mg per tablet 60 tablet 5 Sig: Take 1 tablet by mouth twice daily. Authorizing Provider: TIKI VINES PA-C * Telephone Encounter - Margaret Tesfaye MA - 04/02/2022 2:39 PM EST Patient has been identified by name and date of : Yes Requested Prescriptions Pending Prescriptions Disp Refills zolpidem (AMBIEN) 10 mg 30 tablet 0 Sig: Take 1 tablet by mouth once daily as needed for up to 30 days. loratadine-pseudoephedrine ER (CLARITIN-D 12 HOUR) 5-120 mg per tablet 60 tablet 5 Sig: Take 1 tablet by mouth twice daily. RX INSTRUCTIONS: Patient aware RX will be sent to pharmacy. No need to notify patient. Margaret Tesfaye MA [place]: 02/2022 Nov: 09/2022 Last refill: 03/01/2022 documented in this encounterAcmc Healthcare System11-30-2022 Instructions* Patient Instructions* Chantal Wilson MD - 03/04/2022 10:45 AM EST Consider taking a B Complex vitamin. Please get labs and urine test done on or after 08/21/2022 prior to your next visit. documented in this encounterAcmc Healthcare System11-30-2022 History of Present illness Narrative* Chantal Wilson MD - 03/04/2022 10:40 AM EST Chief Complaint Patient presents with: F/U 6 months HPI Jhon Cobb II is a 71 year old male who presents here today for 6 month follow up. Patient with Hx of Hyperlipidemia, general anxiety, obesity, Arachnoid cyst, insomnia, allergic rhinitis as well as those reviewed and addressed below and in review of systems. Patient continues to do well with the celexa and buspar. Takes a ativan on occasion last refill was05/2021 for 30 tabs. Ambien continues to be helpful with falling asleep. Past medical history, appointments, medications, allergies reviewed. Previous Medical History PAST MEDICAL HISTORY Diagnosis Date Advance directive discussed with patient 08/29/2021 Discussed 08/2021 Allergic rhinitis 02/06/2015 Arachnoid cyst 06/16/2019 left middle cranial fossa: Saw Neuro. No f/u unless symptoms develop. 09/2019 Benign non-nodular prostatic hyperplasia without lower urinary tract symptoms 02/06/2015 Carpal tunnel syndrome, bilateral 10/18/2019 NCS WCH: 10/2019 moderate in degree. 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 Primary insomnia 08/07/2015 Sciatica 09/22/2005 Previous Surgical History PAST SURGICAL HISTORY Procedure Laterality Date COLONOSCOPY FLX DX W/COLLJ SPEC WHEN PFRMD 01/10/2003 Colonoscopy COLONOSCOPY FLX DX W/COLLJ SPEC WHEN PFRMD 03/23/2016 Colonoscopy, repeat 10 yrs,, Dr. Dumas FISSURECTOMY INCL SPHINCTEROTOMY WHEN PERFORMED RESECT SMALL INTEST,SINGL RESEC/ANAS 03/05/2021 SIGMOIDOSCOPY FLX DX W/COLLJ SPEC BR/WA IF PFRMD 12/07/2006 Family History FAMILY HISTORY Problem Relation Age of Onset Breast Cancer Mother Diabetes Mother Coronary Artery Disease Mother Hypertension Mother Hypertension Father Patient Allergies ALLERGIES Allergen Reactions Lipitor [Atorvastat* Other: See Comments Elevated LFT's Tavist [Clemastine] Unknown Current Medications Current Outpatient Medications on File Prior to Visit Medication Sig Lactobacillus acidophilus (FLORAJEN ACIDOPHILUS) 20 billion cell cap Take 1 Each by mouth once daily. zolpidem (AMBIEN) 10 mg Take 1 tablet by mouth once daily as needed for up to 30 days. loratadine-pseudoephedrine ER (CLARITIN-D 12 HOUR) 5-120 mg per tablet Take 1 tablet by mouth twicedaily. citalopram (CELEXA) 20 mg tablet TAKE 1 TABLET EVERY DAY for anxiety busPIRone (BUSPAR) 15 mg tablet Take 1 tablet by mouth twice daily. aspirin 81 mg cap Take 1 capsule by mouth once daily. LORazepam (ATIVAN) 0.5 mg Once daily as needed. pantoprazole DR (PROTONIX) 40 mg tablet Take 1 tablet by mouth once daily for 20 days. (Patient nottaking: Reported on 05/29/2021 ) No current facility-administered medications on file prior to visit. Social History Social History Tobacco Use Smoking status: Never Smokeless tobacco: Never Vaping Use Vaping Use: Never used Substance Use Topics Alcohol use: Yes Comment: occasionally Drug use: No Review of Symptoms REVIEW OF SYSTEMS GENERAL: No weight loss, malaise or fevers NECK: Negative for lumps, goiter, pain and significant neck swelling RESPIRATORY: Negative for cough, hemoptysis, wheezing, COPD, dyspnea or shortness of breath CARDIOVASCULAR: Negative for chest pain, leg swelling, hypertension, CHF or palpitations GI: No nausea, vomiting, or diarrhea PSYCH: Negative for sleep disturbance, mood disorder and recent psychosocial stressors, See HPI NEURO: No history of syncope, paralysis, seizures or tremors. Some sinus headaches. EXAM: BP 142/96 (BP Site: Left Arm, BP Position: Sitting, BP Cuff Size: Large Adult) Pulse 76 Resp 16 Wt 102.1 kg (225 lb) BMI 31.83 kg/m BP 116/82 Pulse 76 Resp 16 Wt 102.1 kg (225 lb) BMI 31.83 kg/m Last 5 Encounter Wt Readings: Date: Wt: 03/04/2022 102.1 kg (225 lb) 08/29/2021 98.9 kg (218 lb) 05/26/2021 102.5 kg (226 lb) 03/24/2021 98 kg (216 lb) 03/18/2021 97.5 kg (215 lb) General Appearance: Well appearing, alert, in no acute distress, well-hydrated, well nourished. andObese. Neck: Supple, no adenopathy; thyroid symmetric, normal size, no bruits. Lungs: Lungs clear to auscultation. No wheezing, rhonchi, rales.. Heart: RRR without murmur, gallop, or rubs. No ectopy. Abdomen: Normal abdominal exam, Abdomen soft, non-tender. Bowel sounds normal. No masses, organomegaly. Extremities: No deformities, edema, skin discoloration, Good capillary refill. . Peripheral Pulses: Normal. Health Maintenance List COVID-19 VACCINE(3 - Booster for Moderna series) due on 08/28/2020 DEPRESSION ASSESSMENT Never done DIABETES SCREEN due on 02/12/2025 COLORECTAL CANCER SCREENING due on 03/23/2026 LIPID SCREEN due on 02/12/2027 DTAP,TDAP,TD(4 - Td or Tdap) due on 05/27/2029 INFLUENZA Completed ADVANCE DIRECTIVE DISCUSSION Completed HEPATITIS C SCREENING Completed SHINGRIX VACCINE Completed PNEUMOCOCCAL: 65+ Completed Data reviewed Component Latest Ref Rng & Units 04/26/2020 05/27/2021 02/12/2022 Protein, Total 6.3 - 8.0 g/dL 6.7 Albumin 3.9 - 4.9 g/dL 3.9 Calcium 8.5 - 10.2 mg/dL 8.8 Bilirubin, Total 0.2 - 1.3 mg/dL 0.5 Alkaline Phosphatase 38 - 113 U/L 113 AST 14 - 40 U/L 17 Glucose 74 - 99 mg/dL 104 (H) BUN 9 - 24 mg/dL 10 Creatinine 0.73 - 1.22 mg/dL 0.85 Sodium 136 - 144 mmol/L 136 Potassium 3.7 - 5.1 mmol/L 4.1 Chloride 97 - 105 mmol/L 100 CO2 22 - 30 mmol/L 27 Anion Gap 9 - 18 mmol/L 9 ALT 10 - 54 U/L 11 eGFR- >60 eGFR-All Other Races . >60 Total Cholesterol, Nonfasting <200 mg/dL 207 (H) 200 (H) 178 Triglycerides, Nonfasting <150 mg/dL 89 87 50 HDL Cholesterol, Nonfasting >39 mg/dL 49 52 56 LDL Cholesterol, Nonfasting <100 mg/dL 140 (H) 131 (H) 112 (H) Non HDL Cholesterol, Nonfasting <130 mg/dL 158 (H) 148 (H) 122 VLDL Cholesterol, Nonfasting <30 mg/dL 18 17 10 Total Chol/HDL Ratio, Nonfasting <5.10 mg/dL 4.22 3.85 3.18 LDL/HDL Ratio, Nonfasting <2.54 mg/dL 2.86 (H) 2.52 2.00 Hemoglobin A1C 4.3 - 5.6 % 5.6 Estimated Average Glucose mg/dL 114 PSA <2.60 ng/mL 1.99 A/P ASSESSMENT/PLAN: 1. Mixed hyperlipidemia - ICD9: 272.2, ICD10: E78.2 (primary diagnosis) - good control - Encouraged following a low fat, low cholesterol diet. - Discussed the benefits of regular aerobic exercise and weight loss. - Encouraged following a low carbohydrate, healthy oil intake diet. - Continue current therapy. 2. Generalized anxiety disorder - ICD9: 300.02, ICD10: F41.1 - stable with current Tx and prn use of Ativan. - LORAZEPAM 0.5 MG TABLET 3. Elevated blood sugar - ICD9: 790.29, ICD10: R73.9 - controlled with life style changes. 4. Primary insomnia - ICD9: 307.42, ICD10: F51.01 - controlled with Ambien. 5. Non morbid obesity due to excess calories - ICD9: 278.00, ICD10: E66.09 Weight increasing - Behavioral intervention Requested Prescriptions Signed Prescriptions Disp Refills loratadine-pseudoephedrine ER (CLARITIN-D 12 HOUR) 5-120 mg per tablet 60 tablet 5 Sig: Take 1 tablet by mouth twice daily. citalopram (CELEXA) 20 mg tablet 90 tablet 1 Sig: TAKE 1 TABLET EVERY DAY for anxiety busPIRone (BUSPAR) 15 mg tablet 180 tablet 1 Sig: Take 1 tablet by mouth twice daily. LORazepam (ATIVAN) 0.5 mg 30 tablet 0 Sig: Once daily as needed. PDMP website checked and validated. All prescriptions have been APPROPRIATELY filled. No suspiciousactivity was identified. 03/04/2022 by Chantal Wilson MD F/u 6 months extensive check CMP, Lipid, UA, A1c, CBC, and PSA prior Chantal Wilson MD [facility] Miscellaneous Notes* Telephone Encounter - Chantal Wilson MD - 03/01/2022 12:08 PM EST The following approved medication requests have been transmitted electronically. Requested Prescriptions Signed Prescriptions Disp Refills zolpidem (AMBIEN) 10 mg 30 tablet 0 Sig: Take 1 tablet by mouth once daily as needed for up to 30 days. Authorizing Provider: CHANTAL WILSON MD PDMP website checked and validated. All prescriptions have been APPROPRIATELY filled. No suspiciousactivity was identified. 03/01/2022 by Chantal Wilson MD * Telephone Encounter - George Lora LPN - 02/28/2022 9:05 AM EST Patient phones requesting refills as follows: Requested Prescriptions Pending Prescriptions Disp Refills zolpidem (AMBIEN) 10 mg 30 tablet 0 Sig: Take 1 tablet by mouth once daily as needed for up to 30 days. RYDER 08/29/21 NOV 03/04/22 Please review and advise. George Lora LPN documented in this encounterA[facility]11-21-2022 Miscellaneous Notes* Telephone Encounter - Chantal Wilson MD - 02/23/2022 5:25 PM EST The following approved medication requests have been transmitted electronically. Requested Prescriptions Signed Prescriptions Disp Refills Lactobacillus acidophilus (FLORAJEN ACIDOPHILUS) 20 billion cell cap 30 capsule 5 Sig: Take 1 Each by mouth once daily. Authorizing Provider: CHANTAL WILSON MD * Telephone Encounter - Margaret Tesfaye MA - 02/23/2022 5:11 PM EST Patient has been identified by name and date of : Yes Requested Prescriptions Pending Prescriptions Disp Refills Lactobacillus acidophilus (FLORAJEN ACIDOPHILUS) 20 billion cell cap 30 capsule 4 Sig: Take 1 Each by mouth once daily. RX INSTRUCTIONS: Patient aware RX will be sent to pharmacy. No need to notify patient. Margaret Tesfaye MA Ryder: 08/2021 Nov: 02/2022 Last refill; 09/2021 documented in this encounterA[facility]10-25-2022 Miscellaneous Notes* Telephone Encounter - Raeann Boo LPN - 01/27/2022 8:01 AM EDT Patient has been identified by name and date of : Yes Patient phones for refill(s): Requested Prescriptions Pending Prescriptions Disp Refills zolpidem (AMBIEN) 10 mg 30 tablet 0 Sig: Take 1 tablet by mouth once daily as needed for up to 30 days. Date of last office visit in primary care: 08.29.21 next apt 03/04/22 Last 2 Encounter Wt Readings: Date: Wt: 08/29/2021 98.9 kg (218 lb) 05/26/2021 102.5 kg (226 lb) Previous labs/tests for medication: Not applicable Thank you. Raeann Boo LPN documented in this [facility]09-26-2022 Miscellaneous Notes* Telephone Encounter - Frederick Lanza LPN - 12/29/2021 11:25 AM EDT This was refilled today. Frederick Lanza LPN documented in this [facility]-26-2022 Miscellaneous Notes* Telephone Encounter - Tiki Vines PA-C - 12/29/2021 11:11 AM EDT The following approved medication requests have been transmitted electronically. Requested Prescriptions Signed Prescriptions Disp Refills zolpidem (AMBIEN) 10 mg 30 tablet 0 Sig: Take 1 tablet by mouth once daily as needed for up to 30 days. Authorizing Provider: TIKI VINES PA-C PDMP website checked and validated. All prescriptions have been APPROPRIATELY filled. No suspiciousactivity was identified. 12/29/2021 by Tiki Vines PA-C * Telephone Encounter - Frederick Lanza LPN - 12/29/2021 8:09 AM EDT Last refill 11/29/21 Qty: 30 with 0 refills RYDER 08/29/21 NOV 03/04/22 Frederick Lanza LPN documented in this encounterA[facility]08-25-2022 Miscellaneous Notes* Telephone Encounter - Chantal Wilson MD - 11/27/2021 4:31 PM EDT The following approved medication requests have been transmitted electronically. Requested Prescriptions Signed Prescriptions Disp Refills zolpidem (AMBIEN) 10 mg 30 tablet 0 Sig: Take 1 tablet by mouth once daily as needed for up to 30 days. Do not start before November 29, 2021. Authorizing Provider: CHANTAL WILSON MD PDMP website checked and validated. All prescriptions have been APPROPRIATELY filled. No suspiciousactivity was identified. 11/27/2021 by Chantal Wilson MD * Telephone Encounter - Paola Sykes Ma - 11/27/2021 4:05 PM EDT Last office visit: 08/29/21 F/u scheduled: 03/04/22 Last refilled on: Ambien #30 with 0 refill on 10/30/21 Paola Sykes Ma documented in this encounterA[facility]06-29-2022 Miscellaneous Notes* Telephone Encounter - Frederick Lanza LPN - 10/01/2021 7:39 AM EDT This is being addressed in additional refill encounter. Frederick Lanza LPN documented in this encounterA[facility] System06-29-2022 Miscellaneous Notes* Telephone Encounter - Frederick Lanza LPN - 10/01/2021 7:34 AM EDT Last refill Ambien 09/02/21 Qty: 30 with 0 refills Last refill Florajen Acidophilus 05/26/21 Qty: 30 with 4 refills RYDER 08/29/21 NOV 03/04/22 Frederick Lanza LPN documented in this encounterA[facility]05-31-2022 Miscellaneous Notes* Telephone Encounter - Crystal Zaragoza LPN - 09/02/2021 8:28 AM EDT Patient phones requesting refills as follows: Pending Prescriptions Disp Refills ZOLPIDEM 10 MG TABLET 30 tablet 0 Sig: Take 1 tablet by mouth once daily as needed for up to 30 days. BRITTANY Class: C-IV YOANNA: No RYDER 08/29/21 03/04/22 Please review and advise. Crystal Zaragoza LPN documented in this encounterA[facility] System05-27-2022 Miscellaneous Notes* Telephone Encounter - Frederick Lanza LPN - 08/29/2021 12:02 PM EDT Immunization record updated. Frederick Lanza LPN documented in this encounterA[facility]05-02-2022 Miscellaneous Notes* Telephone Encounter - Chantal Wilson MD - 08/04/2021 8:35 AM EDT The following approved medication requests have been transmitted electronically. Signed Prescriptions Disp Refills zolpidem (AMBIEN) 10 mg 30 tablet 0 Sig: Take 1 tablet by mouth once daily as needed for up to 30 days. BRITTANY Class: C-IV YOANNA: No Authorizing Provider: CHANTAL WILSON loratadine-pseudoephedrine ER (CLARITIN-D 12 HOUR) 5-120 mg per tablet 60 tablet 1 Sig: Take 1 tablet by mouth twice daily. YOANNA: No Authorizing Provider: CHANTAL WILSON MD PDMP website checked and validated. All prescriptions have been APPROPRIATELY filled. No suspiciousactivity was identified. 08/04/2021 by Chantal Wilson MD * Telephone Encounter - Frederick Lanza LPN - 08/04/2021 8:16 AM EDT Last refill Ambien 06/23/21 Qty: 30 with 0 refills Last refill Claritin- D 12 Hour 06/23/21 Qty: 60 with 1 refill Pt has appt 08/29/21 Frederick Lanza LPN [facility] [place] [facility] Diagnosis Primary insomnia Persistent disorder of initiating or maintaining sleep documented in this encounter [facility] note* Diagnosis Primary insomnia Persistent disorder of initiating or maintaining sleep [facility] [place] [facility]* Diagnosis Cellulitis of left elbow [facility] [place] [facility]* Diagnosis Primary insomnia Persistent disorder of initiating or maintaining sleep Cellulitis of left elbow [facility] [place] [facility]* Diagnosis Primary insomnia Persistent disorder of initiating or maintaining sleep [facility] [place] [facility]* Diagnosis Primary insomnia Persistent disorder of initiating or maintaining sleep [facility] [place] [facility]* Diagnosis Cellulitis of left elbow documented in this encounter [facility] note* Diagnosis Primary insomnia Persistent disorder of initiating or maintaining sleep Encounter for immunization- Primary Need for other specified prophylactic vaccination against single bacterial disease documented in this encounter [facility] note* Diagnosis Mixed hyperlipidemia- Primary Generalized anxiety disorder Elevated blood sugar Other abnormal glucose Primary insomnia Persistent disorder of initiating or maintaining sleep Non morbid obesity due to excess calories Prostate disorder Unspecified disorder of prostate Medication management Encounter for long-term (current) use of other medications [facility] [place] [facility]* Diagnosis Primary insomnia Persistent disorder of initiating or maintaining sleep [facility] [place] [facility]* Diagnosis Cellulitis of left elbow [facility] [place] [facility]* Diagnosis Primary insomnia Persistent disorder of initiating or maintaining sleep [facility] [place] [facility]* Diagnosis Cellulitis of left elbow Primary insomnia Persistent disorder of initiating or maintaining sleep [facility] [place] [facility]* Diagnosis Cellulitis of left elbow Primary insomnia Persistent disorder of initiating or maintaining sleep [facility] [place] [facility]* Diagnosis Generalized anxiety disorder [facility] [place] [facility]* Diagnosis Neoplasm of uncertain behavior of skin of forearm- Primary Neoplasm of uncertain behavior of skin [facility] [place] [facility]* Diagnosis Squamous cell skin cancer- Primary Squamous cell carcinoma of skin, site unspecified [facility] [place] [facility]* Diagnosis Paronychia of great toe- Primary Generalized anxiety disorder Incisional hernia without obstruction or gangrene documented [facility] [place] [facility]* Diagnosis Cellulitis of left elbow [facility] [place] [facility]* Diagnosis Primary insomnia Persistent disorder of initiating or maintaining sleep [facility] [place] [facility]* Diagnosis Primary insomnia Persistent disorder of initiating or maintaining sleep [facility] [place] [facility]* Diagnosis S/P hernia repair- Primary Other postprocedural status documented [facility] [place] [facility]* Diagnosis Primary insomnia Persistent disorder of initiating or maintaining sleep [facility] [place] [facility]* Diagnosis Primary insomnia Persistent disorder of initiating or maintaining sleep [facility] [place] [facility]* Diagnosis Primary insomnia Persistent disorder of initiating or maintaining sleep [facility] [place] [facility]* Diagnosis Primary insomnia Persistent disorder of initiating or maintaining sleep [facility] [place] [facility]* Diagnosis Generalized anxiety disorder [facility] [place] [facility]* Diagnosis Mixed hyperlipidemia- Primary Elevated blood sugar Other abnormal glucose Generalized anxiety disorder Primary insomnia Persistent disorder of initiating or maintaining sleep Obesity, Class I, BMI 30-34.9 Obesity, unspecified Medication management Encounter for long-term (current) use of other medications Prostate disorder Unspecified disorder of prostate [facility] Advance Directives No Advanced Directives Records FoundDocuments on File Type Date Recorded Patient Assurance Senior Manager Expl anation Advance Directive(s) 03/23/2016 8:13 AM Advance Directive(s) 03/16/2016 2:37 PM Summary Purpose Family History No Family History Records FoundNo Family History Records Found Additional Source Comments Source Comments (unrecognize d section and content) In the event this informatio n is protected by the Federal Confidentiality of Alcohol and Drug Abuse Patient Records regulations: The Federal rules restrict any use of the information to criminally investigate or prosecute any alcohol or drug abuse patient.[facility] SystemIn the event this information is protected by the Federal Confidentiality of Alcohol and Drug Abuse Patient Records regulations: The Federal rules restrict any use of the information to criminally investigate or prosecute any alcohol or drug abuse patient.[facility] SystemIn the event this information is protected by the Federal Confidentiality of Alcohol and Drug Abuse Patient Records regulations: The Federal rules restrict any use of the information to criminally investigate or prosecute any alcohol or drug abuse patient.[facility] SystemIn the event this information is protected by the Federal Confidentiality of Alcohol and Drug Abuse Patient Records regulations: The Federal rules restrict any use of the information to criminally investigate or prosecute any alcohol or drug abuse patient.[facility] SystemIn the event this information is protected by the Federal Confidentiality of Alcohol and Drug Abuse Patient Records regulations: The Federal rules restrict any use of the information to criminally investigate or prosecute any alcohol or drug abuse patient.[facility] SystemIn the event this information is protected by the Federal Confidentiality of Alcohol and Drug Abuse Patient Records regulations: The Federal rules restrict any use of the information to criminally investigate or prosecute any alcohol or drug abuse patient.[facility] SystemIn the event this information is protected by the Federal Confidentiality of Alcohol and Drug Abuse Patient Records regulations: The Federal rules restrict any use of the information to criminally investigate or prosecute any alcohol or drug abuse patient.[facility] SystemIn the event this information is protected by the Federal Confidentiality of Alcohol and Drug Abuse Patient Records regulations: The Federal rules restrict any use of the information to criminally investigate or prosecute any alcohol or drug abuse patient.[facility] SystemIn the event this information is protected by the Federal Confidentiality of Alcohol and Drug Abuse Patient Records regulations: The Federal rules restrict any use of the information to criminally investigate or prosecute any alcohol or drug abuse patient.[facility] SystemIn the event this information is protected by the Federal Confidentiality of Alcohol and Drug Abuse Patient Records regulations: The Federal rules restrict any use of the information to criminally investigate or prosecute any alcohol or drug abuse patient.[facility] SystemIn the event this information is protected by the Federal Confidentiality of Alcohol and Drug Abuse Patient Records regulations: The Federal rules restrict any use of the information to criminally investigate or prosecute any alcohol or drug abuse patient.[facility] SystemIn the event this information is protected by the Federal Confidentiality of Alcohol and Drug Abuse Patient Records regulations: The Federal rules restrict any use of the information to criminally investigate or prosecute any alcohol or drug abuse patient.[facility] SystemIn the event this information is protected by the Federal Confidentiality of Alcohol and Drug Abuse Patient Records regulations: The Federal rules restrict any use of the information to criminally investigate or prosecute any alcohol or drug abuse patient.[facility] SystemIn the event this information is protected by the Federal Confidentiality of Alcohol and Drug Abuse Patient Records regulations: The Federal rules restrict any use of the information to criminally investigate or prosecute any alcohol or drug abuse patient.[facility] SystemIn the event this information is protected by the Federal Confidentiality of Alcohol and Drug Abuse Patient Records regulations: The Federal rules restrict any use of the information to criminally investigate or prosecute any alcohol or drug abuse patient.[facility] SystemIn the event this information is protected by the Federal Confidentiality of Alcohol and Drug Abuse Patient Records regulations: The Federal rules restrict any use of the information to criminally investigate or prosecute any alcohol or drug abuse patient.[facility] SystemIn the event this information is protected by the Federal Confidentiality of Alcohol and Drug Abuse Patient Records regulations: The Federal rules restrict any use of the information to criminally investigate or prosecute any alcohol or drug abuse patient.[facility] SystemIn the event this information is protected by the Federal Confidentiality of Alcohol and Drug Abuse Patient Records regulations: The Federal rules restrict any use of the information to criminally investigate or prosecute any alcohol or drug abuse patient.[facility] SystemIn the event this information is protected by the Federal Confidentiality of Alcohol and Drug Abuse Patient Records regulations: The Federal rules restrict any use of the information to criminally investigate or prosecute any alcohol or drug abuse patient.[facility] SystemIn the event this information is protected by the Federal Confidentiality of Alcohol and Drug Abuse Patient Records regulations: The Federal rules restrict any use of the information to criminally investigate or prosecute any alcohol or drug abuse patient.[facility] SystemIn the event this information is protected by the Federal Confidentiality of Alcohol and Drug Abuse Patient Records regulations: The Federal rules restrict any use of the information to criminally investigate or prosecute any alcohol or drug abuse patient.[facility] SystemIn the event this information is protected by the Federal Confidentiality of Alcohol and Drug Abuse Patient Records regulations: The Federal rules restrict any use of the information to criminally investigate or prosecute any alcohol or drug abuse patient.[facility] SystemIn the event this information is protected by the Federal Confidentiality of Alcohol and Drug Abuse Patient Records regulations: The Federal rules restrict any use of the information to criminally investigate or prosecute any alcohol or drug abuse patient.[facility] SystemIn the event this information is protected by the Federal Confidentiality of Alcohol and Drug Abuse Patient Records regulations: The Federal rules restrict any use of the information to criminally investigate or prosecute any alcohol or drug abuse patient.[facility] SystemIn the event this information is protected by the Federal Confidentiality of Alcohol and Drug Abuse Patient Records regulations: The Federal rules restrict any use of the information to criminally investigate or prosecute any alcohol or drug abuse patient.[facility] SystemIn the event this information is protected by the Federal Confidentiality of Alcohol and Drug Abuse Patient Records regulations: The Federal rules restrict any use of the information to criminally investigate or prosecute any alcohol or drug abuse patient.[facility] SystemIn the event this information is protected by the Federal Confidentiality of Alcohol and Drug Abuse Patient Records regulations: The Federal rules restrict any use of the information to criminally investigate or prosecute any alcohol or drug abuse patient.[facility] SystemIn the event this information is protected by the Federal Confidentiality of Alcohol and Drug Abuse Patient Records regulations: The Federal rules restrict any use of the information to criminally investigate or prosecute any alcohol or drug abuse patient.[facility] SystemIn the event this information is protected by the Federal Confidentiality of Alcohol and Drug Abuse Patient Records regulations: The Federal rules restrict any use of the information to criminally investigate or prosecute any alcohol or drug abuse patient.[facility] SystemIn the event this information is protected by the Federal Confidentiality of Alcohol and Drug Abuse Patient Records regulations: The Federal rules restrict any use of the information to criminally investigate or prosecute any alcohol or drug abuse patient.[facility] SystemIn the event this information is protected by the Federal Confidentiality of Alcohol and Drug Abuse Patient Records regulations: The Federal rules restrict any use of the information to criminally investigate or prosecute any alcohol or drug abuse patient.[facility] SystemIn the event this information is protected by the Federal Confidentiality of Alcohol and Drug Abuse Patient Records regulations: The Federal rules restrict any use of the information to criminally investigate or prosecute any alcohol or drug abuse patient.[facility] SystemIn the event this information is protected by the Federal Confidentiality of Alcohol and Drug Abuse Patient Records regulations: The Federal rules restrict any use of the information to criminally investigate or prosecute any alcohol or drug abuse patient.[facility] SystemIn the event this information is protected by the Federal Confidentiality of Alcohol and Drug Abuse Patient Records regulations: The Federal rules restrict any use of the information to criminally investigate or prosecute any alcohol or drug abuse patient.[facility] SystemIn the event this information is protected by the Federal Confidentiality of Alcohol and Drug Abuse Patient Records regulations: The Federal rules restrict any use of the information to criminally investigate or prosecute any alcohol or drug abuse patient.[facility] SystemIn the event this information is protected by the Federal Confidentiality of Alcohol and Drug Abuse Patient Records regulations: The Federal rules restrict any use of the information to criminally investigate or prosecute any alcohol or drug abuse patient.[facility] SystemIn the event this information is protected by the Federal Confidentiality of Alcohol and Drug Abuse Patient Records regulations: The Federal rules restrict any use of the information to criminally investigate or prosecute any alcohol or drug abuse patient.[facility] Reason for Visit (unrecogniz ed section and content) Reason Onset Date Comments Refill Request 08/31/2021 Reason Onset Date Comments Refill Request 10/01/2021 Reason Onset Date Comments Refill Request 11/27/2021 Reason Onset Date Comments Refill Request 12/28/2021 Reason Onset Date Comments Refill Request 12/29/2021 Reason Onset Date Comments Refill Request 01/26/2022 Reason Onset Date Comments Refill Request 02/23/2022 Reason Onset Date Comments Refill Request 02/28/2022 Reason Comments F/U 6 months Reason Onset Date Comments Refill Request 04/02/2022 Reason Onset Date Comments Refill Request 04/27/2022 Reason Onset Date Comments Refill Request 06/12/2022 Reason Onset Date Comments Refill Request 07/09/2022 Reason Onset Date Comments Refill Request 08/02/2022 Reason Comments Mass Reason Comments Results Reason Comments Suture Removal Reason Comments Painful Toenails Left great toenail Reason Comments Preparations For Surgery Reason Onset Date Comments Refill Request 11/08/2022 Reason Comments Post Op Follow Up Incisional hernia re pair with mesh. Reason Onset Date Comments Refill Request 12/08/2022 Reason Onset Date Comments Refill Request 01/05/2023 Reason Onset Date Comments Refill Request 02/02/2023 Reason Onset Date Comments Refill Request 03/03/2023 Care Teams (unrecognized sec tion and content) Agile Developer Relationship Specialty Start Date End Date Chantal Wilson MD [address] [place] [id number] PCP - General Family Practice 06/13/14 Agile Developer Relationship Specialty Start Date End Date Chantal Wilson MD [address] [place] [address] [id number] PCP - General Family Practice 06/13/14 Agile Developer Relationship Specialty Start Date End Date Chantal Wilson MD [address] [place] [id number] PCP - General Family Practice 06/13/14 Agile Developer Relationship Specialty Start Date End Date Chantal Wilson MD [address] [place] [id number] PCP - General Family Practice 06/13/14 Agile Developer Relationship Specialty Start Date End Date Chantal Wilson MD [address] [place] [id number] PCP - General Family Medicine 06/13/14 Agile Developer Relationship Specialty Start Date End Date Chantal Wilson MD [address] [facility] [place] [address] PCP - General Family Medicine 06/13/14 Agile Developer Relationship Specialty Start Date End Date Chantal Wilson MD [address] [facility] [place] [address] PCP - General Family Medicine 06/13/14 Agile Developer Relationship Specialty Start Date End Date Chantal Wilson MD [address] [facility] [place] [address] PCP - General Family Medicine 06/13/14 Agile Developer Relationship Specialty Start Date End Date Chantal Wilson MD [facility] [facility] [place] [address] PCP - General Family Medicine 06/13/14 Agile Developer Relationship Specialty Start Date End Date Chantal Wilson MD [address] [facility] [place] [address] PCP - General Family Medicine 06/13/14 Agile Developer Relationship Specialty Start Date End Date Chantal Wilson MD [facility] [facility] [place] [address] PCP - General Family Medicine 06/13/14 Agile Developer Relationship Specialty Start Date End Date Chantal Wilson MD [address] [facility] [place] [address] PCP - General Family Medicine 06/13/14 Agile Developer Relationship Specialty Start Date End Date Chantal Wilson MD [address] [place] [address], [place] [address] PCP - General Family Medicine 06/13/14 Agile Developer Relationship Specialty Start Date End Date Chantal Wilson MD [address] [facility] [place] [address] PCP - General Family Medicine 06/13/14 Agile Developer Relationship Specialty Start Date End Date Chantal Wilson MD [address] [facility] [place] [place] [address] PCP - General Family Medicine 06/13/14 Agile Developer Relationship Specialty Start Date End Date Chantal Wilson MD [address] [place] [address] PCP - General Family Medicine 06/13/14 Agile Developer Relationship Specialty Start Date End Date Chantal Wilson MD [address] [place] [address] PCP - General Family Medicine 06/13/14 Agile Developer Relationship Specialty Start Date End Date Chantal Wilson MD [address] [place] [address] PCP - General Family Medicine 06/13/14 Agile Developer Relationship Specialty Start Date End Date Chantal Wilson MD [address] [place] [address] PCP - General Family Medicine 06/13/14 Agile Developer Relationship Specialty Start Date End Date Chantal Wilson MD [address] [place] [address] PCP - General Family Medicine 06/13/14 Agile Developer Relationship Specialty Start Date End Date Chantal Wilson MD [address] [place] [address] PCP - General Family Medicine 06/13/14 Agile Developer Relationship Specialty Start Date End Date Chantal Wilson MD [address] [place], [place] [address] PCP - General Family Medicine 06/13/14 Agile Developer Relationship Specialty Start Date End Date Chantal Wilson MD [address] [facility] [place] [place] [id number] PCP - General Family Medicine 06/13/14 (unrecognized sect ion and content) No Status Records FoundNo Status Records Found INFORMATION SOURCE (unrecogn ized section and content) DATE CREATED AUTHOR AUTHOR'S ORGANIZ ATION 03/21/2023 [facility] FOR RECORDS PERTAINING TO PATIENTS WHO ARE OR HAVE BEEN ENROLLED IN A CHEMICAL DEPENDENCY/SUBSTANCEABUSE PROGRAM, SOME INFORMATION MAY BE OMITTED. This clinical summary was aggregated from multiple sources. Caution should be exercised in using it in the provision of clinical care. This summary normalizes information from multiple sources, and as a consequence, information in this document may materially change the coding, format and clinical context of patient data. In addition, data may be omitted in some cases. CLINICAL DECISIONS SHOULD BE BASED ON THE PRIMARY CLINICAL RECORDS. [employer] provides no warranty or guarantee of the accuracy or completeness of information in this document.
[2023-04-28 12:36] LABS: Erythrocyte Sedimentation Rate 5 mm/hr (0-20)
== END | disposition home or self-care (01) ==
LOC: LABSPEC 12:13
PROVIDERS: PCP Family Medicine; Referring Provider Family Medicine; Visit Provider Family Medicine
DX: R10.32 Left lower quadrant pain (principal)
CPT/HCPCS: 85652; 86140

== ENCOUNTER 2023-11-08 12:27 | Observation (INO) | payer MEDICARE, OTHER, SELFPAY ==
[2023-11-08] VITALS (12 sets, daily range): BP systolic 118–166; BP diastolic 56–96; PULSE 55–81; RESP 12–21; TEMP 35.8–36.8; O2SAT 96–98; BMI 31.9; BMI 32.1; BMI 31.1
--- NOTE | 2023-11-08 12:45 | CT_ITS ---
STUDY: CT HEAD STROKE PROTOCOL W/O CONTRAST INJECTION REASON FOR EXAM: Male, 73 years old. Neuro deficit, acute, stroke suspected RADIATION DOSAGE (If Supplied By Facility): CTDIvol = ( 47.06 ) mGy, DLP = ( 872.68 ) mGycm TECHNIQUE: Transaxial CT imaging of the brain was performed without administration of intravenous contrast material. Individualized dose optimization techniques were used for this CT. COMPARISON: No relevant priors. FINDINGS: Normal soft tissue structures. Normal calvarium. There is mild cerebral atrophy with widening of the extra-axial spaces and ventricular dilatation. There are areas of decreased attenuation within the white matter tracts of the supratentorial brain, consistent with microvascular disease changes. Normal basal ganglia and thalami. Normal brainstem. Normal cerebellum. There is no intracranial hemorrhage. There are no findings of an acute ischemic infarction. Normal visualized paranasal sinuses. ASPECT score: 10 CT/STROKE Brain/Head without Cont IMPRESSION: Chronic involutional changes of the brain. N.B. : The above Results were Read Back by Ced Cruz MD to Maurice Chávez and understanding confirmed on 11/08/2023 13:05:25 (ET). Electronically Signed: Ced Cruz MD at 13:06 EDT ,
--- NOTE | 2023-11-08 12:45 | EKG12_ITS ---
Test Reason : Blood Pressure : / mmHG Vent. Rate : 071 BPM Atrial Rate : 071 BPM P-R Int : 172 ms QRS Dur : 096 ms QT Int : 394 ms P-R-T Axes : 032 -50 042 degrees QTc Int : 428 ms Normal sinus rhythm Left anterior fascicular block Abnormal ECG Confirmed by Steven Tang ([id number]), assistant film editor MOSHE GODDARD ([id number]) on 11/09/2023 2:07:19 PM Referred By: Confirmed By:Steven Tang
--- NOTE | 2023-11-08 12:45 | CT_ITS ---
STUDY: CTA HEAD AND NECK WITH CONTRAST REASON FOR EXAM: Male, 73 years old. Neuro deficit, acute, stroke suspected RADIATION DOSAGE (If Supplied By Facility): CTDIvol = ( 20.69 ) mGy, DLP = ( 890.21 ) mGycm TECHNIQUE: CT angiography was performed with a multi-detector CT scanner. Data acquisition was obtained from the skull base through the vertex following intravenous administration of IV 100mL Isovue-370. MIP images were reconstructed from the axial data set. Post-processing of the angiographic images was performed, with multiplanar reformation and 3D reconstruction. Individualized dose optimization techniques were used for this CT. COMPARISON: No relevant priors. FINDINGS: Normal bilateral petrous carotid arteries. Normal right cavernous carotid artery with a normal supraclinoid bifurcation. Normal left cavernous carotid artery with a normal supraclinoid bifurcation. Normal right A1 segments of the anterior cerebral artery. Normal left A1 segments of the anterior cerebral artery. Normal intact anterior communicating artery (ACOM). Normal bilateral A2 segments of the anterior cerebral arteries. Normal right M1 and M2 segments of the middle cerebral arteries, with a normal M1 bifurcation. Normal left M1 and M2 segments of the middle cerebral arteries, with a normal M1 bifurcation. Normal right posterior communicating artery (PCOM). Normal left posterior communicating artery (PCOM). Normal bilateral vertebral arteries. Normal basilar artery with a normal basilar bifurcation. The visualized bilateral superior cerebellar (SCA) arteries are normal. Normal bilateral P1, P2 and visualized P3 segments of the posterior cerebral arteries. There is no demonstrated aneurysm of the [place]. AORTIC ARCH: Normal visualized aortic arch. Normal origins of the brachiocephalic, left common carotid, and left subclavian arteries. RIGHT CAROTID ARTERIES: Normal right common carotid artery (CCA). Normal right common carotid bulb. Normal origin of the right internal carotid (ICA) artery without a hemodynamically significant stenosis. Normal visualized cervical portion of the right internal carotid artery. Normal origin of the right external carotid artery (ECA). LEFT CAROTID ARTERIES: Normal left common carotid artery (CCA). Normal left common carotid bulb. Normal origin of the left internal carotid (ICA) artery without a hemodynamically significant stenosis. Normal visualized cervical portion of the left internal carotid artery. Normal origin of the left external carotid artery (ECA). VERTEBRAL ARTERIES: Normal bilateral vertebral arteries. CT/STROKE CTA Head AND Neck W/Con IMPRESSION: Normal CTA Head and neck with contrast. N.B. : The above Results were Read Back by Ced Cruz MD to Maurice Chávez and understanding confirmed on 11/08/2023 13:16:23 (ET). Electronically Signed: Ced Cruz MD at 13:17 EDT ,
[2023-11-08 12:53] LABS: Absolute Lymphocyte Count 1.71 X10^3/uL (0.83-4.51); Basophil# 0.03 X10^3/uL; Basophil% 0.5 % (0-1); Hematocrit 46.4 % (40-54); Hemoglobin 15.2 g/dL (13.0-16.5); Lymphocyte # 1.71 X10^3/ul (0.83-4.51); Lymphocyte % 27.7 % (19-41); Mean Corp Hgb Conc 32.8 g/dL (32-36); Mean Corpuscular Hgb 28.8 pg (27.0-32.0); Mean Platelet Vol. 9.4 fl (6.2-12.0); Monocyte# 0.45 X10^3/uL; Monocyte% 7.3 % (0-10); NRBC Flagged by Analyzer 0 % (0-5); Neutrophil # 3.97 X10^3/uL (2.7-7.7); Neutrophil % 64.2 % (47-70); Platelet Count 242 K/mm3 (150-450); RBC Distribution Width CV 13.8 % (11.6-14.6); RBC Distribution Width SD 44.5 fl (35.1-43.9); Red Blood Count 5.27 M/mm3 (4.6-6.2); White Blood Count 6.2 K/mm3 (4.4-11.0)
[2023-11-08 13:01] LABS: Bedside Glucose 109 mg/dL (74-106)
[2023-11-08 13:13] LABS: Prothrombin Time (Protime)PT. 12.7 SECONDS (11.7-14.9)
[2023-11-08 13:14] LABS: Partial Thromboplast Time 27.9 Seconds (24.1-36.2)
[2023-11-08] MEDS: 0.9% Normal Saline (1000mL) 1,000 ML 999 ML IV (13:21)
--- NOTE | 2023-11-08 13:23 | RAD_ITS ---
STUDY: X-RAY CHEST REASON FOR EXAM: Male, 73 years old. Neuro deficit, acute, stroke suspected TECHNIQUE: Single AP portable view of the chest. COMPARISON: Comparison is made with prior study dated March 08, 2021. FINDINGS: EKG electrodes are seen. The lungs are clear and expanded. There is no demonstrated pleural abnormality. Normal size heart. Normal mediastinum and xander. Normal visualized pulmonary arteries. There is atherosclerotic tortuosity of the aortic arch and descending thoracic aorta. There are diffuse degenerative changes of the visualized thoracic spine. Normal visualized ribs, clavicles, and shoulders. There is no demonstrated abnormality of the visualized soft tissue structures of the upper abdomen. RAD/Chest 1 View IMPRESSION: No acute abnormality is seen. Stable examination. Electronically Signed: Ced Cruz MD at 13:46 EDT ,
[2023-11-08 13:24] LABS: Anion Gap 5 (5-15); BUN 10 mg/dL (7-18); BUN/Creat Ratio 10.7 RATIO (10-20); Calcium,Total 9.6 mg/dL (8.5-10.1); Chloride 104 mmol/L (98-107); Creatinine, Serum 0.93 mg/dL (0.70-1.30); EST Glomerular Filtration Rate 85 mL/min (>60); Est Glom Filt Rate - Afr Amer 102 mL/min (>60); Estimated Creatinine Clearance 88.29 ml/min; Glucose 109 mg/dL (74-106); Sodium Level 135 mmol/L (136-145); Troponin-I HS 6 pg/mL (3.0-78.0)
--- NOTE | 2023-11-08 14:06 | EX.ED.DYSGE1 ---
HPI History of Present Illness Chief Complaint: Numb/Ting Narrative Narrative: Patient is a 73-year-old male with a past medical history of COPD, anxiety, depression who presents to the emergency department chief complaint of left facial and left upper extremity numbness and tingling with decreased sensation. According to the patient around 1145 this morning he noted that he was working in his house he developed dizziness nausea and then his symptoms began. He states that he did not develop any chest pain shortness of breath with exertion he states that he had been going up and down the steps multiple times prior to the symptoms beginning. Patient states that he does take a aspirin daily 81 mg. Patient denies any recent sick contacts. Patient states that he just feels off and his significant other at bedside noted that he did not look well when his symptoms began. She denied any facial droop, slurred speech, difficulty with ambulating. [facility] Medical History Hearing loss, left Hearing loss, right Wears hearing aid in both ears COPD (chronic obstructive pulmonary disease) Non-smoker Anxiety and depression Home Medications ?Medication ?Instructions ?Recorded ?Last Taken ?Type buspirone 15 mg tablet 15 mg PO BID anxiety 03/06/21 11/08/23 History citalopram 20 mg tablet 10 mg PO DAILY Depression 03/06/21 11/08/23 History loratadine 5 mg-pseudoephedrine ER 5 - 120 tab PO DAILY PRN Allergies 03/06/21 11/08/23 History 120 mg tablet,extended release,12hr (Loratadine-D) lorazepam 0.5 mg tablet 0.5 mg PO DAILY PRN Anxiety 03/06/21 Unknown History Allergy/AdvReac Type Severity Reaction Status Date / Time No Known Allergies Allergy Verified 11/08/23 12:28 Social History Smoking Status: Never smoker ROS ROS ED ROS Narrative Constitutional: Complained of dizziness as noted above denies any headaches, fevers, chills, lightheadedness Eyes: Denies change in vision double vision blurry vision Cardiovascular: Denies chest pain or palpitations Respiratory: Denies coughing wheezing shortness of breath Abdomen: Admitted to nausea earlier but states this is resolved denies abdominal pain vomiting or diarrhea : Denies any urinary symptoms Neurological: Complains of left upper extremity and left facial numbness and tingling with a decrease sensation Musculoskeletal: Denies back pain Skin: Denies rashes or lesions EXAM Physical Exam Narrative Exam Narrative: General: Patient lying in bed rest comfortably did not appear to be in acute distress Head: Atraumatic, normocephalic Eyes: PERRL bilaterally, EOMI bilaterally, no conjunctival injection noted, no vertical or horizontal nystagmus noted on exam Neck: Soft, supple, trachea midline Cardiovascular: Regular rate and rhythm no murmurs gallops rubs noted Respiratory: Clear to auscultation bilaterally no rales rhonchi or wheezes noted Abdomen: Soft, nondistended, no tenderness palpation, bowel sounds present x 4 Extremities: +5/5 strength noted in the bilateral upper and lower extremities, no pedal edema noted on exam, radial pulses +2/4 the bilateral extremities Neurological: Patient states that he has decreased sensation in his left upper extremity as well as left side of his face when compared to the right. NIH 1 GCS 15. Patient following commands knew that he was at [facility] year is 2023 Skin: Warm, dry, intact Const Vital Signs: 11/08/23 12:28 11/08/23 12:31 11/08/23 12:48 Temperature 98.3 F Temperature Source Temporal Pulse Rate 81 73 Respiratory Rate 14 18 Blood Pressure 165/93 H 157/96 H Blood Pressure Mean 117 116 Pulse Ox 98 97 Oxygen Delivery Method Room Air Room Air Room Air 11/08/23 13:15 11/08/23 13:30 11/08/23 13:46 Temperature 98 F Temperature Source Pulse Rate 73 67 65 Respiratory Rate 16 21 H 19 H Blood Pressure 144/85 H 144/96 H 150/81 H Blood Pressure Mean 104 112 104 Pulse Ox 96 96 97 Oxygen Delivery Method Room Air Room Air 11/08/23 14:00 Temperature Temperature Source Pulse Rate 71 Respiratory Rate 17 Blood Pressure 150/81 H Blood Pressure Mean 104 Pulse Ox 96 Oxygen Delivery Method Room Air MDM MDM MDM Narrative Medical decision making narrative: Patient is a 73-year-old male who presented to the emergency department chief complaint of left-sided numbness and tingling of his face and upper extremity. Once again his symptoms started around 11:45 AM. Patient was made a stroke alert. General. Patient CBC reviewed and was largely unremarkable no evidence of leukocytosis white blood count normal at 6.2, hemoglobin stable at 15.2, platelet count was noted to be normal at 242. Patient INR normal at 1, PT normal at 12.7. Patient sodium was notably 135, potassium normal at 4, creatinine normal at 0.93. Patient's troponin normal at 6, EKG reviewed and showed normal sinus rhythm with a rate of 71 beats per minutes. Patient's [id number] glucose was noted be 109. Patient's CT head and brain without contrast reviewed and showed chronic involutional changes of the brain. Patient's CTA head and neck reviewed showed normal CTA head and neck with contrast. Patient chest x-ray reviewed showed no acute abnormality seen stable examination. Patient was evaluated by Dr. Harden telehealth stroke physician at [facility] who is recommending against tenecteplase as she feels that the risks outweigh the benefits and the patient is agreeable with this after risks and benefits discussed with him. Patient will be admitted to the hospital under the hospitalist service. Did discuss case with Dr. Kendall who evaluated the patient at bedside and will accept for admission. Patient and for members at bedside all question concerns answered. Lab Data Labs: Laboratory Results - last 24 hr 11/08/23 11/08/23 12:35 12:36 WBC 6.2 RBC 5.27 Hgb 15.2 Hct 46.4 MCV 88.0 MCH 28.8 MCHC 32.8 RDW Std Deviation 44.5 H RDW Coeff of An 13.8 Plt Count 242 MPV 9.4 Immature Gran % (Auto) 0.300 Neut % (Auto) 64.2 Lymph % (Auto) 27.7 Bullock % (Auto) 7.3 Eos % (Auto) 0.0 Baso % (Auto) 0.5 Absolute Neuts (auto) 4.0 Absolute Lymphs (auto) 1.71 Nucleated RBC % 0 PT 12.7 INR 1.0 APTT 27.9 Sodium 135 L Potassium 4.0 Chloride 104 Carbon Dioxide 26.0 Anion Gap 5 BUN 10 Creatinine 0.93 Estim Creat Clear Calc 88.29 Est GFR (MDRD) Af Amer 102 Est GFR (MDRD) Non-Af 85 BUN/Creatinine Ratio 10.7 Glucose 109 H Calcium 9.6 Troponin I High Sens 6 POC Glucose 109 H Radiography Diagnostic Testing: Clinical Impression(s) from Imaging Studies Brain CT 11/08/23 12:45 IMPRESSION: Chronic involutional changes of the brain. N.B. : The above Results were Read Back by Ced Cruz MD to Maurice Chávez and understanding confirmed on 11/08/2023 13:05:25 (ET). Electronically Signed: Ced Cruz MD at 13:06 EDT , ADDENDUM: 11/08/23 1313 IMPRESSION: Chronic involutional changes of the brain. N.B. : The above Results were Read Back by Ced Cruz MD to Maurice Chávez and understanding confirmed on 11/08/2023 13:05:25 (ET). Electronically Signed: Ced Cruz MD at 13:06 EDT , Head/Neck CTA 11/08/23 12:45 IMPRESSION: Normal CTA Head and neck with contrast. N.B. : The above Results were Read Back by Ced Cruz MD to Maurice Chávez and understanding confirmed on 11/08/2023 13:16:23 (ET). Electronically Signed: Ced Cruz MD at 13:17 EDT , ADDENDUM: 11/08/23 1324 IMPRESSION: Normal CTA Head and neck with contrast. N.B. : The above Results were Read Back by Ced Cruz MD to Maurice Chávez and understanding confirmed on 11/08/2023 13:16:23 (ET). Electronically Signed: Ced Cruz MD at 13:17 EDT , Chest X-Ray 11/08/23 13:23 IMPRESSION: No acute abnormality is seen. Stable examination. Electronically Signed: Ced Cruz MD at 13:46 EDT , Discharge Plan Triage Chief Complaint: Numb/Ting ED Provider: Maurice Chávez Dx/Rx/DC Orders Prescriptions: No Action citalopram 20 mg tablet 10 mg PO DAILY Patient Comments: TAKE 1 TABLET EVERY DAY for anxiety lorazepam 0.5 mg tablet 0.5 mg PO DAILY PRN (Reason: Anxiety) Patient Comments: TAKE 1 TABLET BY MOUTH EVERY DAY NEEDED Loratadine-D 5-120 mg tablet extended release 12 hr 5 - 120 tab PO DAILY PRN (Reason: Allergies) Patient Comments: Take 1 tablet by mouth twice daily. buspirone 15 mg tablet 15 mg PO BID Patient Comments: Take 1 tablet by mouth twice daily. Primary Care Provider: Leonel Peralta Referrals: Leonel Peralta MD [Primary Care Provider] - Print Language: Citizen [place]
--- NOTE | 2023-11-08 14:07 | ECHOD_ITS ---
Version 2 Reason For Study: TIA/CVA Procedure This was a 2D Doppler, Color Flow transthoracic echocardiogram. Exam performed portable in patient room. Left Ventricle Normal LV size. Left ventricular systolic function is normal. The left ventricular ejection fraction is 60 %. No regional wall motion abnormalities noted. Right Ventricle Normal RV size. Normal systolic function. Atria Normal left atrium. Normal right atrium. Intact atrial septum. Mitral Valve Normal mitral valve. Tricuspid Valve The tricuspid valve is not well visualized. Aortic Valve The aortic valve is not well visualized. Pulmonic Valve The pulmonic valve is not well visualized. Great Vessels Normal aortic root. The pulmonary artery is normal size. Normal inferior vena cava. Pericardium/Pleural No pericardial effusion. Medication Performed a rapid injection of agitated mix of 9 cc saline and 1cc air to assess for atrial septal defect. MMode/2D Measurements & Calculations LVIDd: 4.3 cm IVSd: 1.4 cm LVOT diam: 2.1 cm LVIDs: 2.4 cm LVPWd: 1.2 cm RVDd: 3.7 cm FS: 43.8 % LVOT area: 3.6 cm2 Ao root diam: 4.1 cm LAV(MOD-bp): 52.2 ml LVAd ap4: 28.0 cm2 LAV(MOD-bp) Indexed: 23.3 ml/m2 LVLd ap4: 7.8 cm LAV(MOD-sp2): 61.1 ml EDV(MOD-sp4): 80.4 ml LAV(MOD-sp4): 38.5 ml EDV(sp4-el): 85.2 ml LVAs ap4: 13.3 cm2 LVLs ap4: 6.5 cm ESV(MOD-sp4): 24.0 ml ESV(sp4-el): 23.3 ml EF(MOD-sp4): 70.2 % EF(sp4-el): 72.7 % LVAd ap2: 26.7 cm2 SV(MOD-sp4): 56.4 ml SV(MOD-sp2): 47.9 ml LVLd ap2: 7.7 cm EDV(MOD-sp2): 74.2 ml EDV(sp2-el): 78.5 ml LVAs ap2: 14.3 cm2 LVLs ap2: 6.4 cm ESV(MOD-sp2): 26.3 ml ESV(sp2-el): 27.1 ml EF(MOD-sp2): 64.6 % SV(sp4-el): 61.9 ml LA dimension(2D): 3.8 cm LA A4 area: 15.4 cm2 RA A4 area: 14.3 cm2 TAPSE: 2.1 cm Time Measurements MV dec time: 0.28 sec Doppler Measurements & Calculations MV E max tony: 73.3 cm/sec Lat Peak E' Tony: 11.8 cm/sec Med Peak E' Tony: 13.2 cm/sec MV A max tony: 77.7 cm/sec E/E' lat: 6.2 E/E' med: 5.5 MV E/A: 0.94 Ao V2 max: 134.7 cm/sec AI max tony: 411.7 cm/sec MV dec slope: 262.4 cm/sec2 Ao max P.3 mmHg AI max P.8 mmHg Ao V2 mean: 89.8 cm/sec Ao mean P.7 mmHg AI dec slope: 202.0 cm/sec2 Ao V2 VTI: 28.7 cm AI P1/2t: 597.0 msec AV (velocity ratio): 0.81 LUPILLO(I,D): 2.9 cm2 LUPILLO(V,D): 3.1 cm2 LV V1 max: 118.9 cm/sec SV(LVOT): 82.7 ml PA V2 max: 98.0 cm/sec LV V1 max P.7 mmHg PA max PG (full): 1.3 mmHg LV V1 mean P.1 mmHg LV V1 mean: 82.2 cm/sec LV V1 VTI: 23.2 cm TR max tony: 195.9 cm/sec TR max P.4 mmHg ECHO/Echo Complete Interpretation Summary Normal LV size. Left ventricular systolic function is normal. The left ventricular ejection fraction is 60 %. No regional wall motion abnormalities noted. Intact atrial septum The study was technically difficult. Ordering Physician: José Miguel Dejesus Performed By: Bianka Graff RDCS
--- NOTE | 2023-11-08 14:07 | MRI_ITS ---
STUDY: MRI BRAIN WITHOUT CONTRAST REASON FOR EXAM: Male, 73 years old. TIA/stroke TECHNIQUE: Standardized multiplanar fat and water weighted pulse sequences were obtained. COMPARISON: CT the brain November 08, 2023 FINDINGS: Mild atrophy and periventricular white matter ischemic changes without mass effect or restricted diffusion There is an arachnoid cyst in the left middle cranial fossa Normal bilateral basal ganglia. Normal thalami. There is no extra-axial fluid accumulation. Normal flow voids within the major intracranial circulation suggesting patency by spin echo criteria. Normal sella turcica, pituitary gland, infundibular stalk, optic chiasm and hypothalamus. Normal tectal plate and pineal gland. Normal midbrain, filemon and medulla. There is beaking of the cerebellar tonsils which project into the upper foramen magnum consistent with borderline Chiari malformation without located cervical cervix. Normal basal cisterns. Normal bilateral temporal bones. Normal bilateral internal auditory canals. No demonstrated orbital abnormality, within the constraints of a routine brain study. Normal visualized paranasal sinuses. Normal calvarium and skull base. Normal visualized soft tissue structures. Normal visualized upper cervical spine. MRI/Brain without Contrast IMPRESSION: Mild atrophy and periventricular white matter ischemic change without evidence for acute infarct. . 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
--- NOTE | 2023-11-08 14:33 | HP.PCM.HOS_ITS ---
HPI - General General Date of Admission: 11/08/23 Date of Service: 11/08/23 Chief Complaint: Diminished sensation in the left face and left arm HPI Narrative JHON STEPHENS, is a 73 M who presents to the emergency room at [facility] complaining of decreased sensation to his left facial area and his left arm. This occurred approximately 11 AM today, he did not complain of any motor weakness, he did not complain of any visual or speech abnormality. Stroke team was called, patient is NIH score was 1, he underwent a CTA of the head and neck as well as a CT of the brain all of which were unremarkable. Labs showed a normal CBC and chemistry profile is essentially unremarkable. Patient will be placed in observation status on PCU for TIA versus stroke, NIH scores will be monitored, patient will have an MRI of the brain performed without contrast, lipid profile was ordered, patient will be placed on a baby aspirin daily and 80 mg of Lipitor at bedtime. Patient already takes 81 mg aspirin at home-he does not have a definite reason to take it but he takes it for what he believes is general health reasons. [facility] Medical History Hearing loss, left Hearing loss, right Wears hearing aid in both ears COPD (chronic obstructive pulmonary disease) Non-smoker Anxiety and depression Home Medications ?Medication ?Instructions ?Recorded ?Last Taken ?Type buspirone 15 mg tablet 15 mg PO BID anxiety 03/06/21 11/08/23 History citalopram 20 mg tablet 10 mg PO DAILY Depression 03/06/21 11/08/23 History loratadine 5 mg-pseudoephedrine ER 5 - 120 tab PO DAILY PRN Allergies 03/06/21 11/08/23 History 120 mg tablet,extended release,12hr (Loratadine-D) lorazepam 0.5 mg tablet 0.5 mg PO DAILY PRN Anxiety 03/06/21 Unknown History Allergy/AdvReac Type Severity Reaction Status Date / Time No Known Allergies Allergy Verified 11/08/23 12:28 Social History Smoking Status: Never smoker ROS Constitutional Constitutional: Denies anorexia, change in weight, fever(s), night sweats or weakness Eyes Eyes: Denies blurry vision, change in vision, discharge from eye(s) or eye pain Cardiovascular Cardiovascular: Denies chest pain, claudication, dyspnea on exertion, edema or palpitations Respiratory/Chest Respiratory/Chest: Denies cough, hemoptysis, shortness of breath at rest or shortness of breath with exertion Gastrointestinal Gastrointestinal: Denies abdominal pain, constipation, diarrhea, hematemesis, hematochezia, melena, nausea or vomiting Genitourinary Genitourinary: Denies dysuria, hematuria, urinary frequency, urinary hesitancy, urinary incontinence or urinary urgency Musculoskeletal Musculoskeletal: Denies back pain, joint pain, joint stiffness, joint swelling, myalgias or neck pain Neurologic Neurologic: Reports numbness, paresthesias and tingling; Denies abnormal gait, abnormal speech, dizziness, focal weakness, headache(s), loss of vision, other visual disturbances or syncope Psychiatric Psychiatric: Denies anxiety, cognitive impairment, depression, irritability, mood swings or suicidal ideation Endocrine Endocrinology: Denies change in body appearance, cold intolerance, excessive sweating, heat intolerance, polydipsia or polyuria Hematologic/Lymphatic Hematologic/Lymphatic: Denies none, anemia, easy bleeding, easy bruising or lymphadenopathy Allergic/Immunologic Allergic/Immunologic: Denies rhinitis, urticaria, eczemia or asthma Vital Signs Vital Signs Vital Signs: 11/08/23 12:28 11/08/23 12:31 11/08/23 12:48 Temperature 98.3 F Temperature Source Temporal Pulse Rate 81 73 Respiratory Rate 14 18 Blood Pressure 165/93 H 157/96 H Blood Pressure Mean 117 116 Pulse Ox 98 97 Oxygen Delivery Method Room Air Room Air Room Air 11/08/23 13:15 11/08/23 13:30 11/08/23 13:46 Temperature 98 F Temperature Source Pulse Rate 73 67 65 Respiratory Rate 16 21 H 19 H Blood Pressure 144/85 H 144/96 H 150/81 H Blood Pressure Mean 104 112 104 Pulse Ox 96 96 97 Oxygen Delivery Method Room Air Room Air 11/08/23 14:00 Temperature Temperature Source Pulse Rate 71 Respiratory Rate 17 Blood Pressure 150/81 H Blood Pressure Mean 104 Pulse Ox 96 Oxygen Delivery Method Room Air Weight Weight: 104.4 kg Body Mass Index (BMI) 32.1 Physical Exam Const alert, oriented x3, no apparent distress and healthy appearing General Appearance: cooperative, well kempt and well developed Orientation / Consciousness: awake, oriented to person, oriented to place and oriented to time HEENT normocephalic, head/scalp atraumatic, hearing grossly normal bilaterally and moist oral mucous membranes Eyes PERRL, EOMs intact bilaterally and conjunctivae normal Neck supple, no JVD, thyroid normal and no carotid bruits General: trachea midline Resp normal respiratory effort, no retractions, no use of accessory muscles and clear to auscultation bilaterally Auscultation: Negative for rales, rhonchi or wheezes Cardio regular rate, regular rhythm, S1 normal heart sound, S2 normal heart sound, no murmurs, no rub and no gallops GI normal to inspection, nondistended, normoactive bowel sounds, soft to palpation, non-tender and non-distended Extremity no clubbing, cyanosis or edema Skin no rashes or lesions noted General Skin Exam: no breakdown Neuro oriented x3, CN's II-XII intact bilaterally, moves all extremities and no focal motor deficits Neuro Narrative: Patient has decreased sensation to light touch over the left facial area and left upper arm Sensorium / Orientation: awake and alert Speech: speech normal Psych affect normal Results Lab / Micro Data 11/08/23 12:35 11/08/23 12:35 Labs: Laboratory Results - last 24 hr 11/08/23 12:35: WBC 6.2, RBC 5.27, Hgb 15.2, Hct 46.4, MCV 88.0, MCH 28.8, MCHC 32.8, RDW Std Deviation 44.5 H, RDW Coeff of An 13.8, Plt Count 242, MPV 9.4, Immature Gran % (Auto) 0.300, Neut % (Auto) 64.2, Lymph % (Auto) 27.7, [place] % (Auto) 7.3, Eos % (Auto) 0.0, Baso % (Auto) 0.5, Absolute Neuts (auto) 4.0, Absolute Lymphs (auto) 1.71, Nucleated RBC % 0, PT 12.7, INR 1.0, APTT 27.9, S odium 135 L, Potassium 4.0, Chloride 104, Carbon Dioxide 26.0, Anion Gap 5, BUN 10, Creatinine 0.93, Estim Creat Clear Calc 88.29, Est GFR (MDRD) Af Amer 102, Est GFR (MDRD) Non-Af 85, BUN/Creatinine Ratio 10.7, Glucose 109 H, Calcium 9.6, Troponin I High Sens 6 11/08/23 12:36: POC Glucose 109 H Imaging Radiology Impression Brain CT 11/08/23 12:45 IMPRESSION: Chronic involutional changes of the brain. N.B. : The above Results were Read Back by Ced Cruz MD to Maurice Chávez and understanding confirmed on 11/08/2023 13:05:25 (ET). Electronically Signed: Ced Cruz MD at 13:06 EDT , ADDENDUM: 11/08/23 1313 IMPRESSION: Chronic involutional changes of the brain. N.B. : The above Results were Read Back by Ced Cruz MD to Maurice Chávez and understanding confirmed on 11/08/2023 13:05:25 (ET). Electronically Signed: Ced Cruz MD at 13:06 EDT , Head/Neck CTA 11/08/23 12:45 IMPRESSION: Normal CTA Head and neck with contrast. N.B. : The above Results were Read Back by Ced Cruz MD to Maurice Chávez and understanding confirmed on 11/08/2023 13:16:23 (ET). Electronically Signed: Ced Cruz MD at 13:17 EDT , ADDENDUM: 11/08/23 1324 IMPRESSION: Normal CTA Head and neck with contrast. N.B. : The above Results were Read Back by Ced Cruz MD to Maurice Chávez and understanding confirmed on 11/08/2023 13:16:23 (ET). Electronically Signed: Ced Cruz MD at 13:17 EDT , Chest X-Ray 11/08/23 13:23 IMPRESSION: No acute abnormality is seen. Stable examination. Electronically Signed: Ced Cruz MD at 13:46 EDT , Assessment & Plan Assessment/Plan (1) Paresthesias: PLAN: Plan 1. Left facial and left arm paresthesias-etiology unclear, again patient was placed in observation status on PCU, NIH scores will be monitored, patient will be seen by PT and OT, he will be placed on a baby aspirin daily as well as 80 mg of Lipitor daily, lipid profile will be obtained, patient will have an MRI of the brain and an echocardiogram performed. #2 chronic depression/anxiety-patient is on BuSpar and citalopram, these will be continued, patient also uses Ativan as needed anxiety. Total clinical time spent by myself addressing the patient's medical issues, reviewing all of his data, and collaborating with patient's care team: 55 minutes Charges/Coding Visit Charges Inpatient E&M: 64482 Init Hosp L2
[2023-11-08 14:47] LABS: Cholesterol 192 mg/dL (200); High Density Lipoprotein 58 mg/dL; Triglycerides 132 mg/dL; Very Low Density Lipoprotein 26 mg/dL (5-40)
[2023-11-08] MEDS: Acetaminophen 325 MG Tablet 650 MG PO (18:59)
[2023-11-08] MEDS: Atorvastatin Calcium 80 MG Tablet PO (21:06)
[2023-11-08] MEDS: busPIRone 15 MG TABLET PO (21:06)
[2023-11-09 04:31] VITALS: BP 129/62; PULSE 58; RESP 16; TEMP 36.4; O2SAT 99
[2023-11-09 07:05] VITALS: O2SAT 97
[2023-11-09 07:42] VITALS: O2SAT 97
--- NOTE | 2023-11-09 08:01 | PCM.PN.HOSP ---
Reason for Visit Reason for Visit: Diagnoses Paresthesia of skin (11/08/23) Objective Data Objective Data Vital Signs: Vital Signs Temp Pulse Resp BP Pulse Ox O2 Del Method 97.6 F L 58 L 16 129/62 H 99 Room Air 11/09/23 04:31 11/09/23 04:31 11/09/23 04:31 11/09/23 04:31 11/09/23 04:31 11/09/23 04:31 Oxygen Delivery Method Room Air Weight: 229 lb 4.492 oz Body Mass Index (BMI) 31.1 Intake & Output: Intake and Output for Last 24 Hours 11/07/23 11/08/23 11/09/23 23:59 23:59 23:59 Intake Total 1120 / 1120 400 / 400 Output Total 0 / 0 Balance 1120 / 1120 400 / 400 Lab / Micro Data 11/08/23 12:35 11/08/23 12:35 Labs: Laboratory Results - last 24 hr 11/08/23 12:35: WBC 6.2, RBC 5.27, Hgb 15.2, Hct 46.4, MCV 88.0, MCH 28.8, MCHC 32.8, RDW Std Deviation 44.5 H, RDW Coeff of An 13.8, Plt Count 242, MPV 9.4, Immature Gran % (Auto) 0.300, Neut % (Auto) 64.2, Lymph % (Auto) 27.7, [place] % (Auto) 7.3, Eos % (Auto) 0.0, Baso % (Auto) 0.5, Absolute Neuts (auto) 4.0, Absolute Lymphs (auto) 1.71, Nucleated RBC % 0, PT 12.7, INR 1.0, APTT 27.9, Sodium 135 L, Potassium 4.0, Chloride 104, Carbon Dioxide 26.0, Anion Gap 5, BUN 10, Creatinine 0.93, Estim Creat Clear Calc 88.29, Est GFR (MDRD) Af Amer 102, Est GFR (MDRD) Non-Af 85, BUN/Creatinine Ratio 10.7, Glucose 109 H, Calcium 9.6, Troponin I High Sens 6, Triglycerides 132, Cholesterol 192, LDL Cholesterol 108, VLDL Cholesterol 26, HDL Cholesterol 58 11/08/23 12:36: POC Glucose 109 H Radiography Diagnostic Testing: Radiology Impression Brain CT 11/08/23 12:45 IMPRESSION: Chronic involutional changes of the brain. N.B. : The above Results were Read Back by Ced Cruz MD to Maurice Chávez and understanding confirmed on 11/08/2023 13:05:25 (ET). Electronically Signed: Ced Cruz MD at 13:06 EDT , ADDENDUM: 11/08/23 1313 IMPRESSION: Chronic involutional changes of the brain. N.B. : The above Results were Read Back by Ced Cruz MD to Maurice Chávez and understanding confirmed on 11/08/2023 13:05:25 (ET). Electronically Signed: Ced Cruz MD at 13:06 EDT , Head/Neck CTA 11/08/23 12:45 IMPRESSION: Normal CTA Head and neck with contrast. N.B. : The above Results were Read Back by Ced Cruz MD to Maurice Chávez and understanding confirmed on 11/08/2023 13:16:23 (ET). Electronically Signed: Ced Cruz MD at 13:17 EDT , ADDENDUM: 11/08/23 1324 IMPRESSION: Normal CTA Head and neck with contrast. N.B. : The above Results were Read Back by Ced Cruz MD to Maurice Chávez and understanding confirmed on 11/08/2023 13:16:23 (ET). Electronically Signed: Ced Cruz MD at 13:17 EDT , Chest X-Ray 11/08/23 13:23 IMPRESSION: No acute abnormality is seen. Stable examination. Electronically Signed: Ced Cruz MD at 13:46 EDT , Brain MRI 11/08/23 14:07 IMPRESSION: Mild atrophy and periventricular white matter ischemic change without evidence for acute infarct. . 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 Denied any motor weakness residual speech abnormality. NIH stroke scale was 1. 1. Left facial and left arm paresthesias-etiology unclear, again patient was placed in observation status on PCU, NIH scores will be monitored, patient will be seen by PT and OT, he will be placed on a baby aspirin daily as well as 80 mg of Lipitor daily, lipid profile will be obtained, patient will have an MRI of the brain and an echocardiogram performed. #2 chronic depression/anxiety-patient is on BuSpar and citalopram, these will be continued, patient also uses Ativan as needed anxiety. Laboratory Results 11/08/23 12:35: WBC 6.2, RBC 5.27, Hgb 15.2, Hct 46.4, MCV 88.0, MCH 28.8, MCHC 32.8, RDW Std Deviation 44.5 H, RDW Coeff of An 13.8, Plt Count 242, MPV 9.4, Immature Gran % (Auto) 0.300, Neut % (Auto) 64.2, Lymph % (Auto) 27.7, [place] % (Auto) 7.3, Eos % (Auto) 0.0, Baso % (Auto) 0.5, Absolute Neuts (auto) 4.0, Absolute Lymphs (auto) 1.71, Nucleated RBC % 0, PT 12.7, INR 1.0, APTT 27.9, Sodium 135 L, Potassium 4.0, Chloride 104, Carbon Dioxide 26.0, Anion Gap 5, BUN 10, Creatinine 0.93, Estim Creat Clear Calc 88.29, Est GFR (MDRD) Af Amer 102, Est GFR (MDRD) Non-Af 85, BUN/Creatinine Ratio 10.7, Glucose 109 H, Calcium 9.6, Troponin I High Sens 6, Triglycerides 132, Cholesterol 192, LDL Cholesterol 108, VLDL Cholesterol 26, HDL Cholesterol 58 11/08/23 12:36: POC Glucose 109 H
[2023-11-09] MEDS: Aspirin 81 MG TAB.CHEW PO (08:06)
[2023-11-09 08:08] VITALS: BP 127/84; PULSE 65; RESP 16; TEMP 36.7; O2SAT 97
[2023-11-09 09:18] LABS: Hemoglobin A1c 5.6 % (3.8-5.6)
[2023-11-09] MEDS: busPIRone 15 MG TABLET PO (09:27)
[2023-11-09] MEDS: Citalopram 10 MG Tablet PO (09:27)
[2023-11-09 09:41] LABS: Thyroid Stim Hormone (TSH) 1.57 uIU/mL (0.358-3.74)
--- NOTE | 2023-11-09 10:43 | DCINST_ITS ---
Discharge Instructions Diet Discharge Diet: Low fat / Low cholesterol and 2000 mg Sodium Diet Activity Discharge Activity: Return to Normal Activity Weight Bearing Status: Weight bearing as tolerated Dressing / Incision Call your doctor if you observe: Fever of 101 or Higher, Coldness, Increased Pain, Numbness or Tingling, Change in Color, Inability to urinate, Inability to have a bowel movement, Shortness of breath, Dizziness, Fainting spells, Swelling in the ankles, Chest pain, Prolonged hiccupping, Increased palpitations (irregular heartbeat) and Calf discomfort Follow Up Care When: IN 2 WEEKS Test Results: Test results from this visit will be discussed in further detail at your follow- up appointment, if applicable. Discharge Plan Admission Admit Date/Time: 11/08/23 14:00 Primary Reason for Your Visit: TIA Attending Provider: Nomi Cobos Primary Care Provider: Leonel Peralta Consulting Providers: Fercho Roe; Bossman Dutta; Cecile Harden; Helen Go; Christal Owusu; Dennis Griffin; Alba Elizabeth; Tashi Gregory; Brien Del Castillo; Tom Pena; Luiza Brantley; Kurtis Omalley; Pat Nath; Ayad Mccann; Daniella Caban; Medhat Vines; Gautam Baker; Yoni Rodriguez; Arabella Ny; Kia Sanchez; José Miguel Dejesus Discharge Orders/Prescriptions Prescriptions: New aspirin 81 mg Tablet,Chewable 81 mg PO BREAKFAST 30 Days Qty: 30 0RF atorvastatin 40 mg tablet 40 mg PO QHS 30 Days Qty: 30 3RF clopidogrel [Plavix] 75 mg tablet 75 mg PO DAILY 21 Days Qty: 21 0RF Continued citalopram 20 mg tablet 10 mg PO DAILY Patient Comments: TAKE 1 TABLET EVERY DAY for anxiety lorazepam 0.5 mg tablet 0.5 mg PO DAILY PRN (Reason: Anxiety) Patient Comments: TAKE 1 TABLET BY MOUTH EVERY DAY NEEDED Loratadine-D 5-120 mg tablet extended release 12 hr 5 - 120 tab PO DAILY PRN (Reason: Allergies) Patient Comments: Take 1 tablet by mouth twice daily. buspirone 15 mg tablet 15 mg PO BID Patient Comments: Take 1 tablet by mouth twice daily. Referrals / Follow Up: Leonel Peralta MD [Primary Care Provider] - Jesus Hale MD [Non-Staff] - Within 1 Month Disposition Disposition (needs filled in before D/C Order can be placed): Home, Self Care
--- NOTE | 2023-11-09 12:44 | PCM.DC.SUM ---
Providers Date of Admission: 11/08/23 Date of Discharge: 11/09/23 Primary Care Physician: Dr. Leonel Peralta MD Consultations 11/08/23 15:42 Consult: Tele-Neurology Routine Consulting Provider: [facility] Reason for Consult: Acute Ischemic Stroke/TIA EMERGENT Consult: No Notified: Yes Date Notified: 11/08/23 Time Notified: 14:03 Method of Notification: Answering Service Nursing Unit Staff Notify [facility] of Tele-Neurology Consult: Yes Reason For Visit: LEFT SIDED PARATHESIAS Diagnosis Discharge Diagnosis (1) Paresthesias: Status: Acute Code(s): R20.2 - Paresthesia of skin Plan 73-year-old gentleman was admitted with decreased sensation to left facial area and left arm approximately 11 AM on the day of admission. Denied any motor weakness residual speech abnormality. NIH stroke scale was 1. 1. Left facial and left arm paresthesia/numbness probably TIA: Patient was admitted in PCU. His symptoms got resolved in the morning today. Patient states that he takes baby aspirin at home though is not sure in home med list. MRI brain does not show acute stroke or infarct but incidental finding of arachnoid cyst in left middle cranial fossa. CT head and neck normal. 2D echo does not show PFO/ASD but intact septum. Discussed with the neurologist. Prescription sent for aspirin 80 mg daily, Plavix 75 mg daily for 3 weeks and then high intensity statin, atorvastatin 40 mg at bedtime. Patient profile within normal limit. A1c 5.6. TSH normal. #2 chronic depression/anxiety-patient is on BuSpar and citalopram, these will be continued, patient also uses Ativan as needed anxiety. Discharge medication reconciliation done. Discharge follow-up instructions completed. Discharge process discussed with the patient and all questions were answered to patient's satisfaction. Follow with PCP in 1 to 2 weeks Total time spent, exact 35 minutes on discharge meds reconciliation, examination, coordination of care with nurses and ancillary staff, review of imaging and blood test and discussion with the patient on follow-up instructions. Laboratory Results 11/08/23 12:35: WBC 6.2, RBC 5.27, Hgb 15.2, Hct 46.4, MCV 88.0, MCH 28.8, MCHC 32.8, RDW Std Deviation 44.5 H, RDW Coeff of An 13.8, Plt Count 242, MPV 9.4, Immature Gran % (Auto) 0.300, Neut % (Auto) 64.2, Lymph % (Auto) 27.7, Forsyth % (Auto) 7.3, Eos % (Auto) 0.0, Baso % (Auto) 0.5, Absolute Neuts (auto) 4.0, Absolute Lymphs (auto) 1.71, Nucleated RBC % 0, PT 12.7, INR 1.0, APTT 27.9, Sodium 135 L, Potassium 4.0, Chloride 104, Carbon Dioxide 26.0, Anion Gap 5, BUN 10, Creatinine 0.93, Estim Creat Clear Calc 88.29, Est GFR (MDRD) Af Amer 102, Est GFR (MDRD) Non-Af 85, BUN/Creatinine Ratio 10.7, Glucose 109 H, Calcium 9.6, Troponin I High Sens 6, Triglycerides 132, Cholesterol 192, LDL Cholesterol 108, VLDL Cholesterol 26, HDL Cholesterol 58 11/08/23 12:36: POC Glucose 109 H 11/09/23 08:45: Hemoglobin A1c 5.6, TSH 1.57 Clinical Impression(s) from Imaging Studies Brain CT 11/08/23 12:45 IMPRESSION: Chronic involutional changes of the brain. N.B. : The above Results were Read Back by Ced Cruz MD to Maurice Chávez and understanding confirmed on 11/08/2023 13:05:25 (ET). Electronically Signed: Ced Cruz MD at 13:06 EDT , ADDENDUM: 11/08/23 1313 IMPRESSION: Chronic involutional changes of the brain. N.B. : The above Results were Read Back by Ced Cruz MD to Maurice Chávez and understanding confirmed on 11/08/2023 13:05:25 (ET). Electronically Signed: Ced Cruz MD at 13:06 EDT , Head/Neck CTA 11/08/23 12:45 IMPRESSION: Normal CTA Head and neck with contrast. N.B. : The above Results were Read Back by Ced Cruz MD to Maurice Chávez and understanding confirmed on 11/08/2023 13:16:23 (ET). Electronically Signed: Ced Cruz MD at 13:17 EDT , ADDENDUM: 11/08/23 1324 IMPRESSION: Normal CTA Head and neck with contrast. N.B. : The above Results were Read Back by Ced Cruz MD to Maurice Chávez and understanding confirmed on 11/08/2023 13:16:23 (ET). Electronically Signed: Ced Cruz MD at 13:17 EDT , Chest X-Ray 11/08/23 13:23 IMPRESSION: No acute abnormality is seen. Stable examination. Electronically Signed: Ced Cruz MD at 13:46 EDT , Brain MRI 11/08/23 14:07 IMPRESSION: Mild atrophy and periventricular white matter ischemic change without evidence for acute infarct. . 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 Left ventricular systolic function is normal. The left ventricular ejection fraction is 60 %. No regional wall motion abnormalities noted. Intact atrial septum The study was technically difficult. Medications at Discharge Home Medications buspirone 15 mg tablet 15 mg PO BID anxiety 03/06/21 citalopram 20 mg tablet 10 mg PO DAILY Depression 03/06/21 loratadine 5 mg-pseudoephedrine ER 120 mg tablet,extended release,12hr (Loratadine-D) 5 - 120 tab PO DAILY PRN Allergies 03/06/21 lorazepam 0.5 mg tablet 0.5 mg PO DAILY PRN Anxiety 03/06/21 aspirin 81 mg chewable tablet 81 mg PO BREAKFAST 30 days #30 tabs 11/09/23 atorvastatin 40 mg tablet 40 mg PO QHS 1 month #30 tabs 11/09/23 clopidogrel 75 mg tablet (Plavix) 75 mg PO DAILY 3 weeks #21 tabs 11/09/23 Physical Exam Narrative Symptoms of paresthesia/numbness left arm and left wrist resolved. Physical exam General: Alert, Oriented x3, Cooperative HEENT: Atraumatic, PERRLA, EOMI, Normocephalic Oral: No Gingival or Mucosal Lesions/ Ulcerations Neck: Supple, No JVD, Negative Carotid Bruits Chest wall/Lungs: Air entry diminished in bilateral lung bases. No crepitation/rhonchi Cardiovascular: Regular rate, Regular Rhythm, Normal S1, Normal S2, No M/G/R Abdomen: Bowel Sounds Present, Soft, Non Tender, Non-Distended : No dysuria. No renal angle tenderness. No suprapubic tenderness. Extremities: No edema, Capillary Refill Less than 3 Seconds Skin: No rashes, No breakdown Musculoskeletal: No Tenderness to Palpation of Joints or Extremities. ROM full and intact. Neurological: Cranial nerves II-XII grossly intact, DTR 2+/4. No acute focal neurological deficit. NIH stroke scale 0. Psych/Mental Status: Normal Affect, Appropriate. Weight / BMI Weight Weight: 229 lb 4.492 oz Body Mass Index (BMI) 31.1 ABG / Lab / Microbiology Data 11/08/23 12:35 11/08/23 12:35 Laboratory: Laboratory Results - last 24 hr 11/08/23 12:35: WBC 6.2, RBC 5.27, Hgb 15.2, Hct 46.4, MCV 88.0, MCH 28.8, MCHC 32.8, RDW Std Deviation 44.5 H, RDW Coeff of An 13.8, Plt Count 242, MPV 9.4, Immature Gran % (Auto) 0.300, Neut % (Auto) 64.2, Lymph % (Auto) 27.7, Forsyth % (Auto) 7.3, Eos % (Auto) 0.0, Baso % (Auto) 0.5, Absolute Neuts (auto) 4.0, Absolute Lymphs (auto) 1.71, Nucleated RBC % 0, PT 12.7, INR 1.0, APTT 27.9, Sodium 135 L, Potassium 4.0, Chloride 104, Carbon Dioxide 26.0, Anion Gap 5, BUN 10, Creatinine 0.93, Estim Creat Clear Calc 88.29, Est GFR (MDRD) Af Amer 102, Est GFR (MDRD) Non-Af 85, BUN/Creatinine Ratio 10.7, Glucose 109 H, Calcium 9.6, Troponin I High Sens 6, Triglycerides 132, Cholesterol 192, LDL Cholesterol 108, VLDL Cholesterol 26, HDL Cholesterol 58 11/08/23 12:36: POC Glucose 109 H 11/09/23 08:45: Hemoglobin A1c 5.6, TSH 1.57 Radiography Diagnostic Testing: Radiology Impression Brain CT 11/08/23 12:45 IMPRESSION: Chronic involutional changes of the brain. N.B. : The above Results were Read Back by Ced Curz MD to Maurice Chávez and understanding confirmed on 11/08/2023 13:05:25 (ET). Electronically Signed: Ced Cruz MD at 13:06 EDT , ADDENDUM: 11/08/23 1313 IMPRESSION: Chronic involutional changes of the brain. N.B. : The above Results were Read Back by Ced Cruz MD to Maurice Chávez and understanding confirmed on 11/08/2023 13:05:25 (ET). Electronically Signed: Ced Cruz MD at 13:06 EDT , Head/Neck CTA 11/08/23 12:45 IMPRESSION: Normal CTA Head and neck with contrast. N.B. : The above Results were Read Back by Ced Cruz MD to Maurice Chávez and understanding confirmed on 11/08/2023 13:16:23 (ET). Electronically Signed: Ced Cruz MD at 13:17 EDT , ADDENDUM: 11/08/23 1324 IMPRESSION: Normal CTA Head and neck with contrast. N.B. : The above Results were Read Back by Ced Cruz MD to Maurice Chávez and understanding confirmed on 11/08/2023 13:16:23 (ET). Electronically Signed: Ced Cruz MD at 13:17 EDT , Chest X-Ray 11/08/23 13:23 IMPRESSION: No acute abnormality is seen. Stable examination. Electronically Signed: Ced Cruz MD at 13:46 EDT , Brain MRI 11/08/23 14:07 IMPRESSION: Mild atrophy and periventricular white matter ischemic change without evidence for acute infarct. . 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 Left ventricular systolic function is normal. The left ventricular ejection fraction is 60 %. No regional wall motion abnormalities noted. Intact atrial septum The study was technically difficult. Ordering Physician: José Miguel Dejesus Performed By: Bianka Graff RDCS D/C Instructions Discharge Diet: Low fat / Low cholesterol and 2000 mg Sodium Diet Weight Bearing Status: Weight bearing as tolerated Call your doctor if you observe: Fever of 101 or Higher, Coldness, Increased Pain, Numbness or Tingling, Change in Color, Inability to urinate, Inability to have a bowel movement, Shortness of breath, Dizziness, Fainting spells, Swelling in the ankles, Chest pain, Prolonged hiccupping, Increased palpitations (irregular heartbeat) and Calf discomfort When: IN 2 WEEKS Meaningful Use Info Meaningful Use Meaningful Use Diagnoses (Choose all that apply): None applicable Ischemic Stroke Statin Dosing Therapy Reference: STATIN DOSE THERAPY REFERENCE: * Patients > 75 years receive moderate or high dose statin therapy. * Patients 75 years or YOUNGER should receive HIGH intensity statin dose unless contraindicated. You will be required to document reason for non-treatment if statin daily dose does not meet guidelines. HIGH DOSE STATIN THERAPY DAILY Atorvastatin > than or = to 40 mg Rosuvastatin > than or = to 20 mg Amlodipine + Atorvastatin > than or = to 2.5/40 mg Ezetimibe + Simvastatin 10/80 mg Simvastatin 80mg Discharge Plan Admission Admit Date/Time: 11/08/23 14:00 Primary Reason for Your Visit: TIA Attending Provider: Nomi Cobos Primary Care Provider: Leonel Peralta Consulting Providers: Fercho Roe; Bossman Dtuta; Cecile Harden; Helen Go; Christal Owusu; Dennis Griffin; Alba Elizabeth; Tashi Gregory; Brien Del Castillo; Tom Pena; Luiza Brantley; Kurtis Omalley; Pat Nath; Ayad Mccann; Daniella Caban; Medhat Vines; Gautam Baker; Yoni Rodriguez; Arabella Ny; Kia Sanchez; José Miguel Dejesus Discharge Orders/Prescriptions Prescriptions: New aspirin 81 mg Tablet,Chewable 81 mg PO BREAKFAST 30 Days Qty: 30 0RF atorvastatin 40 mg tablet 40 mg PO QHS 30 Days Qty: 30 3RF clopidogrel [Plavix] 75 mg tablet 75 mg PO DAILY 21 Days Qty: 21 0RF Continued citalopram 20 mg tablet 10 mg PO DAILY Patient Comments: TAKE 1 TABLET EVERY DAY for anxiety lorazepam 0.5 mg tablet 0.5 mg PO DAILY PRN (Reason: Anxiety) Patient Comments: TAKE 1 TABLET BY MOUTH EVERY DAY NEEDED Loratadine-D 5-120 mg tablet extended release 12 hr 5 - 120 tab PO DAILY PRN (Reason: Allergies) Patient Comments: Take 1 tablet by mouth twice daily. buspirone 15 mg tablet 15 mg PO BID Patient Comments: Take 1 tablet by mouth twice daily. Referrals / Follow Up: Leonel Peralta MD [Primary Care Provider] - Jesus Hale MD [Non-Staff] - Within 1 Month Disposition Disposition (needs filled in before D/C Order can be placed): Home, Self Care Charges/Coding Visit Charges Inpatient E&M: 05491 Disch Hosp >30min
--- NOTE | 2023-11-09 13:04 | CASEMGMT ---
SW did not complete a PHQ 9 with patient as he did not have a Stroke. Diagnosis listed is paraesthesia. Zina HERNANDEZ
--- NOTE | 2023-11-09 14:09 | CASEMGMT ---
Patient has order for discharge. RN CM in to discuss needs at discharge. Patient denies needs or help at discharge. Patient had no further questions or concerns.
[2023-11-09 14:21] VITALS: BP 147/73; PULSE 74; RESP 16; TEMP 36.1; O2SAT 96
--- NOTE | 2023-11-09 15:18 | NEURO.CONS ---
Assessment and Plan: Neuro Assessment/Plan JHON STEPHENS II is a 73 M with MARK/MDD who presented to the hospital due to an episode of diaphoresis, nausea, feeling like was going to pass out which quickly subsided but then was followed by left arm pain and left face and arm numbness. It about 12 hours for numbness to resolve. He is currently at baseline. MRI and ECHO unrevealing. It is very unclear what this episode was. He takes a baby ASA at home. The diaphoresis, nausea, sensation of passing out and pain is atypical of stroke. The numbness is the only typical symptom of a stroke but the focality of numbness is also atypical. His BP was elevated on admission. This could have been a HTN crisis, cardiac issue with pyschosomatic symptoms or a TIA, difficult to say with 100% certainty. Diagnosis: Episode of transient neurological symptoms Plan: - Cont baby ASA 81mg - Cont CV risk factor optimization - BP monitoring at home - Follow up with PCP I personally attended this patient and spent a total time of 30 minutes evaluating this patient including clinical assessment, review of chart, medical history imaging, and determining appropriate treatment and workup. HPI Consult Data Date of Consult: 11/09/23 HPI Narrative HPI Narrative: JHON STEPHENS II is a 73 M with MARK/MDD who presented to the hospital due to an episode of diaphoresis, nausea, feeling like was going to pass out which quickly subsided but then was followed by left arm pain and left face and arm numbness. It about 12 hours for numbness to resolve. He is currently at baseline. MRI and ECHO unrevealing. It is very unclear what this episode was. He takes a baby ASA at home. The diaphoresis, nausea, sensation of passing out and pain is atypical of stroke. The numbness is the only typical symptom of a stroke but the focality of numbness is also atypical. His BP was elevated on admission. This could have been a HTN crisis, cardiac issue with pyschosomatic symptoms or a TIA, difficult to say with 100% certainty. Never had any episode liek this before. No FH of neurological issues or clotting issues. [facility] Medical History Hearing loss, left Hearing loss, right Wears hearing aid in both ears COPD (chronic obstructive pulmonary disease) Non-smoker Anxiety and depression Home Medications ?Medication ?Instructions ?Recorded ?Last Taken ?Type buspirone 15 mg tablet 15 mg PO BID anxiety 03/06/21 11/08/23 History citalopram 20 mg tablet 10 mg PO DAILY Depression 03/06/21 11/08/23 History loratadine 5 mg-pseudoephedrine ER 5 - 120 tab PO DAILY PRN Allergies 03/06/21 11/08/23 History 120 mg tablet,extended release,12hr (Loratadine-D) lorazepam 0.5 mg tablet 0.5 mg PO DAILY PRN Anxiety 03/06/21 Unknown History aspirin 81 mg chewable tablet 81 mg PO BREAKFAST 30 days #30 tabs 11/09/23 Unknown Rx atorvastatin 40 mg tablet 40 mg PO QHS 1 month #30 tabs 11/09/23 Unknown Rx clopidogrel 75 mg tablet (Plavix) 75 mg PO DAILY 3 weeks #21 tabs 11/09/23 Unknown Rx Allergy/AdvReac Type Severity Reaction Status Date / Time No Known Allergies Allergy Verified 11/08/23 12:28 Social History Smoking Status: Never smoker Vital Signs Vital Signs Vital Signs: 11/08/23 17:10 11/08/23 17:49 11/08/23 17:49 Temperature 97.8 F 97.8 F Temperature Source Temporal Temporal Pulse Rate 55 L 55 L Respiratory Rate 12 12 Respiratory Effort Respiratory Depth Respiratory Pattern Blood Pressure 166/83 H 166/83 H Blood Pressure Mean 110 110 Blood Pressure Source Monitor Monitor Blood Pressure Position Sitting Sitting Blood Pressure Location Right Arm Right Arm Pulse Ox 97 97 Oxygen Delivery Method Room Air Room Air Room Air 11/08/23 20:15 11/08/23 21:00 11/08/23 22:00 Temperature 96.5 F L Temperature Source Temporal Pulse Rate 72 Respiratory Rate 18 Respiratory Effort Normal Respiratory Depth Normal Respiratory Pattern Normal Blood Pressure 118/56 L Blood Pressure Mean 76 Blood Pressure Source Monitor Blood Pressure Position Semi-Fowlers Blood Pressure Location Left Arm Pulse Ox 96 98 Oxygen Delivery Method Room Air Room Air Room Air 11/09/23 04:31 11/09/23 07:05 11/09/23 07:42 Temperature 97.6 F L Temperature Source Oral Pulse Rate 58 L Respiratory Rate 16 Respiratory Effort Respiratory Depth Respiratory Pattern Blood Pressure 129/62 H Blood Pressure Mean 84 Blood Pressure Source Blood Pressure Position Blood Pressure Location Pulse Ox 99 97 97 Oxygen Delivery Method Room Air Room Air 11/09/23 08:08 11/09/23 08:54 11/09/23 14:21 Temperature 98.0 F 97.0 F L Temperature Source Temporal Temporal Pulse Rate 65 74 Respiratory Rate 16 16 Respiratory Effort Respiratory Depth Respiratory Pattern Blood Pressure 127/84 H 147/73 H Blood Pressure Mean 98 97 Blood Pressure Source Monitor Monitor Blood Pressure Position Supine Supine Blood Pressure Location Right Arm Right Arm Pulse Ox 97 96 Oxygen Delivery Method Room Air Room Air Room Air Weight Weight: 104 kg Body Mass Index (BMI) 31.1 EEG Results Procedure Details EEG Procedure Details: JHON STEPHENS II is a 73 year old M with a past medical history of , who presents for evaluation of Electroencephalogram on DATE at TIME NIHSS NIHSS Nursing Documentation NIHSS Nursing Documentation: NIH Stroke Scale Start: 11/08/23 12:38 Freq: Status: Active Protocol: Activity Type Activity Date Activity User E-sign Co-sign Detail Recorded Client Recorded Date Recorded By Document 11/08/23 12:38 [id number] 11/08/23 12:39 HO 11/08/23 12:38 NIH Stroke Scale [NIHSS] A score of 0 is normal or asymptomatic . Total possible score is 42. Inpatient: RN or Physician to activate a stroke alert for onset of new stroke symptoms or with NIHSS increase >/= 3 points. Following change in neurological status, NIHSS will be performed per physician order or more frequently PRN. -1a. Level of Consciousness Alert; keenly responsive -1b. LOC Questions Answers BOTH questions correctly. -1c. LOC Commands Performs both tasks correctly . -2. Best Gaze Normal -3. Visual No visual loss -4. Facial Palsy Normal symmetrical movements -5a. Left Arm No drift; arm holds 90 (or 45 ) degrees for full 10 seconds -5b. Right Arm No drift; arm holds 90 (or 45 ) degrees for full 10 seconds -6a. Left Leg No drift; leg holds 30-degree position for full 5 seconds -6b. Right Leg No drift; leg holds 30-degree position for full 5 seconds -7. Limb Ataxia Absent -8. Sensory Mild-to- moderate sensory loss; -9. Best Language No aphasia; normal -10. Dysarthria Normal -11. Extinction and Inattention No abnormality -Total 1 Query Text:A score of 0 is normal or asymptomatic. Total possible score is 42 . ED: Notify Physician for NIHSS increase by > / = 3 points. Inpatient: RN or Physician to activate a stroke alert for NIHSS increase of > / = 3 points. NIHSS: Ischemic Stroke/TIA Start: 11/08/23 15:42 Text: For PCU Patients: NIH and Neuro Check every 4 Status: Complete hours, PRN and with change in RN caregiver. Freq: [id number] Protocol: Activity Type Activity Date Activity User E-sign Co-sign Detail Recorded Client Recorded Date Recorded By Document 11/08/23 17:49 NB desktop 11/08/23 18:44 NB 11/08/23 17:49 -1a. Level of Consciousness Alert; keenly responsive -1b. LOC Questions Answers BOTH questions correctly. -1c. LOC Commands Performs both tasks correctly . -2. Best Gaze Normal -3. Visual No visual loss -4. Facial Palsy Normal symmetrical movements -5a. Left Arm No drift; arm holds 90 (or 45 ) degrees for full 10 seconds -5b. Right Arm No drift; arm holds 90 (or 45 ) degrees for full 10 seconds -6a. Left Leg No drift; leg holds 30-degree position for full 5 seconds -6b. Right Leg No drift; leg holds 30-degree position for full 5 seconds -7. Limb Ataxia Absent -8. Sensory Mild-to- moderate sensory loss; -9. Best Language No aphasia; normal -10. Dysarthria Normal -11. Extinction and Inattention No abnormality -Total 1 Query Text:A score of 0 is normal or asymptomatic. Total possible score is 42 . ED: Notify Physician for NIHSS increase by > / = 3 points. Inpatient: RN or Physician to activate a stroke alert for NIHSS increase of > / = 3 points. Coma Scale [Assess] -Eye Opening Spontaneous -Motor Obeys Commands -Verbal Oriented [Total] -Coma Scale Total 15 Physical Exam Narrative Mental Status: AAOX4 & following simple commands. Speech: Clear and fluent with good repetition, comprehension, & naming. No aphasia or dysarthria CN II: Visual tyler are full to confrontation. PERRL. CN III, IV, : EOMI, no gaze preference, no nystagmus, no ptosis CN V: Facial sensation is intact to light touch throughout. CN VII: Face is symmetric with normal eye closure and smile. CN VII: Hearing is grossly normal to conversational speech. CN IX, X: Palate elevates symmetrically and no uvula deviation? CN XI: Head turning, and shoulder shrug are intact. CN XII: Tongue is midline with normal movements and no atrophy. Motor:?ABle to sustain all limbs Sensation: Normal to light touch bilaterally.? Coordination: Normal rapid alternating movements, FTN & HTS. No abn movements seen.? Lab / Micro Data 11/08/23 12:35 11/08/23 12:35 Labs: Laboratory Results - last 24 hr 11/09/23 08:45: Hemoglobin A1c 5.6, TSH 1.57 Imaging Radiology Impression Brain MRI 11/08/23 14:07 IMPRESSION: Mild atrophy and periventricular white matter ischemic change without evidence for acute infarct. . 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 Left ventricular systolic function is normal. The left ventricular ejection fraction is 60 %. No regional wall motion abnormalities noted. Intact atrial septum The study was technically difficult. Ordering Physician: José Miguel Dejesus Performed By: Bianka Graff RDCS Active Medications Active Medications Active Medications: Current Medications Generic Name Dose Route Start Last Admin Trade Name Freq PRN Reason Stop Dose Admin Acetaminophen 650 mg 11/08/23 15:42 11/08/23 18:59 Acetaminophen 325 Mg Tablet PO 650 mg Q6H PRN PRN Administration Pain 1-10 Or Fever >100.7 Aspirin 81 mg 11/09/23 08:00 11/09/23 08:06 Aspirin 81 Mg Tab.Chew PO 81 mg BREAKFAST JEFF Administration Atorvastatin Calcium 80 mg 11/08/23 22:00 11/08/23 21:06 Atorvastatin Calcium 80 Mg Tablet PO 80 mg QHS JEFF Administration Buspirone HCl 15 mg 11/08/23 22:00 11/09/23 09:27 Buspirone 15 Mg Tablet PO 15 mg BID JEFF Administration Citalopram Hydrobromide 10 mg 11/09/23 10:00 11/09/23 09:27 Citalopram 10 Mg Tablet PO 10 mg DAILY JEFF Administration Hydralazine HCl 5 mg 11/08/23 15:42 Hydralazine 20 Mg/Ml Vial IV 11/09/23 15:42 Q30M PRN maintain BP parameters with HR <60 Loratadine 5 mg 11/08/23 15:58 Loratadine 10 Mg Tablet PO BID PRN PRN ALLERGIES Lorazepam 0.5 mg 11/08/23 15:42 Lorazepam 0.5 Mg Tablet PO DAILY PRN Anxiety Ondansetron HCl 4 mg 11/08/23 15:42 Ondansetron 4 Mg/2 Ml Vial IV Q8H PRN PRN NAUSEA/VOMITING Pseudoephedrine HCl 60 mg 11/08/23 16:01 Pseudoephedrine 60 Mg Tablet PO BID PRN PRN ALLERGIES Sodium Chloride 10 - 40 ml 11/08/23 17:21 0.9% Saline Lock 10 Ml Syringe IV UD PRN SALINE FLUSH
== END 2023-11-09 12:44 | disposition home or self-care (01) ==
LOC: ED 14:35 → PCU 15:28
PROVIDERS: Admitting Provider Internal Medicine; Emergency Provider Emergency Medicine; PCP Family Medicine; Visit Provider Internal Medicine
DX: R20.2 Paresthesia of skin (principal); J44.9 Chronic obstructive pulmonary disease, unspecified; F41.9 Anxiety disorder, unspecified; F32.A Depression, unspecified; R94.31 Abnormal electrocardiogram [ECG] [EKG]; I44.4 Left anterior fascicular block; R11.0 Nausea; R20.0 Anesthesia of skin; Z79.82 Long term (current) use of aspirin; R55 Syncope and collapse; R03.0 Elevated blood-pressure reading, without diagnosis of hypertension; Z79.899 Other long term (current) drug therapy
CPT/HCPCS: 36415; 70450; 70496; 70498; 70551; 71045; 80048; 80061; 82962; 83036; 84443; 84484; 85025; 85610; 85730; 93005; 93306; 94762; 96360; 97165; 99221; 99285; Q9967; A4216; G0378

== ENCOUNTER 2024-05-29 07:00 | Outpatient (RCR) | payer MEDICARE, OTHER, SELFPAY ==
--- NOTE | 2024-03-28 07:43 | HP.PTEVAL_ITS ---
Patient's Visit Information Visit Information Visit Information: JHON STEPHENS II is a 73 year old M referred to Physical Therapy by Kennedy Bower PA-C with a diagnosis of Lumbar radiculopathy. Date of Evaluation: 03/28/24 Physical Therapist: Tex Pike, DPT, OCS, CSCS Visit Plan Frequency: 1-2x /Week Duration: 4-6 Weeks Plan: 1-2x/week for 3-4 weeks for IE HEP: psoas and HS stretch given 30 4x daily and pelvic tilt to NS position and ROM shown to patient for focus and through out day, also sleep with pillow b/w or under knees. treat with progression of these exercises, ensure doing the correct strength and NS with exercises, possible manual rollout to psoas, HS and ITB for stretching. Subjective Subjective: Went to doctor for back pain(back of hips). It is OK during the day unless he bends alot. Worse at night after lying for a while. Wakes him up after 1.5 hrs and then changes position. Gets up in am and is good as he moves. Doing all regular exercises for back given in PT 3x/week for LB ROM, and strengthening.3-5x/week. Walks one mile per day on TM and feels good with it. Sleeps on side mostly R and switches due to pain. Went to doctor and did x rays, gave flexeril at night and sent for PT. Took a dose of steroids for 5 days which ended Wednesday, and now on anti inflammatory. Pain LBP: Pain Intensity (Out of 10): 1 Pain Intensity Range: 1 and 7 Objective Objective: Walks into PT after doing his gym workout I. Transfers bed and chair I. LB AROM is painful at end range of ext> flexion and SB, all are moderately limited. HS and psoas and ITB max tight at -40 90/90 test and hip extension is painful in LB. reflexes 2/3 patella adn achilles B. Sensation LE WNL to gross light touch B. strength hips and knees and ankles 4/5 without pain, good AROM outside of flexibility deficits. PA pressure lumbar is painful. Hips are moving well and without pain, - KIN, - FADDIR, - scour B. Balance/Special Test Scores Oswestry Low Back Score: 5 Goals Goal 1:: sleep 4 hours without waking at night Goal Time Frame: 4-6 Weeks Goal 2:: IO appropriate ex to limit future problems. Goal Time Frame: 4-6 Weeks Goal 3:: oswestry score 3 or less. Goal Time Frame: 4-6 Weeks Rehabilitation Potential Physical Therapy Diagnosis: LB and leg stiffness creating pain and difficulty sleeping. Rehabilitation Potential: Good Anticipated Interventions Patient/Client Instruction: Educate patient on: Condition and Plan of Care For the Purpose of:: To decrease pain, To increase ROM, To improve nutrient delivery to tissue, To improve muscle performance and motor function and To increase tolerance to activity/condition/position Therapeutic Exercise to Include: Strength training, Postural training, Flexibilty training, Passive ROM and Active ROM For the Purpose of:: To decrease pain, To increase ROM, To improve nutrient delivery to tissue and To increase tolerance to activity/condition/position Manual Therapy Techniques to Include: Mobilization, Passive ROM and Soft tissue mobilization For the Purpose of:: To decrease pain, To increase ROM and To improve nutrient delivery to tissue Thermo therapy (hot pack): Yes For the Purpose of:: To increase ROM and To improve nutrient delivery to tissue Text: Thank you for the opportunity to evaluate your patient. For Medicare and Medicare HMO plans, please review the plan of care and approve it. It will need to be FAXED BACK to us at [phone] for Medicare purposes. For Medicare only, by signing this I certify the plan of care. Please let me know if there are questions or concerns regarding this plan of care. Physician Signat ure: Date:
--- NOTE | 2024-05-29 07:42 | HP.PTREVAL ---
Re-Evaluation Intro: Kennedy Bower PA-C, It has been my pleasure to treat JHON STEPHENS II over the last 4 visits for Lumbar radiculopathy. Please see the progress note below for an update on the physical therapy plan of care! Subjective Subjective: Got MRI results, kit is a mess. Objective Objective/Function: Ext mod limited, flexion mod limited, SB min limited. Technique on machine sis not bad, some cues needed for ROM on trunk exercises and NS posture but overall a good complete program performed well on machines. Plan Plan Plan: Pt to pursue injections, then may call for ex check(progression to quadruped and prone core strength and supine rotational trunk strength per tolerance. Pt to decide if needs to return after injection for re-eval Balance/Gait/Functional tests Balance/Special Test Scores Oswestry Low Back Score: 5 Goals Goals Goal 1:: sleep 4 hours without waking at night Goal Time Frame: 4-6 Weeks Goal Progress: Not Progressing Goal 2:: IO appropriate ex to limit future problems. Goal Time Frame: 4-6 Weeks Goal Progress: Goal Met, not helping Goal 3:: oswestry score 3 or less. Goal Time Frame: 4-6 Weeks Goal Progress: Not Progressing Anticipated Interventions Anticipated Interventions Patient/Client Instruction: Educate patient on: Condition and Plan of Care For the Purpose of:: To decrease pain, To increase ROM, To improve nutrient delivery to tissue, To improve muscle performance and motor function and To increase tolerance to activity/condition/position Therapeutic Exercise to Include: Strength training, Postural training, Flexibilty training, Passive ROM and Active ROM For the Purpose of:: To decrease pain, To increase ROM, To improve nutrient delivery to tissue and To increase tolerance to activity/condition/position Manual Therapy Techniques to Include: Mobilization, Passive ROM and Soft tissue mobilization For the Purpose of:: To decrease pain, To increase ROM and To improve nutrient delivery to tissue Thermo therapy (hot pack): Yes For the Purpose of:: To increase ROM and To improve nutrient delivery to tissue Re-Evaluation Ending Re-evaluation ending: Please do not hesitate to contact me at [phone] by phone or if you have questions or concerns regarding this new plan of care! Sincerely, Tex Pike, DPT, OCS, CSCS
--- NOTE | 2024-08-10 15:39 | HP.PT.NRP ---
Patient Information Patient Information: JHON STEPHENS II was seen in my office for initial evaluation on 03/28/24. The following Plan of Care was established for this patient: POC Established Initial Frequency: 1-2x /Week Initial Duration: 4-6 Weeks Anticipated Interventions Patient/Client Instruction: Educate patient on: Condition and Plan of Care For the Purpose of:: To decrease pain, To increase ROM, To improve nutrient delivery to tissue, To improve muscle performance and motor function and To increase tolerance to activity/condition/position Therapeutic Exercise to Include: Strength training, Postural training, Flexibilty training, Passive ROM and Active ROM For the Purpose of:: To decrease pain, To increase ROM, To improve nutrient delivery to tissue and To increase tolerance to activity/condition/position Manual Therapy Techniques to Include: Mobilization, Passive ROM and Soft tissue mobilization For the Purpose of:: To decrease pain, To increase ROM and To improve nutrient delivery to tissue Thermo therapy (hot pack): Yes For the Purpose of:: To increase ROM and To improve nutrient delivery to tissue Last Seen Last Seen: This patient was last seen in our office 05/29/24. Pertinent comments regarding their Physical therapy will appear below: Pt seen 4 visits of ex instruction. HE was pursuing further injections at the time of his last visit and I in HEP/gym exercises. he was to contact me if he needed further ex but has been over two months at this point and I will discontinue him from my care. At this point I will be discontinuing this patient from physical therapy. I would be happy to see this patient again in the future if found appropriate by the physician. Thank you! Tex Pike, DPT, OCS, CSCS Balance/Gait/Functional tests Balance/Special Test Scores Oswestry Low Back Score: 5
== END 2024-05-29 19:00 | disposition home or self-care (01) ==
LOC: PT 07:00
PROVIDERS: PCP Family Medicine; Referring Provider Physician Assistant; Visit Provider Physician Assistant
DX: M54.16 Radiculopathy, lumbar region (principal); M54.59 Other low back pain; M16.0 Bilateral primary osteoarthritis of hip
CPT/HCPCS: 97110; 97161